=== PATIENT | male | born 1950 | race Caucasian/White ===

== ENCOUNTER 2021-05-31 14:28 | Emergency (ER) | payer MEDICARE, OTHER ==
[2021-05-31] MEDS ORDERED: Sodium Chloride 0.9% 10 ML Syringe FLUSH PRN (15:18)
[2021-05-31] MEDS ORDERED: Sodium Chloride 0.9% 2.5 ML Syringe FLUSH PRN (15:18)
[2021-05-31] MEDS ORDERED: Sodium Chloride 0.9% 1,000 ML IV ONE (15:19)
--- NOTE | 2021-05-31 15:29 | EDM.PDOC ---
ED HPI GENERAL MEDICAL PROBLEM - General Chief Complaint: General Stated Complaint: DIZZY AND HAS NO BALANCE Time Seen by Provider: 05/31/21 15:16 - History of Present Illness INITIAL COMMENTS - FREE TEXT/NARRATIVE: History of present illness: [] The patient says he is dizzy. He can only walk. He is weak and cannot raise his arms very well. Nothing is asymmetric or focal. The patient says he not drinking. The last time he was here was 6 years ago and he was sent to [place] for acute alcohol intoxication and alcohol dependence. Review of systems: As per history of present illness and below otherwise all systems reviewed and negative. Past medical history: As per history of present illness and as reviewed below otherwise noncontributory. Surgical history: As per history of present illness and as reviewed below otherwise noncontributory. Social history: No reported history of drug or alcohol abuse. Family history: As per history of present illness and as reviewed below otherwise noncontributory. Physical exam: Constitutional - well developed, well-nourished and in no acute distress HEENT - normocephalic, no evidence of trauma - external nose and mouth normal - no mass in neck and no JVD - mucosae moist EYES - full EOM, PERRL, no icterus - no evidence of inflammation, injection, or drainage Respiratory - no respiratory distress, equal bilateral expansion, lungs clear to auscultation and no abnormal lung sounds Cardiovascular - Regular Rhythm with S1 and S2 appreciated and no murmur, gallop or rub. GI - abdomen soft without distension or organomegaly - normal bowel sounds - no guard or rebound Musculoskeletal no gross deformity of long bones or joints - no tenderness, swelling or edema Neurologic - Alert and oriented times four - CN II-XII grossly intact - motor sensory and coordination symmetrically normal Psychiatric - appropriate mood and affect with normal thought content Hematologic - No petechiae or purpura - mucosa appropriate color and sclera not pale - normal nail bed color and refill Integument - no rash or evidence of trauma - normal turgor Diagnostics: [] Therapeutics: [] Impression: [] Plan: [] Definitive disposition and diagnosis as appropriate pending reevaluation and review of above. - Related Data Allergies Allergy/AdvReac Type Severity Reaction Status Date / Time No Known Allergies Allergy Verified 05/31/21 15:10 Home Meds: Home Meds Multivitamin 1 tab PO DAILY 05/31/21 [History] Past Medical History Other HEENT History: glasses Other Cardiovascular History: previously on metoprolol for blood pressure, denies taking medication at this time Other Musculoskeletal History: Fractured neck in 2001, refused surgery Other Psychiatric History: ETOH abuse - Past Surgical History Other Neurological Surgeries/Procedures: hx neck fracture Social & Family History - Family History Family Medical History: No Pertinent Family History - Tobacco Use Tobacco Use Status *Q: Never Tobacco User - Recreational Drug Use Recreational Drug Use: No ED ROS GENERAL - Review of Systems Review Of Systems: Comprehensive ROS is negative, except as noted in HPI. ED EXAM, GENERAL - Physical Exam Exam: See Below Free Text/Narrative:: My physical exam is in the HPI #1 Interpretation EKG Interpretation Comments: KG sinus rhythm heart rate 79 NC 163 QT duration 445 axis 58 no acute injury impression no acute injury Course - Vital Signs Text/Narrative:: Patient has a broad-based gait and a little ataxia. This is not new according to the son's girlfriend. Patient says his home is fairly well elderly proved. He wants to go home. He is markedly improved after hydration and his blood pressure was raised a bit. He is advised to eat and drink a little more each day. Last Recorded V/S: Last Vital Signs Temp 35.9 C L 05/31/21 15:11 Pulse 76 05/31/21 15:11 Resp 17 05/31/21 15:11 BP 105/55 L 05/31/21 15:11 Pulse Ox 94 L 05/31/21 15:11 - Orders/Labs/Meds Orders: Active Orders 24 hr Category Date Time Status EKG Documentation Completion [RC] AM Care 05/31/21 15:18 Active UA W/OLIVERIO RFLX IF INDICATED [URIN] Stat Lab 05/31/21 17:05 Received Sodium Chloride 0.9% [Saline Flush] Med 05/31/21 15:18 Active 10 ml FLUSH ASDIRECTED PRN Sodium Chloride 0.9% [Saline Flush] Med 05/31/21 15:18 Active 2.5 ml FLUSH ASDIRECTED PRN Saline Lock Insert [OM.PC] Stat Oth 05/31/21 15:18 Ordered Medication Orders Sodium Chloride (Sodium Chloride 0.9% 10 Ml Syringe) 10 ml FLUSH ASDIRECTED PRN PRN Reason: Keep Vein Open Last Admin: 05/31/21 15:57 Dose: 10 ml Documented by: ROGELIO Sodium Chloride (Sodium Chloride 0.9% 2.5 Ml Syringe) 2.5 ml FLUSH ASDIRECTED PRN PRN Reason: Keep Vein Open Last Admin: 05/31/21 15:58 Dose: 2.5 ml Documented by: ROGELIO Labs: Laboratory Tests 05/31/21 05/31/21 05/31/21 Range/Units 15:54 15:54 15:54 WBC 4.77 (4.0-11.0) K/uL RBC 4.47 L (4.50-5.90) M/uL Hgb 14.0 (13.0-17.0) g/dL Hct 41.1 (38.0-50.0) % MCV 91.9 (80.0-98.0) fL MCH 31.3 (27.0-32.0) pg MCHC 34.1 (31.0-37.0) g/dL RDW Std Deviation 50.3 (28.0-62.0) fl RDW Coeff of Brian 15 (11.0-15.0) % Plt Count 156 (150-400) K/uL MPV 12.00 (7.40-12.00) fL Neut % (Auto) 47.8 L (48.0-80.0) % Lymph % (Auto) 36.3 (16.0-40.0) % [place] % (Auto) 12.6 (0.0-15.0) % Eos % (Auto) 2.9 (0.0-7.0) % Baso % (Auto) 0.4 (0.0-1.5) % Neut # (Auto) 2.3 (1.4-5.7) K/uL Lymph # (Auto) 1.7 (0.6-2.4) K/uL [place] # (Auto) 0.6 (0.0-0.8) K/uL Eos # (Auto) 0.1 (0.0-0.7) K/uL Baso # (Auto) 0.0 (0.0-0.1) K/uL Nucleated RBC % 0.0 /100WBC Nucleated RBCs # 0 K/uL Sodium 136 (136-148) mmol/L Potassium 4.2 (3.5-5.1) mmol/L Chloride 102 (98-107) mmol/L Carbon Dioxide 27.6 (21.0-32.0) mmol/L BUN 21 H (7.0-18.0) mg/dL Creatinine 1.0 (0.8-1.3) mg/dL Est Cr Clr Drug Dosing 61.20 mL/min Estimated GFR (MDRD) > 60.0 ml/min Glucose 89 (74-106) mg/dL Lactic Acid (0.4-2.0) mmol/L Calcium 9.3 (8.5-10.1) mg/dL Magnesium 1.9 (1.8-2.4) mg/dL Total Bilirubin 0.8 (0.2-1.0) mg/dL AST 30 (15-37) IU/L ALT 51 (14-63) IU/L Alkaline Phosphatase 69 (46-116) U/L Troponin I < 0.050 (0.000-0.056) ng/mL Total Protein 6.8 (6.4-8.2) g/dL Albumin 4.1 (3.4-5.0) g/dL Globulin 2.7 (2.6-4.0) g/dL Albumin/Globulin Ratio 1.5 (0.9-1.6) Ethyl Alcohol < 3.0 mg/dL 05/31/21 Range/Units 16:10 WBC (4.0-11.0) K/uL RBC (4.50-5.90) M/uL Hgb (13.0-17.0) g/dL Hct (38.0-50.0) % MCV (80.0-98.0) fL MCH (27.0-32.0) pg MCHC (31.0-37.0) g/dL RDW Std Deviation (28.0-62.0) fl RDW Coeff of Brian (11.0-15.0) % Plt Count (150-400) K/uL MPV (7.40-12.00) fL Neut % (Auto) (48.0-80.0) % Lymph % (Auto) (16.0-40.0) % [place] % (Auto) (0.0-15.0) % Eos % (Auto) (0.0-7.0) % Baso % (Auto) (0.0-1.5) % Neut # (Auto) (1.4-5.7) K/uL Lymph # (Auto) (0.6-2.4) K/uL [place] # (Auto) (0.0-0.8) K/uL Eos # (Auto) (0.0-0.7) K/uL Baso # (Auto) (0.0-0.1) K/uL Nucleated RBC % /100WBC Nucleated RBCs # K/uL Sodium (136-148) mmol/L Potassium (3.5-5.1) mmol/L Chloride (98-107) mmol/L Carbon Dioxide (21.0-32.0) mmol/L BUN (7.0-18.0) mg/dL Creatinine (0.8-1.3) mg/dL Est Cr Clr Drug Dosing mL/min Estimated GFR (MDRD) ml/min Glucose (74-106) mg/dL Lactic Acid 0.9 (0.4-2.0) mmol/L Calcium (8.5-10.1) mg/dL Magnesium (1.8-2.4) mg/dL Total Bilirubin (0.2-1.0) mg/dL AST (15-37) IU/L ALT (14-63) IU/L Alkaline Phosphatase (46-116) U/L Troponin I (0.000-0.056) ng/mL Total Protein (6.4-8.2) g/dL Albumin (3.4-5.0) g/dL Globulin (2.6-4.0) g/dL Albumin/Globulin Ratio (0.9-1.6) Ethyl Alcohol mg/dL Meds: Medications Generic Name Dose Route Start Last Admin Trade Name Freq PRN Reason Stop Dose Admin Sodium Chloride 10 ml 05/31/21 15:18 05/31/21 15:57 Sodium Chloride 0.9% 10 Ml Syringe FLUSH 10 ml ASDIRECTED PRN Administration Keep Vein Open Sodium Chloride 2.5 ml 05/31/21 15:18 05/31/21 15:58 Sodium Chloride 0.9% 2.5 Ml Syringe FLUSH 2.5 ml ASDIRECTED PRN Administration Keep Vein Open Discontinued Medications Generic Name Dose Route Start Last Admin Trade Name Freq PRN Reason Stop Dose Admin Sodium Chloride 1,000 mls @ 1,000 mls/hr 05/31/21 15:19 05/31/21 15:57 Normal Saline IV 05/31/21 16:18 1,000 mls/hr .Bolus ONE Administration Departure - Departure Time of Disposition: 17:16 Disposition: Home, Self-Care 01 Condition: Good Clinical Impression: Ataxia, Dehydration - Discharge Information Instructions: Dehydration, Adult, [id number] Referrals: PCP,None [Primary Care Provider] - Forms: ED Department Discharge Additional Instructions: Eat and drink more often and more The following information is given to patients seen in the emergency department who are being discharged to home. This information is to outline your options for follow-up care. We provide all patients seen in our emergency department with a follow-up referral. The need for follow-up, as well as the timing and circumstances, are variable depending upon the specifics of your emergency department visit. If you don't have a primary care physician on staff, we will provide you with a referral. We always advise you to contact your personal physician following an emergency department visit to inform them of the circumstance of the visit and for follow-up with them and/or the need for any referrals to a consulting specialist. The emergency department will also refer you to a specialist when appropriate. This referral assures that you have the opportunity for follow-up care with a specialist. All of these measure are taken in an effort to provide you with optimal care, which includes your follow-up. Under all circumstances we always encourage you to contact your private physician who remains a resource for coordinating your care. When calling for follow-up care, please make the office aware that this follow-up is from your recent emergency room visit. If for any reason you are refused follow-up, please contact the [facility] Emergency Department at and asked to speak to the emergency department charge nurse. [facility] - Primary Care [address] [place] [id number] [facility] [address] [place] [id number] Sepsis Event Note (ED) - Evaluation Sepsis Screening Result: No Definite Risk - Focused Exam Vital Signs: Vital Signs Temp Pulse Resp BP Pulse Ox 05/31/21 15:11 35.9 C L 76 17 105/55 L 94 L - My Orders Last 24 Hours: My Active Orders 05/31/21 15:18 EKG Documentation Completion [RC] AM Sodium Chloride 0.9% [Saline Flush] 10 ml FLUSH ASDIRECTED PRN Sodium Chloride 0.9% [Saline Flush] 2.5 ml FLUSH ASDIRECTED PRN Saline Lock Insert [OM.PC] Stat 05/31/21 17:05 UA W/OLIVERIO RFLX IF INDICATED [URIN] Stat - Assessment/Plan Last 24 Hours: My Active Orders 05/31/21 15:18 EKG Documentation Completion [RC] AM Sodium Chloride 0.9% [Saline Flush] 10 ml FLUSH ASDIRECTED PRN Sodium Chloride 0.9% [Saline Flush] 2.5 ml FLUSH ASDIRECTED PRN Saline Lock Insert [OM.PC] Stat 05/31/21 17:05 UA W/OLIVERIO RFLX IF INDICATED [URIN] Stat
[2021-05-31 16:46] LABS: BLOOD UREA NITROGEN,BUN 21 mg/dL (7.0-18.0); CARBON DIOXIDE,CO2 27.6 mmol/L (21.0-32.0); CHLORIDE,CL 102 mmol/L (98-107); GLUCOSE RANDOM 89 mg/dL (74-106); POTASSIUM,K 4.2 mmol/L (3.5-5.1); SODIUM,NA 136 mmol/L (136-148)
[2021-05-31 17:18] VITALS: BP 149/94; PULSE 90
== END 2021-05-31 17:43 | disposition home or self-care (01) ==
LOC: MW.ED 14:28
DX: R27.0 Ataxia, unspecified (principal); E86.0 Dehydration
CPT/HCPCS: 80053; 80307; 81003; 83605; 83735; 84484; 85025; 93005; 99285; J7030; 93010; 99284

== ENCOUNTER 2021-06-01 11:32 | Emergency (ER) | payer MEDICARE, OTHER ==
--- NOTE | 2021-06-01 12:28 | EDM.PDOC ---
ED HPI GENERAL MEDICAL PROBLEM - General Chief Complaint: General Stated Complaint: Couldnt walk this morning Time Seen by Provider: 06/01/21 11:34 - History of Present Illness INITIAL COMMENTS - FREE TEXT/NARRATIVE: History of present illness: [] Review of systems: As per history of present illness and below otherwise all systems reviewed and negative. Past medical history: As per history of present illness and as reviewed below otherwise noncontributory. The patient is weak. He has trouble walking. He had the same thing yesterday morning and was hydrated and afterwards he was able to walk with the same usual ataxic that he has experienced for quite some time. He is a former alcoholic but not drinking recently. Patient has no focal findings but feels weak in his upper and lower extremities. Surgical history: As per history of present illness and as reviewed below otherwise noncontributory. Social history: No reported history of drug or alcohol abuse. Family history: As per history of present illness and as reviewed below otherwise noncontributory. Physical exam: Constitutional - well developed, well-nourished and in no acute distress HEENT - normocephalic, no evidence of trauma - external nose and mouth normal - no mass in neck and no JVD - mucosae moist EYES - full EOM, PERRL, no icterus - no evidence of inflammation, injection, or drainage Respiratory - no respiratory distress, equal bilateral expansion, lungs clear to auscultation and no abnormal lung sounds Cardiovascular - Regular Rhythm with S1 and S2 appreciated and no murmur, gallop or rub. GI - abdomen soft without distension or organomegaly - normal bowel sounds - no guard or rebound Musculoskeletal no gross deformity of long bones or joints - no tenderness, swelling or edema Neurologic - Alert and oriented times four - CN II-XII grossly intact - motor sensory and coordination symmetrically normal Psychiatric - appropriate mood and affect with normal thought content Hematologic - No petechiae or purpura - mucosa appropriate color and sclera not pale - normal nail bed color and refill Integument - no rash or evidence of trauma - normal turgor Diagnostics: [] Therapeutics: [] Impression: [] Plan: [] Definitive disposition and diagnosis as appropriate pending reevaluation and review of above. - Related Data Allergies Allergy/AdvReac Type Severity Reaction Status Date / Time No Known Allergies Allergy Verified 06/01/21 12:26 Home Meds: Home Meds Multivitamin 1 tab PO DAILY 05/31/21 [History] Magnesium Oxide/Magnesium [Magnesium] 300 mg PO BID #60 capsule 06/01/21 [Rx] Past Medical History Other HEENT History: glasses Other Cardiovascular History: previously on metoprolol for blood pressure, denies taking medication at this time Other Musculoskeletal History: Fractured neck in 2001, refused surgery Other Psychiatric History: ETOH abuse - Past Surgical History Other Neurological Surgeries/Procedures: hx neck fracture Social & Family History - Family History Family Medical History: No Pertinent Family History ED ROS GENERAL - Review of Systems Review Of Systems: Comprehensive ROS is negative, except as noted in HPI. ED EXAM, GENERAL - Physical Exam Exam: See Below Free Text/Narrative:: My physical exam is in the HPI #1 Interpretation EKG Interpretation Comments: EKG sinus rhythm heart rate 86 MD interval 168 QT 463 axis 57 accelerated R wave progression in the precordium impression essentially normal Course - Vital Signs Last Recorded V/S: Last Vital Signs Temp 36.4 C 06/01/21 12:26 Pulse 67 06/01/21 16:09 Resp 18 06/01/21 13:58 BP 130/82 06/01/21 16:09 Pulse Ox 97 06/01/21 16:09 - Orders/Labs/Meds Orders: Active Orders 24 hr Category Date Time Status EKG Documentation Completion [RC] AM Care 06/01/21 12:37 Active RPR (SYPHILIS SERO) W/ RFLX [REF] Stat Lab 06/01/21 14:40 Received Sodium Chloride 0.9% [Saline Flush] Med 06/01/21 12:37 Active 10 ml FLUSH ASDIRECTED PRN Sodium Chloride 0.9% [Saline Flush] Med 06/01/21 12:37 Active 2.5 ml FLUSH ASDIRECTED PRN Saline Lock Insert [OM.PC] Stat Oth 06/01/21 12:37 Ordered Medication Orders Sodium Chloride (Sodium Chloride 0.9% 10 Ml Syringe) 10 ml FLUSH ASDIRECTED PRN PRN Reason: Keep Vein Open Last Admin: 06/01/21 13:24 Dose: 10 ml Documented by: [id number] Sodium Chloride (Sodium Chloride 0.9% 2.5 Ml Syringe) 2.5 ml FLUSH ASDIRECTED PRN PRN Reason: Keep Vein Open Last Admin: 06/01/21 13:24 Dose: 2.5 ml Documented by: [id number] Labs: Laboratory Tests 06/01/21 06/01/21 Range/Units 12:55 12:55 WBC 7.85 (4.0-11.0) K/uL RBC 4.51 (4.50-5.90) M/uL Hgb 14.0 (13.0-17.0) g/dL Hct 41.2 (38.0-50.0) % MCV 91.4 (80.0-98.0) fL MCH 31.0 (27.0-32.0) pg MCHC 34.0 (31.0-37.0) g/dL RDW Std Deviation 49.1 (28.0-62.0) fl RDW Coeff of Brian 15 (11.0-15.0) % Plt Count 154 (150-400) K/uL MPV 12.20 H (7.40-12.00) fL Neut % (Auto) 69.2 (48.0-80.0) % Lymph % (Auto) 17.6 (16.0-40.0) % [place] % (Auto) 11.8 (0.0-15.0) % Eos % (Auto) 1.1 (0.0-7.0) % Baso % (Auto) 0.3 (0.0-1.5) % Neut # (Auto) 5.4 (1.4-5.7) K/uL Lymph # (Auto) 1.4 (0.6-2.4) K/uL [place] # (Auto) 0.9 H (0.0-0.8) K/uL Eos # (Auto) 0.1 (0.0-0.7) K/uL Baso # (Auto) 0.0 (0.0-0.1) K/uL Nucleated RBC % 0.0 /100WBC Nucleated RBCs # 0 K/uL Sodium 140 (136-148) mmol/L Potassium 4.3 (3.5-5.1) mmol/L Chloride 105 (98-107) mmol/L Carbon Dioxide 28.0 (21.0-32.0) mmol/L BUN 18 (7.0-18.0) mg/dL Creatinine 1.0 (0.8-1.3) mg/dL Est Cr Clr Drug Dosing 61.20 mL/min Estimated GFR (MDRD) > 60.0 ml/min Glucose 95 (74-106) mg/dL Calcium 8.9 (8.5-10.1) mg/dL Magnesium 1.7 L (1.8-2.4) mg/dL Total Bilirubin 1.0 (0.2-1.0) mg/dL AST 38 H (15-37) IU/L ALT 45 (14-63) IU/L Alkaline Phosphatase 66 (46-116) U/L Total Protein 6.6 (6.4-8.2) g/dL Albumin 3.9 (3.4-5.0) g/dL Globulin 2.7 (2.6-4.0) g/dL Albumin/Globulin Ratio 1.4 (0.9-1.6) Meds: Medications Generic Name Dose Route Start Last Admin Trade Name Amado PRN Reason Stop Dose Admin Sodium Chloride 10 ml 06/01/21 12:37 06/01/21 13:24 Sodium Chloride 0.9% 10 Ml Syringe FLUSH 10 ml ASDIRECTED PRN Administration Keep Vein Open Sodium Chloride 2.5 ml 06/01/21 12:37 06/01/21 13:24 Sodium Chloride 0.9% 2.5 Ml Syringe FLUSH 2.5 ml ASDIRECTED PRN Administration Keep Vein Open Discontinued Medications Generic Name Dose Route Start Last Admin Trade Name Amado PRN Reason Stop Dose Admin Multivitamins/Minerals 10 ml/ 1,011.2 mls @ 999 mls/hr 06/01/21 13:15 06/01/21 13:24 Thiamine HCl 100 mg/ Folic IV 06/01/21 14:15 999 mls/hr Acid 1 mg/ Sodium Chloride ONETIME ONE Administration Iopamidol 100 ml 06/01/21 15:40 06/01/21 15:41 Iopamidol 755 Mg/Ml 500 Ml Multipack Bottle IVPUSH 06/01/21 15:41 100 ml ONETIME ONE Administration Departure - Departure Time of Disposition: 16:27 Disposition: Home, Self-Care 01 Condition: Good Clinical Impression: Ataxia - Discharge Information Prescriptions: Magnesium Oxide/Magnesium [Magnesium] 300 mg PO BID #60 capsule Referrals: PCP,None [Primary Care Provider] - Forms: ED Department Discharge Additional Instructions: You need to make an appointment with the neurology clinic in the meantime you need to take [id number] thiamine, [id number] folic acid, and one 325 mg aspirin daily. A prescription for magnesium replacement was also sent to your pharmacy. [facility] - Neurology Professional Building [address] [facility], [address] [place] [address] [facility] - Primary Care [address] [place] [id number] [facility] [address] [place] [id number] The following information is given to patients seen in the emergency department who are being discharged to home. This information is to outline your options for follow-up care. We provide all patients seen in our emergency department with a follow-up referral. The need for follow-up, as well as the timing and circumstances, are variable depending upon the specifics of your emergency department visit. If you don't have a primary care physician on staff, we will provide you with a referral. We always advise you to contact your personal physician following an emergency department visit to inform them of the circumstance of the visit and for follow-up with them and/or the need for any referrals to a consulting specialist. The emergency department will also refer you to a specialist when appropriate. This referral assures that you have the opportunity for follow-up care with a specialist. All of these measure are taken in an effort to provide you with optimal care, which includes your follow-up. Under all circumstances we always encourage you to contact your private physician who remains a resource for coordinating your care. When calling for follow-up care, please make the office aware that this follow-up is from your recent emergency room visit. If for any reason you are refused follow-up, please contact the [facility] Emergency Department at and asked to speak to the emergency department charge nurse. Sepsis Event Note (ED) - Focused Exam Vital Signs: Vital Signs Temp Pulse Resp BP Pulse Ox 06/01/21 16:09 67 130/82 97 06/01/21 16:05 76 130/82 96 06/01/21 13:58 77 18 116/77 98 06/01/21 13:28 79 17 98/61 94 L 06/01/21 12:26 36.4 C 87 17 100/55 L 97 - My Orders Last 24 Hours: My Active Orders 06/01/21 12:37 EKG Documentation Completion [RC] AM Sodium Chloride 0.9% [Saline Flush] 10 ml FLUSH ASDIRECTED PRN Sodium Chloride 0.9% [Saline Flush] 2.5 ml FLUSH ASDIRECTED PRN Saline Lock Insert [OM.PC] Stat 06/01/21 14:40 RPR (SYPHILIS SERO) W/ RFLX [REF] Stat - Assessment/Plan Last 24 Hours: My Active Orders 06/01/21 12:37 EKG Documentation Completion [RC] AM Sodium Chloride 0.9% [Saline Flush] 10 ml FLUSH ASDIRECTED PRN Sodium Chloride 0.9% [Saline Flush] 2.5 ml FLUSH ASDIRECTED PRN Saline Lock Insert [OM.PC] Stat 06/01/21 14:40 RPR (SYPHILIS SERO) W/ RFLX [REF] Stat
[2021-06-01] MEDS ORDERED: Sodium Chloride 0.9% 2.5 ML Syringe FLUSH PRN (12:37)
[2021-06-01] MEDS ORDERED: Sodium Chloride 0.9% 10 ML Syringe FLUSH PRN (12:37)
[2021-06-01] MEDS ORDERED: MVI, Adult with Vitamin K 10 ML, Thiamine 100 MG, Folic Acid 1 MG in Sodium Chloride 0.... IV ONE ×8 (12:38→13:15)
[2021-06-01 13:24] LABS: BLOOD UREA NITROGEN,BUN 18 mg/dL (7.0-18.0); CHLORIDE,CL 105 mmol/L (98-107); GLUCOSE RANDOM 95 mg/dL (74-106); POTASSIUM,K 4.3 mmol/L (3.5-5.1); SODIUM,NA 140 mmol/L (136-148)
[2021-06-01] MEDS ORDERED: Iopamidol 755 MG/ML 500 ML Multipack Bottle IVPUSH ONE (15:40)
--- NOTE | 2021-06-01 16:01 | CT ---
For Patients: As a result of the Century Cures Act, medical imaging exams and procedure reports are released immediately into your electronic medical record. You may view this report before your referring provider. If you have questions, please contact your health care provider. CT HEAD DATE: 06/01/2021 CLINICAL HISTORY: Patient with ataxia. TECHNIQUE: Standard CT scanning of the head was performed. COMPARISON: None. FINDINGS: There is no intracranial hemorrhage. There is no territorial infarction. There are moderate microangiopathic changes. There is diffuse parenchymal volume loss. There is no mass effect or midline shift. The calvarium is unremarkable. The orbits are unremarkable. The paranasal sinuses are unremarkable. The mastoid air cells are unremarkable. The soft tissues are unremarkable. IMPRESSION: 1. No intracranial hemorrhage or territorial infarction. 2. Moderate microangiopathic changes and diffuse parenchymal volume loss. Please note that all CT scans at this facility use dose modulation, iterative reconstruction, and/or weight-based dosing when appropriate to reduce radiation dose to as low as reasonably achievable. Dictated by: Jaya Dumont MD @ 06/01/2021 16:00:00 (Electronically Signed)
--- NOTE | 2021-06-01 16:05 | CT ---
DATE: 06/01/2021 CLINICAL HISTORY: Patient with ataxia. TECHNIQUE: Standard helical CT image acquisition through the head and neck was performed after intravenous contrast bolus enhancement. Multiplanar reconstructed images were performed and interpreted. COMPARISON: CT same day FINDINGS: The origins of the great vessels from the aortic arch are patent. The origin of the right vertebral artery demonstrates severe narrowing. The origin of the left vertebral artery is patent. The common carotid arteries are patent There is no stenosis at the origin of the right internal carotid artery. There is plaque without stenosis at the origin of the left internal carotid artery. The rest of the cervical segments of the internal carotid arteries are patent up to their intracranial segments. The intracranial segments of the internal carotid arteries are patent. The left vertebral artery is dominant. The cervical segments of the vertebral arteries are patent. The intracranial segments of the vertebral arteries are patent. The middle cerebral arteries are normal without aneurysm or proximal occlusion identified. The anterior cerebral arteries are normal without aneurysm or proximal occlusion identified. The anterior communicating artery is well visualized and appears normal. The basilar artery is normal without aneurysm or occlusion. The posterior cerebral arteries are normal without aneurysm or proximal occlusion. The visualized lung apices are unremarkable The thyroid gland is unremarkable. The soft tissues of the neck are unremarkable. There are degenerative changes in the cervical spine. IMPRESSION: 1. 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 Patent dominant left vertebral artery. 2. Patent rest of the cervical and proximal intracranial vasculature. Please note that all CT scans at this facility use dose modulation, iterative reconstruction, and/or weight-based dosing when appropriate to reduce radiation dose to as low as reasonably achievable. Dictated by Jaya Dumont MD @ 06/01/2021 4:04:[address] Jaya Dumont @ Jun 01 2021 4:04PM
[2021-06-01 16:09] VITALS: BP 130/82; PULSE 67
== END 2021-06-01 17:10 | disposition home or self-care (01) ==
LOC: MW.ED 11:32
DX: R27.0 Ataxia, unspecified (principal)
CPT/HCPCS: 36415; 70450; 70496; 70498; 80053; 83735; 85025; 86592; 93005; 96365; 99285; J3411; J7030; Q9967

== ENCOUNTER 2021-06-07 14:57 | Inpatient (IN) | payer MEDICARE, OTHER ==
[2021-06-07] MEDS ORDERED: Sodium Chloride 0.9% 500 ML IV ONE (15:27)
[2021-06-07] MEDS ORDERED: Sodium Chloride 0.9% 2.5 ML Syringe FLUSH PRN (15:27)
[2021-06-07] MEDS ORDERED: Sodium Chloride 0.9% 10 ML Syringe FLUSH PRN (15:27)
--- NOTE | 2021-06-07 15:30 | EDM.PDOC ---
ED HPI GENERAL MEDICAL PROBLEM - General Chief Complaint: General Stated Complaint: SOB Time Seen by Provider: 06/07/21 15:09 Source of Information: Reports: Patient History Limitations: Reports: No Limitations - History of Present Illness INITIAL COMMENTS - FREE TEXT/NARRATIVE: 71-year-old male past medical history alcohol abuse presents for worsening generalized weakness. Patient notes that he is been to the ER a couple of times in the last week for frequent falls. Patient denies having any falls today. Patient notes that he lives in a small house without air conditioning and that his son's mother had been helping to take care of him but feels like she is no longer able to take care of him. He did sit on the ground today because he felt weak and was unable to get up on his own. He notes that he was offered admission to the hospital the last time he was here but he declined. He feels like at this point he might benefit from subacute rehab therapy or at the least home health services as he feels unable to take care of himself at home. He notes several pound weight loss unintentionally over the last couple of years due to lack of appetite. He denies any chest pain or difficulty breathing. No recent fevers or illnesses. - Related Data Allergies Allergy/AdvReac Type Severity Reaction Status Date / Time No Known Allergies Allergy Verified 06/07/21 14:58 Home Meds: Home Meds Multivitamin 1 tab PO DAILY 05/31/21 [History] Magnesium Oxide/Magnesium [Magnesium] 300 mg PO BID #60 capsule 06/01/21 [Rx] Past Medical History Other HEENT History: glasses Other Cardiovascular History: previously on metoprolol for blood pressure, denies taking medication at this time Other Musculoskeletal History: Fractured neck in 2001, refused surgery Other Psychiatric History: ETOH abuse - Infectious Disease History Infectious Disease History: Reports: None - Past Surgical History Other Neurological Surgeries/Procedures: hx neck fracture Social & Family History - Family History Family Medical History: No Pertinent Family History - Tobacco Use Tobacco Use Status *Q: Never Tobacco User - Recreational Drug Use Recreational Drug Use: No ED ROS GENERAL - Review of Systems Review Of Systems: Comprehensive ROS is negative, except as noted in HPI. ED EXAM, GENERAL - Physical Exam Exam: See Below Exam Limited By: No Limitations General Appearance: Alert, WD/WN, No Apparent Distress Ears: Hearing Grossly Normal Throat/Mouth: Normal Voice, No Airway Compromise Head: Atraumatic, Normocephalic Neck: Normal Inspection, Non-Tender Respiratory/Chest: No Respiratory Distress, Lungs Clear, Normal Breath Sounds, No Accessory Muscle Use Cardiovascular: Normal Peripheral Pulses, Regular Rate, Rhythm GI/Abdominal: Soft, Non-Tender Back Exam: Normal Inspection Extremities: Normal Inspection Neurological: Alert, CN II-XII Intact, Normal Cognition, No Motor/Sensory Deficits Psychiatric: Normal Affect, Normal Mood Skin Exam: Warm, Dry, Intact, Normal Color #1 Interpretation EKG Date: 06/07/21 Time: 16:05 Rhythm: NSR Rate (Beats/Min): 78 Calvin: Normal P-Wave: Present QRS: Normal ST-T: Normal QT: Normal SC/PQ Interval: 162 Comparison: NA - No Prior EKG EKG Interpretation Comments: no ischemic changes identified Course - Vital Signs Last Recorded V/S: Last Vital Signs Temp 96.7 F L 06/07/21 14:59 Pulse 84 06/07/21 14:59 Resp 18 06/07/21 14:59 BP 103/73 06/07/21 14:59 Pulse Ox 95 06/07/21 14:59 - Orders/Labs/Meds Orders: Active Orders 24 hr Category Date Time Status Patient Status [ADT] Routine ADT 06/07/21 17:33 Ordered EKG Documentation Completion [RC] STAT Care 06/07/21 15:27 Active CORONAVIRUS COVID-19 LINDY [MOLEC] Stat Lab 06/07/21 15:32 Ordered LACTATE SEPSIS W/ REFLEX [CHEM] Stat Lab 06/07/21 16:05 Received Sodium Chloride 0.9% [Saline Flush] Med 06/07/21 15:27 Active 10 ml FLUSH ASDIRECTED PRN Sodium Chloride 0.9% [Saline Flush] Med 06/07/21 15:27 Active 2.5 ml FLUSH ASDIRECTED PRN Saline Lock Insert [OM.PC] Stat Oth 06/07/21 15:27 Ordered Medication Orders Sodium Chloride (Sodium Chloride 0.9% 10 Ml Syringe) 10 ml FLUSH ASDIRECTED PRN PRN Reason: Keep Vein Open Last Admin: 06/07/21 16:56 Dose: 10 ml Documented by: ANNE-MARIE Sodium Chloride (Sodium Chloride 0.9% 2.5 Ml Syringe) 2.5 ml FLUSH ASDIRECTED PRN PRN Reason: Keep Vein Open Last Admin: 06/07/21 16:57 Dose: 2.5 ml Documented by: ANNE-MARIE Labs: Laboratory Tests 06/07/21 06/07/21 06/07/21 Range/Units 15:41 16:05 16:05 WBC 6.99 (4.0-11.0) K/uL RBC 4.72 (4.50-5.90) M/uL Hgb 14.9 (13.0-17.0) g/dL Hct 43.8 (38.0-50.0) % MCV 92.8 (80.0-98.0) fL MCH 31.6 (27.0-32.0) pg MCHC 34.0 (31.0-37.0) g/dL RDW Std Deviation 49.6 (28.0-62.0) fl RDW Coeff of Brian 15 (11.0-15.0) % Plt Count 170 (150-400) K/uL MPV 11.90 (7.40-12.00) fL Neut % (Auto) 60.7 (48.0-80.0) % Lymph % (Auto) 25.3 (16.0-40.0) % [place] % (Auto) 11.0 (0.0-15.0) % Eos % (Auto) 2.4 (0.0-7.0) % Baso % (Auto) 0.6 (0.0-1.5) % Neut # (Auto) 4.2 (1.4-5.7) K/uL Lymph # (Auto) 1.8 (0.6-2.4) K/uL [place] # (Auto) 0.8 (0.0-0.8) K/uL Eos # (Auto) 0.2 (0.0-0.7) K/uL Baso # (Auto) 0.0 (0.0-0.1) K/uL Nucleated RBC % 0.0 /100WBC Nucleated RBCs # 0 K/uL Sodium 135 L (136-148) mmol/L Potassium 5.0 (3.5-5.1) mmol/L Chloride 100 (98-107) mmol/L Carbon Dioxide 31.6 (21.0-32.0) mmol/L BUN 18 (7.0-18.0) mg/dL Creatinine 0.9 (0.8-1.3) mg/dL Est Cr Clr Drug Dosing 53.93 mL/min Estimated GFR (MDRD) > 60.0 ml/min Glucose 98 (74-106) mg/dL Calcium 9.3 (8.5-10.1) mg/dL Magnesium 2.0 (1.8-2.4) mg/dL Total Bilirubin 1.0 (0.2-1.0) mg/dL AST 40 H (15-37) IU/L ALT 48 (14-63) IU/L Alkaline Phosphatase 78 (46-116) U/L Troponin I < 0.050 (0.000-0.056) ng/mL Total Protein 7.1 (6.4-8.2) g/dL Albumin 3.8 (3.4-5.0) g/dL Globulin 3.3 (2.6-4.0) g/dL Albumin/Globulin Ratio 1.2 (0.9-1.6) Lipase 158 (73-393) U/L Free T4 1.21 (0.76-1.46) ng/dL TSH, Ultra Sensitive 5.30 H (0.36-3.74) uIU/mL Urine Color YELLOW Urine Appearance CLEAR Urine pH 6.0 (5.0-8.0) Ur Specific [place] 1.020 (1.001-1.035) Urine Protein NEGATIVE (NEGATIVE) mg/dL Urine Glucose (UA) NEGATIVE (NEGATIVE) mg/dL Urine Ketones NEGATIVE (NEGATIVE) mg/dL Urine Occult Blood NEGATIVE (NEGATIVE) Urine Nitrite NEGATIVE (NEGATIVE) Urine Bilirubin NEGATIVE (NEGATIVE) Urine Urobilinogen 0.2 (<2.0) EU/dL Ur Leukocyte Esterase NEGATIVE (NEGATIVE) Meds: Medications Generic Name Dose Route Start Last Admin Trade Name Freq PRN Reason Stop Dose Admin Sodium Chloride 10 ml 06/07/21 15:27 06/07/21 16:56 Sodium Chloride 0.9% 10 Ml Syringe FLUSH 10 ml ASDIRECTED PRN Administration Keep Vein Open Sodium Chloride 2.5 ml 06/07/21 15:27 06/07/21 16:57 Sodium Chloride 0.9% 2.5 Ml Syringe FLUSH 2.5 ml ASDIRECTED PRN Administration Keep Vein Open Discontinued Medications Generic Name Dose Route Start Last Admin Trade Name Freq PRN Reason Stop Dose Admin Sodium Chloride 500 mls @ 999 mls/hr 06/07/21 15:27 06/07/21 16:56 Normal Saline IV 06/07/21 15:57 999 mls/hr .Bolus ONE Administration - Re-Assessments/Exams Free Text/Narrative Re-Assessment/Exam: 06/07/21 15:32 Patient's symptoms concerning for adult failure to thrive. Will get labs. Will get head CT. Will get EKG. After screening for acute medical pathology anticipate admission for further work-up and longer term planning. 06/07/21 17:33 Patient's labs are unremarkable. I did discuss the case with the hospitalist who agrees with plan for admission for further work-up and longer-term planning. Patient is also very agreeable to stay. He is willing to do either subacute rehab or potentially home health after building up his strength. Departure - Departure Time of Disposition: 17:34 Disposition: Admitted As Inpatient 64 Condition: Good Clinical Impression: Ambulatory dysfunction - Discharge Information Referrals: PCP,None [Primary Care Provider] - Forms: ED Department Discharge Sepsis Event Note (ED) - Evaluation Sepsis Screening Result: No Definite Risk - Focused Exam Vital Signs: Vital Signs Temp Pulse Resp BP Pulse Ox 06/07/21 14:59 96.7 F L 84 18 103/73 95 - My Orders Last 24 Hours: My Active Orders 06/07/21 15:27 EKG Documentation Completion [RC] STAT Sodium Chloride 0.9% [Saline Flush] 10 ml FLUSH ASDIRECTED PRN Sodium Chloride 0.9% [Saline Flush] 2.5 ml FLUSH ASDIRECTED PRN Saline Lock Insert [OM.PC] Stat 06/07/21 15:32 CORONAVIRUS COVID-19 LINDY [MOLEC] Stat 06/07/21 16:05 LACTATE SEPSIS W/ REFLEX [CHEM] Stat 06/07/21 17:33 Patient Status [ADT] Routine - Assessment/Plan Last 24 Hours: My Active Orders 06/07/21 15:27 EKG Documentation Completion [RC] STAT Sodium Chloride 0.9% [Saline Flush] 10 ml FLUSH ASDIRECTED PRN Sodium Chloride 0.9% [Saline Flush] 2.5 ml FLUSH ASDIRECTED PRN Saline Lock Insert [OM.PC] Stat 06/07/21 15:32 CORONAVIRUS COVID-19 LINDY [MOLEC] Stat 06/07/21 16:05 LACTATE SEPSIS W/ REFLEX [CHEM] Stat 06/07/21 17:33 Patient Status [ADT] Routine
--- NOTE | 2021-06-07 16:07 | CT ---
INDICATION: Generalized weakness TECHNIQUE: CT head without contrast. COMPARISON: 06/01/2021 FINDINGS: CSF spaces: Within normal limits for age. Brain parenchyma: The hooks-white differentiation is normal. No sign of mass, hemorrhage, or midline shift. Periventricular white matter changes consistent chronic microvascular disease. Mild diffuse volume loss. Skull base and calvarium: The visualized paranasal sinuses and mastoid air cells demonstrate no acute or significant findings. The visualized orbits are grossly unremarkable. No skull fractures. Right high parietal scalp hematoma. IMPRESSION: High right parietal scalp hematoma with no associated fractures or evidence of acute intracranial trauma. Ventricular white matter changes consistent chronic microvascular disease. Mild diffuse fine nose. Please note that all CT scans at this facility use dose modulation, iterative reconstruction, and/or weight-based dosing when appropriate to reduce radiation dose to as low as reasonably achievable. Dictated by Ho Garcia MD @ 06/07/2021 4:04:[address] Ho Garcia @ Jun 07 2021 4:04PM
[2021-06-07 16:49] LABS: BLOOD UREA NITROGEN,BUN 18 mg/dL (7.0-18.0); CARBON DIOXIDE,CO2 31.6 mmol/L (21.0-32.0); CHLORIDE,CL 100 mmol/L (98-107); GLUCOSE RANDOM 98 mg/dL (74-106); LIPASE 158 U/L (73-393); SODIUM,NA 135 mmol/L (136-148)
[2021-06-07] MEDS ORDERED: Ondansetron 4 MG/2 ML SDV IVPUSH PRN (18:30)
[2021-06-07] MEDS ORDERED: Acetaminophen 325 MG Tab PO PRN (18:30)
[2021-06-07] MEDS ORDERED: Albuterol/Ipratropium 3.0-0.5 MG/3 ML Neb Soln NEB PRN (18:30)
--- NOTE | 2021-06-07 18:36 | PCM.HP.2 ---
H&P History of Present Illness - General Date of Service: 06/07/21 Admit Problem/Dx: Admission Diagnosis/Problem Admission Diagnosis/Problem Ambulatory dysfunction History Limitations: Reports: No Limitations - History of Present Illness Initial Comments - Free Text/Narative: 71-year-old male past medical history alcohol abuse presents for worsening generalized weakness. Patient has been seen in ER a few times in last week for frequent falls and generalized weakness. Patient denies having any falls today but got so weak that he had to sit down and was unable to get up again. Patient notes that he lives in a small house without air conditioning and that his son's mother had been helping to take care of him but feels like she no longer can help him with that. Patient states he was offered admission to the hospital the last time he was here but he declined. He feels like at this point he might benefit from subacute rehab therapy or at the least home health services as he feels unable to take care of himself at home. Patient states that he has suffered several pound weight loss unintentionally over the last couple of years due to lack of appetite. He denies any chest pain or difficulty breathing. No recent fevers or illnesses. Work up in ER including cbc bmp, and imagining was unremarkable for any acute findings. Patient was admitted for further management. Denied seeing any doctor in recent past. No recent colonoscopy. - Related Data Allergies/Adverse Reactions: Allergies Allergy/AdvReac Type Severity Reaction Status Date / Time No Known Allergies Allergy Verified 06/07/21 18:48 Home Medications: Home Meds Multivitamin 1 tab PO DAILY 05/31/21 [History] Magnesium Oxide/Magnesium [Magnesium] 300 mg PO BID #60 capsule 06/01/21 [Rx] Aspirin 81 mg PO DAILY 06/07/21 [History] Cyanocobalamin/Folic AC/Vit B6 [B Complex-Folic Acid] 1 tab PO DAILY 06/07/21 [History] Past Medical History Other HEENT History: glasses Other Cardiovascular History: previously on metoprolol for blood pressure, denies taking medication at this time Other Musculoskeletal History: Fractured neck in 2001, refused surgery Other Psychiatric History: ETOH abuse - Infectious Disease History Infectious Disease History: Reports: None - Past Surgical History Other Neurological Surgeries/Procedures: hx neck fracture Social & Family History - Family History Family Medical History: No Pertinent Family History - Tobacco Use Tobacco Use Status *Q: Never Tobacco User - Recreational Drug Use Recreational Drug Use: No H&P Review of Systems - Review of Systems: Review Of Systems: See Below General: Reports: Chills, Weakness, Fatigue, Night Sweats, Decreased Appetite, Weight Loss. Denies: Fever, Malaise, Diaphoresis Pulmonary: Denies: Wheezing, Pleuritic Chest Pain Cardiovascular: Denies: Chest Pain, Palpitations, Dyspnea on Exertion Gastrointestinal: Reports: Anorexia. Denies: Abdominal Pain, Black Stool, Bloody Stool, Constipation, Diarrhea, Hematemesis Genitourinary: Reports: Dysuria, Frequency. Denies: Burning Musculoskeletal: Reports: Shoulder Pain. Denies: Neck Pain, Arm Pain Skin: Denies: Cyanosis, Jaundice, Mottled Psychiatric: Denies: Confusion, Depression, Mood Lability Neurological: Reports: Dizziness, Difficulty Walking, Weakness. Denies: Confusion, Headache, Numbness Hematologic/Lymphatic: Denies: Anemia, Easy Bleeding, Easy Bruising Exam - Exam Exam: See Below - Vital Signs Vital Signs: Last Vital Signs Temp 36.3 C 06/07/21 18: Pulse 81 06/07/21 18:22 Resp 20 06/07/21 18:22 BP 101/74 06/07/21 18: Pulse Ox 96 06/07/21 18:22 Weight: 52.163 kg - Exam General: Alert, Oriented Neck: Supple Lungs: Clear to Auscultation, Normal Respiratory Effort Cardiovascular: Regular Rate, Regular Rhythm, Normal S1, Normal S2 Extremities: Normal Inspection, Normal Range of Motion Skin: Warm, Dry Neurological: Cranial Nerves Intact, Reflexes Equal Bilateral, Strength Equal Bilateral - Patient Data Lab Results Last 24 hrs: Laboratory Results - last 24 hr 06/07/21 06/07/21 06/07/21 Range/Units 15:41 16:05 16:05 WBC (4.0-11.0) K/uL RBC (4.50-5.90) M/uL Hgb (13.0-17.0) g/dL Hct (38.0-50.0) % MCV (80.0-98.0) fL MCH (27.0-32.0) pg MCHC (31.0-37.0) g/dL RDW Std Deviation (28.0-62.0) fl RDW Coeff of Brian (11.0-15.0) % Plt Count (150-400) K/uL MPV (7.40-12.00) fL Neut % (Auto) (48.0-80.0) % Lymph % (Auto) (16.0-40.0) % [place] % (Auto) (0.0-15.0) % Eos % (Auto) (0.0-7.0) % Baso % (Auto) (0.0-1.5) % Neut # (Auto) (1.4-5.7) K/uL Lymph # (Auto) (0.6-2.4) K/uL [place] # (Auto) (0.0-0.8) K/uL Eos # (Auto) (0.0-0.7) K/uL Baso # (Auto) (0.0-0.1) K/uL Nucleated RBC % /100WBC Nucleated RBCs # K/uL Sodium 135 L (136-148) mmol/L Potassium 5.0 (3.5-5.1) mmol/L Chloride 100 (98-107) mmol/L Carbon Dioxide 31.6 (21.0-32.0) mmol/L BUN 18 (7.0-18.0) mg/dL Creatinine 0.9 (0.8-1.3) mg/dL Est Cr Clr Drug Dosing 53.93 mL/min Estimated GFR (MDRD) > 60.0 ml/min Glucose 98 (74-106) mg/dL Lactic Acid 1.5 (0.4-2.0) mmol/L Calcium 9.3 (8.5-10.1) mg/dL Magnesium 2.0 (1.8-2.4) mg/dL Total Bilirubin 1.0 (0.2-1.0) mg/dL AST 40 H (15-37) IU/L ALT 48 (14-63) IU/L Alkaline Phosphatase 78 (46-116) U/L Troponin I < 0.050 (0.000-0.056) ng/mL Total Protein 7.1 (6.4-8.2) g/dL Albumin 3.8 (3.4-5.0) g/dL Globulin 3.3 (2.6-4.0) g/dL Albumin/Globulin Ratio 1.2 (0.9-1.6) Lipase 158 (73-393) U/L Free T4 1.21 (0.76-1.46) ng/dL TSH, Ultra Sensitive 5.30 H (0.36-3.74) uIU/mL Urine Color YELLOW Urine Appearance CLEAR Urine pH 6.0 (5.0-8.0) Ur Specific [place] 1.020 (1.001-1.035) Urine Protein NEGATIVE (NEGATIVE) mg/dL Urine Glucose (UA) NEGATIVE (NEGATIVE) mg/dL Urine Ketones NEGATIVE (NEGATIVE) mg/dL Urine Occult Blood NEGATIVE (NEGATIVE) Urine Nitrite NEGATIVE (NEGATIVE) Urine Bilirubin NEGATIVE (NEGATIVE) Urine Urobilinogen 0.2 (<2.0) EU/dL Ur Leukocyte Esterase NEGATIVE (NEGATIVE) 06/07/21 Range/Units 16:05 WBC 6.99 (4.0-11.0) K/uL RBC 4.72 (4.50-5.90) M/uL Hgb 14.9 (13.0-17.0) g/dL Hct 43.8 (38.0-50.0) % MCV 92.8 (80.0-98.0) fL MCH 31.6 (27.0-32.0) pg MCHC 34.0 (31.0-37.0) g/dL RDW Std Deviation 49.6 (28.0-62.0) fl RDW Coeff of Brian 15 (11.0-15.0) % Plt Count 170 (150-400) K/uL MPV 11.90 (7.40-12.00) fL Neut % (Auto) 60.7 (48.0-80.0) % Lymph % (Auto) 25.3 (16.0-40.0) % [place] % (Auto) 11.0 (0.0-15.0) % Eos % (Auto) 2.4 (0.0-7.0) % Baso % (Auto) 0.6 (0.0-1.5) % Neut # (Auto) 4.2 (1.4-5.7) K/uL Lymph # (Auto) 1.8 (0.6-2.4) K/uL [place] # (Auto) 0.8 (0.0-0.8) K/uL Eos # (Auto) 0.2 (0.0-0.7) K/uL Baso # (Auto) 0.0 (0.0-0.1) K/uL Nucleated RBC % 0.0 /100WBC Nucleated RBCs # 0 K/uL Sodium (136-148) mmol/L Potassium (3.5-5.1) mmol/L Chloride (98-107) mmol/L Carbon Dioxide (21.0-32.0) mmol/L BUN (7.0-18.0) mg/dL Creatinine (0.8-1.3) mg/dL Est Cr Clr Drug Dosing mL/min Estimated GFR (MDRD) ml/min Glucose (74-106) mg/dL Lactic Acid (0.4-2.0) mmol/L Calcium (8.5-10.1) mg/dL Magnesium (1.8-2.4) mg/dL Total Bilirubin (0.2-1.0) mg/dL AST (15-37) IU/L ALT (14-63) IU/L Alkaline Phosphatase (46-116) U/L Troponin I (0.000-0.056) ng/mL Total Protein (6.4-8.2) g/dL Albumin (3.4-5.0) g/dL Globulin (2.6-4.0) g/dL Albumin/Globulin Ratio (0.9-1.6) Lipase (73-393) U/L Free T4 (0.76-1.46) ng/dL TSH, Ultra Sensitive (0.36-3.74) uIU/mL Urine Color Urine Appearance Urine pH (5.0-8.0) Ur Specific [place] (1.001-1.035) Urine Protein (NEGATIVE) mg/dL Urine Glucose (UA) (NEGATIVE) mg/dL Urine Ketones (NEGATIVE) mg/dL Urine Occult Blood (NEGATIVE) Urine Nitrite (NEGATIVE) Urine Bilirubin (NEGATIVE) Urine Urobilinogen (<2.0) EU/dL Ur Leukocyte Esterase (NEGATIVE) Result Diagrams: 06/07/21 16:05 06/07/21 16:05 Sepsis Event Note - Evaluation Sepsis Screening Result: No Definite Risk - Focused Exam Vital Signs: Vital Signs Temp Pulse Resp BP Pulse Ox 06/07/21 18:22 36.3 C 81 20 101/74 96 06/07/21 17:03 79 97/68 94 L 07/22/21 16:04 81 109/72 96 06/07/21 14:59 35.9 C L 84 18 103/73 95 - Problem List (1) Ambulatory dysfunction SNOMED Code(s): 855561281 ICD Code: R26.2 - DIFFICULTY IN WALKING, NOT ELSEWHERE CLASSIFIED Status: Acute Current Visit: Yes (2) Alcoholism SNOMED Code(s): 8384552 ICD Code: F10.20 - ALCOHOL DEPENDENCE, UNCOMPLICATED Status: Acute Current Visit: No (3) Ataxia SNOMED Code(s): 92156050 ICD Code: R27.0 - ATAXIA, UNSPECIFIED Status: Acute Current Visit: No (4) Generalized muscle weakness SNOMED Code(s): 17394853, 64769781 ICD Code: M62.81 - MUSCLE WEAKNESS (GENERALIZED) Status: Acute Current Visit: No (5) Unsteady gait SNOMED Code(s): 13574657 ICD Code: R26.81 - UNSTEADINESS ON FEET Status: Acute Current Visit: No (6) Unintentional weight loss SNOMED Code(s): 784216060 ICD Code: R63.4 - ABNORMAL WEIGHT LOSS Status: Acute Current Visit: Yes Problem List Initiated/Reviewed/Updated: Yes Orders Last 24hrs: Active Orders 24 hr Category Date Time Status Patient Status [ADT] Routine ADT 06/07/21 17:33 Active Ambulate [RC] ASDIRECTED Care 06/07/21 18:30 Ordered Antiembolic Devices [RC] PER UNIT ROUTINE Care 06/07/21 18:33 Ordered EKG Documentation Completion [RC] STAT Care 06/07/21 15:27 Active Oxygen Therapy [RC] PRN Care 06/07/21 18:30 Ordered Pulse Oximetry [RC] PRN Care 06/07/21 18:30 Ordered RT Aerosol Therapy [RC] ASDIRECTED Care 06/07/21 18:35 Ordered VTE/DVT Education [RC] PER UNIT ROUTINE Care 06/07/21 18:30 Ordered Vital Signs [RC] Q4H Care 06/07/21 18:30 Ordered Regular Diet [DIET] Diet 06/07/21 Dinner Ordered CORONAVIRUS COVID-19 LINDY [MOLEC] Stat Lab 06/07/21 15:32 Ordered Acetaminophen [TylenoL] Med 06/07/21 18:30 Ordered 650 mg PO Q4H PRN Albuterol/Ipratropium [DuoNeb 3.0-0.5 MG/3 ML] Med 06/07/21 18:30 Ordered 3 ml NEB Q4HRRT PRN Enoxaparin [Lovenox] Med 06/07/21 18:30 Ordered 40 mg SUBCUT Q24H Lactated Ringers @ 125 MLS/HR(1,000ml) Med 06/07/21 18:45 Ordered Lactated Ringers [Ringers, Lactated] 1,000 ml IV ASDIRECTED Ondansetron [Zofran] Med 06/07/21 18:30 Ordered 4 mg IVPUSH Q4H PRN Sodium Chloride 0.9% [Saline Flush] Med 06/07/21 15:27 Active 10 ml FLUSH ASDIRECTED PRN Sodium Chloride 0.9% [Saline Flush] Med 06/07/21 15:27 Active 2.5 ml FLUSH ASDIRECTED PRN Saline Lock Insert [OM.PC] Stat Oth 06/07/21 15:27 Ordered Sequential Compression Device [OM.PC] Per Unit Routine Oth 06/07/21 18:30 Ordered Medication Orders Acetaminophen (Acetaminophen 325 Mg Tab) 650 mg PO Q4H PRN PRN Reason: Pain (Mild 1-3)/fever Albuterol/Ipratropium (Albuterol/Ipratropium 3.0-0.5 Mg/3 Ml Neb Soln) 3 ml NEB Q4HRRT PRN PRN Reason: Shortness Of Breath/wheezing Enoxaparin Sodium (Enoxaparin 40 Mg/0.4 Ml Syringe) 40 mg SUBCUT Q24H RUTHY Lactated Ringer's (Ringers, Lactated) 1,000 mls @ 125 mls/hr IV ASDIRECTED RUTHY Ondansetron HCl (Ondansetron 4 Mg/2 Ml Sdv) 4 mg IVPUSH Q4H PRN PRN Reason: Nausea/Vomiting Sodium Chloride (Sodium Chloride 0.9% 10 Ml Syringe) 10 ml FLUSH ASDIRECTED PRN PRN Reason: Keep Vein Open Last Admin: 06/07/21 16:56 Dose: 10 ml Documented by: GROTALI Sodium Chloride (Sodium Chloride 0.9% 2.5 Ml Syringe) 2.5 ml FLUSH ASDIRECTED PRN PRN Reason: Keep Vein Open Last Admin: 06/07/21 16:57 Dose: 2.5 ml Documented by: ANNE-MARIE Assessment/Plan Comment:: 71 y/o M admitted for generalized weakness, frequent falls, ambulatory dysfunction No eating as much, weight loss, BMI 18.3 start iv fluids, start supplements regular diet Duonebs as needed iv thiamine check b12, tsh Supportive care Pt consult for ambulation and strength Patient interested in rehab placement needs outpatient colonoscopy
[2021-06-07] MEDS: Lactated Ringers 1,000 ML IV SCH (18:55)
[2021-06-07] MEDS: Enoxaparin 40 MG/0.4 ML Syringe SUBCUT SCH (20:00)
[2021-06-07] MEDS: Thiamine 100 MG in Sodium Chloride 0.9% 100 ML IV SCH (20:00)
--- NOTE | 2021-06-07 23:58 | CR ---
For Patients: As a result of the Cures Act, medical imaging exams and procedure reports are released immediately into your electronic medical record. You may view this report before your referring provider. If you have questions, please contact your health care provider. INDICATION: Shortness of breath TECHNIQUE: Chest radiograph 1 view on 2 films COMPARISON: None FINDINGS: Mediastinum: The mediastinum is normal in appearance. The heart silhouette is normal in size and morphology. Moderate elevation of the left hemidiaphragm is present with gas distention of multiple bowel loops noted. Lung: Mild compressive atelectasis in the medial left lung base is seen. No sign of pleural effusion seen. No pneumothorax is identified. Bone and Soft tissue: Unremarkable for age. IMPRESSION: 1. Mild compressive atelectasis in the medial left lung base is seen. Dictated by Hardy Boggs MD @ 06/07/2021 11:56:38 PM Dictated by: Hardy Boggs MD @ 06/07/2021 23:56:50 (Electronically Signed)
--- NOTE | 2021-06-08 08:05 | MR ---
INDICATION: Ataxia and dizziness. TECHNIQUE: Brain MRI without contrast. The following sequences were obtained: Sagittal T1 weighted sequence. DWI and ADC mapping sequences. Axial FLAIR and SANTO T2 weighted sequences. Axial SWI sequence. COMPARISON: Head CT from 06/07/2021. FINDINGS: No evidence of acute ischemia. No evidence of acute or chronic intracranial blood products. [id number] generalized parenchymal volume loss. Patchy FLAIR hyperintensities within the deep/periventricular supratentorial white matter, typical for chronic microvascular ischemic changes. No mass effect or herniation. No hydrocephalus or extra-axial collections. The pituitary gland, parasellar structures and optic chiasm are normal. Posterior fossa is normal. All the major intracranial vascular structures demonstrate normal flow-related signal. The orbital contents are normal. No calvarial or skull base marrow signal abnormality. No obstructive sinus disease. No extracranial soft tissue findings. IMPRESSION: 1. No acute infarction, intracranial hemorrhage or other acute intracranial pathology. 2. Mild to moderate generalized parenchymal volume loss. Mild burden of chronic microvascular ischemic changes within the supratentorial white matter. Dictated by Se Farias MD @ 06/08/2021 8:04:[address] Se Farias @ Jun 08 2021 8:04AM
--- NOTE | 2021-06-08 09:03 | CT ---
INDICATION: Dysphagia TECHNIQUE: CT of the neck before and after administration of 75 cc Isovue 370 IV iodinated contrast agent. Coronal and sagittal reconstructions are included. COMPARISON: CTA neck 06/01/2021. FINDINGS: There is no soft tissue mass or other lesion within the soft tissues of the suprahyoid or infrahyoid neck. No lymphadenopathy. The oral cavity, nasopharyngeal, oropharyngeal and hypopharyngeal mucosal spaces are normal. Periapical lucency adjacent to the roots of the remnant right maxillary 1st molar tooth. Large cavity in this tooth with erosion of the crown. The supraglottic, glottic and infraglottic larynx are normal. The parotid glands, submandibular and sublingual glands are normal in appearance. The thyroid gland is normal in appearance. Incidental tonsilliths in the palatine tonsils. The vascular structures opacify normally with contrast material. Very large anterior osteophytes noted at C3-4 and C4-5 levels and to lesser extent at C5-6 C6-7 C7-T1 and T1-2 levels. This results in mass effect on the hypopharynx and oropharynx. There is degenerative autofusion of the C2-3 vertebral bodies, C4-5, C5-6 and C6-7 vertebral bodies. Anterolisthesis at C7-T1 and T1-2. Schmorl`s node in the T1 superior endplate. No lytic or blastic osseous lesions. C1-2: No spinal canal stenosis. C2-3: No spinal canal stenosis or neural from narrowing. Moderate right facet arthropathy. C3-4: Disc osteophyte complex results in mild spinal canal narrowing. Severe left neural foraminal narrowing due to uncovertebral spurring and facet hypertrophy. Mild right neural foraminal narrowing due to same. C4-5: Disc osteophyte complex results in mild spinal canal narrowing. Mild bilateral neural foramina due to uncovertebral spurring and facet hypertrophy. C5-6: Disc osteophyte complex results in mild spinal canal narrowing. Moderate bilateral neural foramina narrowing due to uncovertebral spurring and facet arthropathy. C6-7: Disc osteophyte complex results in mild spinal canal narrowing. Mild bilateral neural foramina narrowing due to uncovertebral spurring. C7-T1: Grade 1 anterolisthesis. No spinal canal stenosis. Moderate facet arthrosis. T1-2: Grade 1 anterolisthesis. No spinal canal stenosis or neural foramina narrowing. Visualized paranasal sinuses and mastoid air cells are clear. Visualized orbital and intracranial contents are normal. Moderate opacification of the bilateral external ear canals likely due to cerumen. Supraclavicular regions, mediastinum and soft tissues of the imaged chest wall are normal. Visualized portions of the upper lungs are clear. IMPRESSION: 1. Multilevel advanced cervical spondylosis with large anterior osteophytic spurs at C3-4, C4-5, C5-6, C6-7 C7-T1 and T1-2 which results in mass effect on the hypopharynx and may result in dysphagia. There is degenerative autofusion of the C2-3 vertebral bodies, C4-5, C5-6 and C6-7 vertebral bodies. 2. No suspicious enhancement or soft tissue mass in the neck to account for the patient`s symptoms. 3. No evidence of acute inflammation. 4. No cervical lymphadenopathy. 5. Moderate opacification of the bilateral external ear canals likely due to cerumen. Please note that all CT scans at this facility use dose modulation, iterative reconstruction, and/or weight-based dosing when appropriate to reduce radiation dose to as low as reasonably achievable. Dictated by Ho Riley MD @ 06/08/2021 9:02:[address] Ho Riley @ Jun 08 2021 9:02AM
[2021-06-08] MEDS: THIAMINE IV SCH (09:59)
[2021-06-08] MEDS: Thiamine 100 MG in Sodium Chloride 0.9% 100 ML IV SCH (10:32)
--- NOTE | 2021-06-08 13:35 | PCM.PN ---
- General Info Date of Service: 06/08/21 Admission Dx/Problem (Free Text): Admission Diagnosis/Problem Admission Diagnosis/Problem Ambulatory dysfunction Subjective Update: seen at bedside, no acite distress, c/o dysphagia eating omelet Functional Status: Reports: Ambulating, Urinating. Denies: Tolerating Diet - Review of Systems General: Reports: Weakness, Fatigue. Denies: Fever, Malaise Pulmonary: Denies: Shortness of Breath, Pleuritic Chest Pain Cardiovascular: Denies: Chest Pain, Palpitations Gastrointestinal: Reports: Difficulty Swallowing. Denies: Abdominal Pain, Constipation, Decreased Appetite Genitourinary: Denies: Dysuria, Frequency, Burning Musculoskeletal: Denies: Neck Pain, Shoulder Pain, Arm Pain Skin: Denies: Cyanosis, Jaundice, Mottled - Patient Data Vitals - Most Recent: Last Vital Signs Temp 36.4 C 06/08/21 12:00 Pulse 73 06/08/21 12:00 Resp 16 06/08/21 12:00 BP 145/81 H 06/08/21 12:00 Pulse Ox 98 06/08/21 12:00 Weight - Most Recent: 66.281 kg I&O - Last 24 Hours: Intake & Output 06/07/21 06/08/21 06/08/21 22:59 06:59 14:59 Intake Total 250 Output Total 650 Balance -400 Lab Results Last 24 Hours: Laboratory Results - last 24 hr 06/07/21 06/07/21 06/07/21 Range/Units 15:41 16:05 16:05 WBC (4.0-11.0) K/uL RBC (4.50-5.90) M/uL Hgb (13.0-17.0) g/dL Hct (38.0-50.0) % MCV (80.0-98.0) fL MCH (27.0-32.0) pg MCHC (31.0-37.0) g/dL RDW Std Deviation (28.0-62.0) fl RDW Coeff of Brian (11.0-15.0) % Plt Count (150-400) K/uL MPV (7.40-12.00) fL Neut % (Auto) (48.0-80.0) % Lymph % (Auto) (16.0-40.0) % [place] % (Auto) (0.0-15.0) % Eos % (Auto) (0.0-7.0) % Baso % (Auto) (0.0-1.5) % Neut # (Auto) (1.4-5.7) K/uL Lymph # (Auto) (0.6-2.4) K/uL [place] # (Auto) (0.0-0.8) K/uL Eos # (Auto) (0.0-0.7) K/uL Baso # (Auto) (0.0-0.1) K/uL Nucleated RBC % /100WBC Nucleated RBCs # K/uL Sodium 135 L (136-148) mmol/L Potassium 5.0 (3.5-5.1) mmol/L Chloride 100 (98-107) mmol/L Carbon Dioxide 31.6 (21.0-32.0) mmol/L BUN 18 (7.0-18.0) mg/dL Creatinine 0.9 (0.8-1.3) mg/dL Est Cr Clr Drug Dosing 53.93 mL/min Estimated GFR (MDRD) > 60.0 ml/min Glucose 98 (74-106) mg/dL Lactic Acid 1.5 (0.4-2.0) mmol/L Calcium 9.3 (8.5-10.1) mg/dL Magnesium 2.0 (1.8-2.4) mg/dL Total Bilirubin 1.0 (0.2-1.0) mg/dL AST 40 H (15-37) IU/L ALT 48 (14-63) IU/L Alkaline Phosphatase 78 (46-116) U/L Troponin I < 0.050 (0.000-0.056) ng/mL Total Protein 7.1 (6.4-8.2) g/dL Albumin 3.8 (3.4-5.0) g/dL Globulin 3.3 (2.6-4.0) g/dL Albumin/Globulin Ratio 1.2 (0.9-1.6) Lipase 158 (73-393) U/L Vitamin B12 (193-986) pg/mL Free T4 1.21 (0.76-1.46) ng/dL TSH, Ultra Sensitive 5.30 H (0.36-3.74) uIU/mL Urine Color YELLOW Urine Appearance CLEAR Urine pH 6.0 (5.0-8.0) Ur Specific [place] 1.020 (1.001-1.035) Urine Protein NEGATIVE (NEGATIVE) mg/dL Urine Glucose (UA) NEGATIVE (NEGATIVE) mg/dL Urine Ketones NEGATIVE (NEGATIVE) mg/dL Urine Occult Blood NEGATIVE (NEGATIVE) Urine Nitrite NEGATIVE (NEGATIVE) Urine Bilirubin NEGATIVE (NEGATIVE) Urine Urobilinogen 0.2 (<2.0) EU/dL Ur Leukocyte Esterase NEGATIVE (NEGATIVE) 06/07/21 06/07/21 Range/Units 16:05 16:05 WBC 6.99 (4.0-11.0) K/uL RBC 4.72 (4.50-5.90) M/uL Hgb 14.9 (13.0-17.0) g/dL Hct 43.8 (38.0-50.0) % MCV 92.8 (80.0-98.0) fL MCH 31.6 (27.0-32.0) pg MCHC 34.0 (31.0-37.0) g/dL RDW Std Deviation 49.6 (28.0-62.0) fl RDW Coeff of Brian 15 (11.0-15.0) % Plt Count 170 (150-400) K/uL MPV 11.90 (7.40-12.00) fL Neut % (Auto) 60.7 (48.0-80.0) % Lymph % (Auto) 25.3 (16.0-40.0) % [place] % (Auto) 11.0 (0.0-15.0) % Eos % (Auto) 2.4 (0.0-7.0) % Baso % (Auto) 0.6 (0.0-1.5) % Neut # (Auto) 4.2 (1.4-5.7) K/uL Lymph # (Auto) 1.8 (0.6-2.4) K/uL [place] # (Auto) 0.8 (0.0-0.8) K/uL Eos # (Auto) 0.2 (0.0-0.7) K/uL Baso # (Auto) 0.0 (0.0-0.1) K/uL Nucleated RBC % 0.0 /100WBC Nucleated RBCs # 0 K/uL Sodium (136-148) mmol/L Potassium (3.5-5.1) mmol/L Chloride (98-107) mmol/L Carbon Dioxide (21.0-32.0) mmol/L BUN (7.0-18.0) mg/dL Creatinine (0.8-1.3) mg/dL Est Cr Clr Drug Dosing mL/min Estimated GFR (MDRD) ml/min Glucose (74-106) mg/dL Lactic Acid (0.4-2.0) mmol/L Calcium (8.5-10.1) mg/dL Magnesium (1.8-2.4) mg/dL Total Bilirubin (0.2-1.0) mg/dL AST (15-37) IU/L ALT (14-63) IU/L Alkaline Phosphatase (46-116) U/L Troponin I (0.000-0.056) ng/mL Total Protein (6.4-8.2) g/dL Albumin (3.4-5.0) g/dL Globulin (2.6-4.0) g/dL Albumin/Globulin Ratio (0.9-1.6) Lipase (73-393) U/L Vitamin B12 1656 H (193-986) pg/mL Free T4 (0.76-1.46) ng/dL TSH, Ultra Sensitive (0.36-3.74) uIU/mL Urine Color Urine Appearance Urine pH (5.0-8.0) Ur Specific [place] (1.001-1.035) Urine Protein (NEGATIVE) mg/dL Urine Glucose (UA) (NEGATIVE) mg/dL Urine Ketones (NEGATIVE) mg/dL Urine Occult Blood (NEGATIVE) Urine Nitrite (NEGATIVE) Urine Bilirubin (NEGATIVE) Urine Urobilinogen (<2.0) EU/dL Ur Leukocyte Esterase (NEGATIVE) Med Orders - Current: Current Medications Acetaminophen (Acetaminophen 325 Mg Tab) 650 mg PO Q4H PRN PRN Reason: Pain (Mild 1-3)/fever Albuterol/Ipratropium (Albuterol/Ipratropium 3.0-0.5 Mg/3 Ml Neb Soln) 3 ml NEB Q4HRRT PRN PRN Reason: Shortness Of Breath/wheezing Enoxaparin Sodium (Enoxaparin 40 Mg/0.4 Ml Syringe) 40 mg SUBCUT Q24H [facility] Last Admin: 06/07/21 20:00 Dose: 40 mg Documented by: Lactated Ringer's (Ringers, Lactated) 1,000 mls @ 125 mls/hr IV ASDIRECTED [facility] Last Admin: 06/07/21 18:55 Dose: 125 mls/hr Documented by: Thiamine HCl 100 mg/ Premix 1 mls @ 30 mls/hr IV DAILY [facility] Last Admin: 06/08/21 09:59 Dose: 30 mls/hr Documented by: Mirtazapine (Mirtazapine 15 Mg Tab) 15 mg PO BEDTIME [facility] Ondansetron HCl (Ondansetron 4 Mg/2 Ml Sdv) 4 mg IVPUSH Q4H PRN PRN Reason: Nausea/Vomiting Sodium Chloride (Sodium Chloride 0.9% 10 Ml Syringe) 10 ml FLUSH ASDIRECTED PRN PRN Reason: Keep Vein Open Last Admin: 06/07/21 16:56 Dose: 10 ml Documented by: Sodium Chloride (Sodium Chloride 0.9% 2.5 Ml Syringe) 2.5 ml FLUSH ASDIRECTED PRN PRN Reason: Keep Vein Open Last Admin: 06/07/21 16:57 Dose: 2.5 ml Documented by: Discontinued Medications Sodium Chloride (Normal Saline) 500 mls @ 999 mls/hr IV .Bolus ONE Stop: 06/07/21 15:57 Last Admin: 06/07/21 16:56 Dose: 999 mls/hr Documented by: Thiamine HCl 100 mg/ Sodium (Chloride) 101 mls @ 202 mls/hr IV DAILY [facility] Last Admin: 06/08/21 10:32 Dose: Not Given Documented by: - Exam General: Alert, Oriented Lungs: Clear to Auscultation Cardiovascular: Regular Rate, Regular Rhythm GI/Abdominal Exam: Normal Bowel Sounds, Soft, Non-Tender Extremities: Normal Inspection, Normal Range of Motion - Patient Data Lab Results Last 24 hrs: Laboratory Results - last 24 hr 06/07/21 06/07/21 06/07/21 Range/Units 15:41 16:05 16:05 WBC (4.0-11.0) K/uL RBC (4.50-5.90) M/uL Hgb (13.0-17.0) g/dL Hct (38.0-50.0) % MCV (80.0-98.0) fL MCH (27.0-32.0) pg MCHC (31.0-37.0) g/dL RDW Std Deviation (28.0-62.0) fl RDW Coeff of Brian (11.0-15.0) % Plt Count (150-400) K/uL MPV (7.40-12.00) fL Neut % (Auto) (48.0-80.0) % Lymph % (Auto) (16.0-40.0) % [place] % (Auto) (0.0-15.0) % Eos % (Auto) (0.0-7.0) % Baso % (Auto) (0.0-1.5) % Neut # (Auto) (1.4-5.7) K/uL Lymph # (Auto) (0.6-2.4) K/uL [place] # (Auto) (0.0-0.8) K/uL Eos # (Auto) (0.0-0.7) K/uL Baso # (Auto) (0.0-0.1) K/uL Nucleated RBC % /100WBC Nucleated RBCs # K/uL Sodium 135 L (136-148) mmol/L Potassium 5.0 (3.5-5.1) mmol/L Chloride 100 (98-107) mmol/L Carbon Dioxide 31.6 (21.0-32.0) mmol/L BUN 18 (7.0-18.0) mg/dL Creatinine 0.9 (0.8-1.3) mg/dL Est Cr Clr Drug Dosing 53.93 mL/min Estimated GFR (MDRD) > 60.0 ml/min Glucose 98 (74-106) mg/dL Lactic Acid 1.5 (0.4-2.0) mmol/L Calcium 9.3 (8.5-10.1) mg/dL Magnesium 2.0 (1.8-2.4) mg/dL Total Bilirubin 1.0 (0.2-1.0) mg/dL AST 40 H (15-37) IU/L ALT 48 (14-63) IU/L Alkaline Phosphatase 78 (46-116) U/L Troponin I < 0.050 (0.000-0.056) ng/mL Total Protein 7.1 (6.4-8.2) g/dL Albumin 3.8 (3.4-5.0) g/dL Globulin 3.3 (2.6-4.0) g/dL Albumin/Globulin Ratio 1.2 (0.9-1.6) Lipase 158 (73-393) U/L Vitamin B12 (193-986) pg/mL Free T4 1.21 (0.76-1.46) ng/dL TSH, Ultra Sensitive 5.30 H (0.36-3.74) uIU/mL Urine Color YELLOW Urine Appearance CLEAR Urine pH 6.0 (5.0-8.0) Ur Specific [place] 1.020 (1.001-1.035) Urine Protein NEGATIVE (NEGATIVE) mg/dL Urine Glucose (UA) NEGATIVE (NEGATIVE) mg/dL Urine Ketones NEGATIVE (NEGATIVE) mg/dL Urine Occult Blood NEGATIVE (NEGATIVE) Urine Nitrite NEGATIVE (NEGATIVE) Urine Bilirubin NEGATIVE (NEGATIVE) Urine Urobilinogen 0.2 (<2.0) EU/dL Ur Leukocyte Esterase NEGATIVE (NEGATIVE) 06/07/21 06/07/21 Range/Units 16:05 16:05 WBC 6.99 (4.0-11.0) K/uL RBC 4.72 (4.50-5.90) M/uL Hgb 14.9 (13.0-17.0) g/dL Hct 43.8 (38.0-50.0) % MCV 92.8 (80.0-98.0) fL MCH 31.6 (27.0-32.0) pg MCHC 34.0 (31.0-37.0) g/dL RDW Std Deviation 49.6 (28.0-62.0) fl RDW Coeff of Brian 15 (11.0-15.0) % Plt Count 170 (150-400) K/uL MPV 11.90 (7.40-12.00) fL Neut % (Auto) 60.7 (48.0-80.0) % Lymph % (Auto) 25.3 (16.0-40.0) % [place] % (Auto) 11.0 (0.0-15.0) % Eos % (Auto) 2.4 (0.0-7.0) % Baso % (Auto) 0.6 (0.0-1.5) % Neut # (Auto) 4.2 (1.4-5.7) K/uL Lymph # (Auto) 1.8 (0.6-2.4) K/uL [place] # (Auto) 0.8 (0.0-0.8) K/uL Eos # (Auto) 0.2 (0.0-0.7) K/uL Baso # (Auto) 0.0 (0.0-0.1) K/uL Nucleated RBC % 0.0 /100WBC Nucleated RBCs # 0 K/uL Sodium (136-148) mmol/L Potassium (3.5-5.1) mmol/L Chloride (98-107) mmol/L Carbon Dioxide (21.0-32.0) mmol/L BUN (7.0-18.0) mg/dL Creatinine (0.8-1.3) mg/dL Est Cr Clr Drug Dosing mL/min Estimated GFR (MDRD) ml/min Glucose (74-106) mg/dL Lactic Acid (0.4-2.0) mmol/L Calcium (8.5-10.1) mg/dL Magnesium (1.8-2.4) mg/dL Total Bilirubin (0.2-1.0) mg/dL AST (15-37) IU/L ALT (14-63) IU/L Alkaline Phosphatase (46-116) U/L Troponin I (0.000-0.056) ng/mL Total Protein (6.4-8.2) g/dL Albumin (3.4-5.0) g/dL Globulin (2.6-4.0) g/dL Albumin/Globulin Ratio (0.9-1.6) Lipase (73-393) U/L Vitamin B12 1656 H (193-986) pg/mL Free T4 (0.76-1.46) ng/dL TSH, Ultra Sensitive (0.36-3.74) uIU/mL Urine Color Urine Appearance Urine pH (5.0-8.0) Ur Specific [place] (1.001-1.035) Urine Protein (NEGATIVE) mg/dL Urine Glucose (UA) (NEGATIVE) mg/dL Urine Ketones (NEGATIVE) mg/dL Urine Occult Blood (NEGATIVE) Urine Nitrite (NEGATIVE) Urine Bilirubin (NEGATIVE) Urine Urobilinogen (<2.0) EU/dL Ur Leukocyte Esterase (NEGATIVE) Result Diagrams: 06/07/21 16:05 06/07/21 16:05 Sepsis Event Note - Evaluation Sepsis Screening Result: No Definite Risk - Focused Exam Vital Signs: Vital Signs Temp Pulse Resp BP Pulse Ox 06/08/21 12:00 36.4 C 73 16 145/81 H 98 06/08/21 08:00 36.3 C 81 16 108/76 98 06/08/21 04:00 36.5 C 79 18 124/79 95 - Problem List & Annotations (1) Ambulatory dysfunction SNOMED Code(s): 345187500 Code(s): R26.2 - DIFFICULTY IN WALKING, NOT ELSEWHERE CLASSIFIED Status: Acute Current Visit: Yes (2) Alcoholism SNOMED Code(s): 0241023 Code(s): F10.20 - ALCOHOL DEPENDENCE, UNCOMPLICATED Status: Acute Current Visit: No (3) Ataxia SNOMED Code(s): 15812321 Code(s): R27.0 - ATAXIA, UNSPECIFIED Status: Acute Current Visit: No (4) Generalized muscle weakness SNOMED Code(s): 05217618, 15945711 Code(s): M62.81 - MUSCLE WEAKNESS (GENERALIZED) Status: Acute Current Visit: No (5) Unsteady gait SNOMED Code(s): 53574405 Code(s): R26.81 - UNSTEADINESS ON FEET Status: Acute Current Visit: No (6) Unintentional weight loss SNOMED Code(s): 232608617 Code(s): R63.4 - ABNORMAL WEIGHT LOSS Status: Acute Current Visit: Yes - Problem List Review Problem List Initiated/Reviewed/Updated: Yes - My Orders Last 24 Hours: My Active Orders 06/07/21 Dinner Regular Diet [DIET] 06/07/21 18:30 Ambulate [RC] ASDIRECTED Oxygen Therapy [RC] PRN Pulse Oximetry [RC] PRN VTE/DVT Education [RC] PER UNIT ROUTINE Vital Signs [RC] Q4H Acetaminophen [TylenoL] 650 mg PO Q4H PRN Albuterol/Ipratropium [DuoNeb 3.0-0.5 MG/3 ML] 3 ml NEB Q4HRRT PRN Ondansetron [Zofran] 4 mg IVPUSH Q4H PRN Sequential Compression Device [OM.PC] Per Unit Routine 06/07/21 18:33 Antiembolic Devices [RC] PER UNIT ROUTINE 06/07/21 18:35 RT Aerosol Therapy [RC] ASDIRECTED 06/07/21 18:37 Dietary Supplements [RC] BIDMEALS 06/07/21 18:39 PT Evaluation and Treatment [CONS] Routine 06/07/21 18:45 Lactated Ringers [Ringers, Lactated] 1,000 ml IV ASDIRECTED 06/07/21 20:00 Enoxaparin [Lovenox] 40 mg SUBCUT Q24H 06/08/21 09:30 Thiamine [Vitamin B-1] 100 mg Premix Bag 1 bag IV DAILY - Plan Plan:: 71 y/o M admitted for generalized weakness, frequent falls, ambulatory dysfunction No eating as much, weight loss, BMI 18.3 start iv fluids, start supplements liquis diet, patient not able to tolerate solids Duonebs as needed iv thiamine check b12, tsh Supportive care Pt consult for ambulation and strength, Speech therapy consult for swallow eval Patient interested in rehab placement needs outpatient colonoscopy
[2021-06-08] MEDS: Lactated Ringers 1,000 ML IV SCH (13:51)
[2021-06-08] MEDS ORDERED: Iopamidol 755 MG/ML 500 ML Multipack Bottle IVPUSH STA (14:58)
[2021-06-08] MEDS: Enoxaparin 40 MG/0.4 ML Syringe SUBCUT SCH (20:31)
[2021-06-08] MEDS: Mirtazapine 15 MG Tab PO SCH (22:01)
[2021-06-09] MEDS: THIAMINE IV SCH (08:33)
[2021-06-09] MEDS: Lactated Ringers 1,000 ML IV SCH ×2 (10:10→20:13)
--- NOTE | 2021-06-09 13:24 | PCM.PN ---
- General Info Date of Service: 06/09/21 Admission Dx/Problem (Free Text): Admission Diagnosis/Problem Admission Diagnosis/Problem Ambulatory dysfunction Subjective Update: seen at bedside, no acite distress, has been eating better Functional Status: Reports: Pain Controlled, Tolerating Diet, Ambulating, Urinating - Review of Systems General: Reports: Weakness, Malaise. Denies: Fever, Fatigue, Chills Pulmonary: Denies: Shortness of Breath, Pleuritic Chest Pain Cardiovascular: Denies: Chest Pain, Palpitations, Dyspnea on Exertion Gastrointestinal: Denies: Abdominal Pain, Constipation, Decreased Appetite Genitourinary: Denies: Dysuria, Frequency, Burning Musculoskeletal: Denies: Neck Pain, Shoulder Pain, Arm Pain Skin: Denies: Cyanosis, Jaundice, Mottled - Patient Data Vitals - Most Recent: Last Vital Signs Temp 36.6 C 06/09/21 12:48 Pulse 81 06/09/21 12:48 Resp 18 06/09/21 12:48 BP 109/71 06/09/21 12:48 Pulse Ox 95 06/09/21 12:48 Weight - Most Recent: 66.281 kg I&O - Last 24 Hours: Intake & Output 06/08/21 06/09/21 06/09/21 22:59 06:59 14:59 Intake Total 2825 1462 Output Total 1350 3000 Balance 1475 -1538 Med Orders - Current: Current Medications Acetaminophen (Acetaminophen 325 Mg Tab) 650 mg PO Q4H PRN PRN Reason: Pain (Mild 1-3)/fever Albuterol/Ipratropium (Albuterol/Ipratropium 3.0-0.5 Mg/3 Ml Neb Soln) 3 ml NEB Q4HRRT PRN PRN Reason: Shortness Of Breath/wheezing Enoxaparin Sodium (Enoxaparin 40 Mg/0.4 Ml Syringe) 40 mg SUBCUT Q24H [facility] Last Admin: 06/08/21 20:31 Dose: 40 mg Documented by: Lactated Ringer's (Ringers, Lactated) 1,000 mls @ 125 mls/hr IV ASDIRECTED [facility] Last Admin: 06/09/21 10:10 Dose: 125 mls/hr Documented by: Thiamine HCl 100 mg/ Premix 1 mls @ 30 mls/hr IV DAILY [facility] Last Admin: 06/09/21 08:33 Dose: 30 mls/hr Documented by: Mirtazapine (Mirtazapine 15 Mg Tab) 15 mg PO BEDTIME [facility] Last Admin: 06/08/21 22:01 Dose: 15 mg Documented by: Ondansetron HCl (Ondansetron 4 Mg/2 Ml Sdv) 4 mg IVPUSH Q4H PRN PRN Reason: Nausea/Vomiting Sodium Chloride (Sodium Chloride 0.9% 10 Ml Syringe) 10 ml FLUSH ASDIRECTED PRN PRN Reason: Keep Vein Open Last Admin: 06/07/21 16:56 Dose: 10 ml Documented by: Sodium Chloride (Sodium Chloride 0.9% 2.5 Ml Syringe) 2.5 ml FLUSH ASDIRECTED PRN PRN Reason: Keep Vein Open Last Admin: 06/07/21 16:57 Dose: 2.5 ml Documented by: Discontinued Medications Sodium Chloride (Normal Saline) 500 mls @ 999 mls/hr IV .Bolus ONE Stop: 06/07/21 15:57 Last Admin: 06/07/21 16:56 Dose: 999 mls/hr Documented by: Thiamine HCl 100 mg/ Sodium (Chloride) 101 mls @ 202 mls/hr IV DAILY [facility] Last Admin: 06/08/21 10:32 Dose: Not Given Documented by: Iopamidol (Iopamidol 755 Mg/Ml 500 Ml Multipack Bottle) 75 ml IVPUSH ONETIME STA Stop: 06/08/21 14:59 Last Admin: 06/08/21 14:58 Dose: 75 ml Documented by: - Exam General: Alert, Oriented Lungs: Clear to Auscultation Cardiovascular: Regular Rate, Regular Rhythm GI/Abdominal Exam: Normal Bowel Sounds, Soft, Non-Tender Extremities: Normal Inspection, Normal Range of Motion - Patient Data Result Diagrams: 06/07/21 16:05 06/07/21 16:05 Sepsis Event Note - Evaluation Sepsis Screening Result: No Definite Risk - Focused Exam Vital Signs: Vital Signs Temp Pulse Resp BP Pulse Ox 06/09/21 12:48 36.6 C 81 18 109/71 95 06/09/21 08:00 36.7 C 78 18 110/69 96 06/09/21 03:26 37.1 C 90 18 130/73 97 - Problem List & Annotations (1) Ambulatory dysfunction SNOMED Code(s): 502471094 Code(s): R26.2 - DIFFICULTY IN WALKING, NOT ELSEWHERE CLASSIFIED Status: Acute Current Visit: Yes (2) Alcoholism SNOMED Code(s): 4408944 Code(s): F10.20 - ALCOHOL DEPENDENCE, UNCOMPLICATED Status: Acute Current Visit: No (3) Ataxia SNOMED Code(s): 16328900 Code(s): R27.0 - ATAXIA, UNSPECIFIED Status: Acute Current Visit: No (4) Generalized muscle weakness SNOMED Code(s): 18192683, 89025438 Code(s): M62.81 - MUSCLE WEAKNESS (GENERALIZED) Status: Acute Current Visit: No (5) Unsteady gait SNOMED Code(s): 13435758 Code(s): R26.81 - UNSTEADINESS ON FEET Status: Acute Current Visit: No (6) Unintentional weight loss SNOMED Code(s): 634063864 Code(s): R63.4 - ABNORMAL WEIGHT LOSS Status: Acute Current Visit: Yes - Problem List Review Problem List Initiated/Reviewed/Updated: Yes - Plan Plan:: 71 y/o M admitted for generalized weakness, frequent falls, ambulatory dysfunction start iv fluids, start supplements Currently on regular diet Ensure supplements which diet Duonebs as needed iv thiamine Continue supportive care supportive care Pt consult for ambulation and strength, patient likely will need [facility] facility for rehab Speech therapy consult for swallow eval Patient interested in rehab placement needs outpatient colonoscopy
[2021-06-09] MEDS: Enoxaparin 40 MG/0.4 ML Syringe SUBCUT SCH (20:06)
[2021-06-09] MEDS: Mirtazapine 15 MG Tab PO SCH (21:59)
[2021-06-10] MEDS: Lactated Ringers 1,000 ML IV SCH (05:00)
[2021-06-10] MEDS: THIAMINE IV SCH (09:07)
--- NOTE | 2021-06-10 14:02 | PCM.PN ---
- General Info Date of Service: 06/10/21 Admission Dx/Problem (Free Text): Admission Diagnosis/Problem Admission Diagnosis/Problem Ambulatory dysfunction Subjective Update: seen at bedside, no acute distress, has been eating better Functional Status: Reports: Pain Controlled, Tolerating Diet (Tolerates mostly liquid diet), Ambulating, Urinating - Review of Systems General: Reports: Weakness. Denies: Fever, Fatigue, Malaise, Chills HEENT: Reports: Dysphasia Pulmonary: Denies: Shortness of Breath, Pleuritic Chest Pain Cardiovascular: Denies: Chest Pain, Palpitations, Dyspnea on Exertion Gastrointestinal: Denies: Abdominal Pain, Constipation, Decreased Appetite Genitourinary: Denies: Dysuria, Frequency, Burning Musculoskeletal: Denies: Neck Pain, Shoulder Pain, Arm Pain Skin: Denies: Cyanosis, Jaundice, Mottled - Patient Data Vitals - Most Recent: Last Vital Signs Temp 36.3 C 06/10/21 09:55 Pulse 98 06/10/21 09:55 Resp 18 06/10/21 09:55 BP 129/80 06/10/21 09:55 Pulse Ox 94 L 06/10/21 09:55 Weight - Most Recent: 66.281 kg I&O - Last 24 Hours: Intake & Output 06/09/21 06/10/21 06/10/21 22:59 06:59 14:59 Intake Total 2992 1431 Output Total 1500 Balance 2992 -69 Med Orders - Current: Current Medications Acetaminophen (Acetaminophen 325 Mg Tab) 650 mg PO Q4H PRN PRN Reason: Pain (Mild 1-3)/fever Albuterol/Ipratropium (Albuterol/Ipratropium 3.0-0.5 Mg/3 Ml Neb Soln) 3 ml NEB Q4HRRT PRN PRN Reason: Shortness Of Breath/wheezing Enoxaparin Sodium (Enoxaparin 40 Mg/0.4 Ml Syringe) 40 mg SUBCUT Q24H [facility] Last Admin: 06/09/21 20:06 Dose: 40 mg Documented by: Thiamine HCl 100 mg/ Premix 1 mls @ 30 mls/hr IV DAILY [facility] Last Admin: 06/10/21 09:07 Dose: 30 mls/hr Documented by: Mirtazapine (Mirtazapine 15 Mg Tab) 15 mg PO BEDTIME [facility] Last Admin: 06/09/21 21:59 Dose: 15 mg Documented by: Ondansetron HCl (Ondansetron 4 Mg/2 Ml Sdv) 4 mg IVPUSH Q4H PRN PRN Reason: Nausea/Vomiting Sodium Chloride (Sodium Chloride 0.9% 10 Ml Syringe) 10 ml FLUSH ASDIRECTED PRN PRN Reason: Keep Vein Open Last Admin: 06/07/21 16:56 Dose: 10 ml Documented by: Sodium Chloride (Sodium Chloride 0.9% 2.5 Ml Syringe) 2.5 ml FLUSH ASDIRECTED PRN PRN Reason: Keep Vein Open Last Admin: 06/07/21 16:57 Dose: 2.5 ml Documented by: Discontinued Medications Sodium Chloride (Normal Saline) 500 mls @ 999 mls/hr IV .Bolus ONE Stop: 06/07/21 15:57 Last Admin: 06/07/21 16:56 Dose: 999 mls/hr Documented by: Lactated Ringer's (Ringers, Lactated) 1,000 mls @ 125 mls/hr IV ASDIRECTED [facility] Last Admin: 06/10/21 05:00 Dose: 125 mls/hr Documented by: Thiamine HCl 100 mg/ Sodium (Chloride) 101 mls @ 202 mls/hr IV DAILY [facility] Last Admin: 06/08/21 10:32 Dose: Not Given Documented by: Iopamidol (Iopamidol 755 Mg/Ml 500 Ml Multipack Bottle) 75 ml IVPUSH ONETIME STA Stop: 06/08/21 14:59 Last Admin: 06/08/21 14:58 Dose: 75 ml Documented by: - Exam General: Alert, Oriented, Cooperative, No Acute Distress Lungs: Clear to Auscultation, Normal Respiratory Effort Cardiovascular: Regular Rate, Regular Rhythm GI/Abdominal Exam: Normal Bowel Sounds, Soft, Non-Tender Extremities: Normal Inspection, Normal Range of Motion Psy/Mental Status: Alert, Normal Affect, Normal Mood - Patient Data Result Diagrams: 06/07/21 16:05 06/07/21 16:05 Sepsis Event Note - Evaluation Sepsis Screening Result: No Definite Risk - Focused Exam Vital Signs: Vital Signs Temp Pulse Resp BP BP Pulse Ox 06/10/21 09:55 36.3 C 98 18 129/80 94 L 06/10/21 04:55 36.7 C 89 18 135/85 95 - Problem List & Annotations (1) Ambulatory dysfunction SNOMED Code(s): 176068073 Code(s): R26.2 - DIFFICULTY IN WALKING, NOT ELSEWHERE CLASSIFIED Status: Acute Current Visit: Yes (2) Alcoholism SNOMED Code(s): 8114400 Code(s): F10.20 - ALCOHOL DEPENDENCE, UNCOMPLICATED Status: Acute Current Visit: No (3) Ataxia SNOMED Code(s): 39134569 Code(s): R27.0 - ATAXIA, UNSPECIFIED Status: Acute Current Visit: No (4) Generalized muscle weakness SNOMED Code(s): 39718104, 25442798 Code(s): M62.81 - MUSCLE WEAKNESS (GENERALIZED) Status: Acute Current Visit: No (5) Unsteady gait SNOMED Code(s): 22091980 Code(s): R26.81 - UNSTEADINESS ON FEET Status: Acute Current Visit: No (6) Unintentional weight loss SNOMED Code(s): 832136511 Code(s): R63.4 - ABNORMAL WEIGHT LOSS Status: Acute Current Visit: Yes - Problem List Review Problem List Initiated/Reviewed/Updated: Yes - Plan Plan:: 71 y/o M admitted for generalized weakness, frequent falls, ambulatory dysfunction stop iv fluids, cont supplements Currently on regular diet Ensure supplements which diet, see above started on liquid diet Duonebs as needed iv thiamine Continue supportive care supportive care Pt consult for ambulation and strength, patient likely will need jail facility for rehab Speech therapy consult for swallow eval Patient interested in rehab placement needs outpatient colonoscopy
[2021-06-10] MEDS: Enoxaparin 40 MG/0.4 ML Syringe SUBCUT SCH (19:25)
[2021-06-10] MEDS: Mirtazapine 15 MG Tab PO SCH (20:58)
[2021-06-11 06:21] LABS: BLOOD UREA NITROGEN,BUN 14 mg/dL (7.0-18.0); CARBON DIOXIDE,CO2 30.2 mmol/L (21.0-32.0); CHLORIDE,CL 100 mmol/L (98-107); GLUCOSE RANDOM 119 mg/dL (74-106); POTASSIUM,K 4.8 mmol/L (3.5-5.1); SODIUM,NA 136 mmol/L (136-148)
[2021-06-11] MEDS: THIAMINE IV SCH (08:40)
--- NOTE | 2021-06-11 14:16 | PCM.PN ---
<Trupti Myers - Last Filed: 06/11/21 14:04> - General Info Date of Service: 06/11/21 Admission Dx/Problem (Free Text): Admission Diagnosis/Problem Admission Diagnosis/Problem Ambulatory dysfunction Subjective Update: 71-year-old male admitted for amatory dysfunction and weakness on June 07. No acute events overnight. Patient has issues with dysphagia but had a big breakfast this morning. He is ambulating well and states he feels stronger today. Patient is having small bowel movements. Patient is urinating. Spoke with the patient today regarding his remote alcohol use history. Patient has not had a drink in 6 years. - Review of Systems General: Reports: Weakness HEENT: Reports: Other (Dysphagia) Pulmonary: Reports: No Symptoms. Denies: Shortness of Breath Cardiovascular: Denies: Chest Pain, Palpitations Gastrointestinal: Reports: Difficulty Swallowing. Denies: Abdominal Pain, Diarr hea Genitourinary: Denies: Dysuria Musculoskeletal: Reports: No Symptoms Skin: Reports: No Symptoms Neurological: Reports: No Symptoms - Patient Data Vitals - Most Recent: Last Vital Signs Temp 97.4 F 06/11/21 09:07 Pulse 98 06/11/21 09:07 Resp 16 06/11/21 09:07 BP 102/70 06/11/21 09:07 Pulse Ox 92 L 06/11/21 09:07 Weight - Most Recent: 66.281 kg I&O - Last 24 Hours: Intake & Output 06/10/21 06/11/21 06/11/21 22:59 06:59 14:59 Intake Total 560 550 Output Total 1275 900 Balance -715 -350 Lab Results Last 24 Hours: Laboratory Results - last 24 hr 06/11/21 Range/Units 05:50 Sodium 136 (136-148) mmol/L Potassium 4.8 (3.5-5.1) mmol/L Chloride 100 (98-107) mmol/L Carbon Dioxide 30.2 (21.0-32.0) mmol/L BUN 14 (7.0-18.0) mg/dL Creatinine 0.9 (0.8-1.3) mg/dL Est Cr Clr Drug Dosing 68.53 mL/min Estimated GFR (MDRD) > 60.0 ml/min Glucose 119 H (74-106) mg/dL Calcium 8.8 (8.5-10.1) mg/dL Phosphorus 3.7 (2.6-4.7) mg/dL Magnesium 1.8 (1.8-2.4) mg/dL Med Orders - Current: Current Medications Acetaminophen (Acetaminophen 325 Mg Tab) 650 mg PO Q4H PRN PRN Reason: Pain (Mild 1-3)/fever Albuterol/Ipratropium (Albuterol/Ipratropium 3.0-0.5 Mg/3 Ml Neb Soln) 3 ml NEB Q4HRRT PRN PRN Reason: Shortness Of Breath/wheezing Enoxaparin Sodium (Enoxaparin 40 Mg/0.4 Ml Syringe) 40 mg SUBCUT Q24H [facility] Last Admin: 06/10/21 19:25 Dose: 40 mg Documented by: Thiamine HCl 100 mg/ Premix 1 mls @ 30 mls/hr IV DAILY [facility] Last Admin: 06/11/21 08:40 Dose: 30 mls/hr Documented by: Mirtazapine (Mirtazapine 15 Mg Tab) 15 mg PO BEDTIME [facility] Last Admin: 06/10/21 20:58 Dose: 15 mg Documented by: Ondansetron HCl (Ondansetron 4 Mg/2 Ml Sdv) 4 mg IVPUSH Q4H PRN PRN Reason: Nausea/Vomiting Sodium Chloride (Sodium Chloride 0.9% 10 Ml Syringe) 10 ml FLUSH ASDIRECTED PRN PRN Reason: Keep Vein Open Last Admin: 06/07/21 16:56 Dose: 10 ml Documented by: Sodium Chloride (Sodium Chloride 0.9% 2.5 Ml Syringe) 2.5 ml FLUSH ASDIRECTED PRN PRN Reason: Keep Vein Open Last Admin: 06/07/21 16:57 Dose: 2.5 ml Documented by: Discontinued Medications Sodium Chloride (Normal Saline) 500 mls @ 999 mls/hr IV .Bolus ONE Stop: 06/07/21 15:57 Last Admin: 06/07/21 16:56 Dose: 999 mls/hr Documented by: Lactated Ringer's (Ringers, Lactated) 1,000 mls @ 125 mls/hr IV ASDIRECTED [facility] Last Admin: 06/10/21 05:00 Dose: 125 mls/hr Documented by: Thiamine HCl 100 mg/ Sodium (Chloride) 101 mls @ 202 mls/hr IV DAILY [facility] Last Admin: 06/08/21 10:32 Dose: Not Given Documented by: Iopamidol (Iopamidol 755 Mg/Ml 500 Ml Multipack Bottle) 75 ml IVPUSH ONETIME STA Stop: 06/08/21 14:59 Last Admin: 06/08/21 14:58 Dose: 75 ml Documented by: - Exam General: Alert, Oriented, Cooperative, No Acute Distress HEENT: Pupils Equal, Pupils Reactive Neck: Supple Lungs: Clear to Auscultation, Normal Respiratory Effort Cardiovascular: Regular Rate, Regular Rhythm GI/Abdominal Exam: Normal Bowel Sounds, Soft, Non-Tender, No Distention Extremities: Normal Inspection, Normal Range of Motion, No Pedal Edema. No: Leg Pain Skin: Warm, Dry, Intact Neurological: No New Focal Deficit Psy/Mental Status: Alert - Patient Data Lab Results Last 24 hrs: Laboratory Results - last 24 hr 06/11/21 Range/Units 05:50 Sodium 136 (136-148) mmol/L Potassium 4.8 (3.5-5.1) mmol/L Chloride 100 (98-107) mmol/L Carbon Dioxide 30.2 (21.0-32.0) mmol/L BUN 14 (7.0-18.0) mg/dL Creatinine 0.9 (0.8-1.3) mg/dL Est Cr Clr Drug Dosing 68.53 mL/min Estimated GFR (MDRD) > 60.0 ml/min Glucose 119 H (74-106) mg/dL Calcium 8.8 (8.5-10.1) mg/dL Phosphorus 3.7 (2.6-4.7) mg/dL Magnesium 1.8 (1.8-2.4) mg/dL Result Diagrams: 06/07/21 16:05 06/11/21 05:50 Sepsis Event Note - Evaluation Sepsis Screening Result: No Definite Risk - Focused Exam Vital Signs: Vital Signs Temp Pulse Resp BP Pulse Ox 06/11/21 09:07 97.4 F 98 16 102/70 92 L 06/11/21 05:00 98.3 F 90 16 127/84 94 L - Problem List & Annotations (1) Ambulatory dysfunction SNOMED Code(s): 933301967 Code(s): R26.2 - DIFFICULTY IN WALKING, NOT ELSEWHERE CLASSIFIED Status: Acute Current Visit: Yes (2) Unintentional weight loss SNOMED Code(s): 143724612 Code(s): R63.4 - ABNORMAL WEIGHT LOSS Status: Acute Current Visit: Yes (3) Ataxia SNOMED Code(s): 53498545 Code(s): R27.0 - ATAXIA, UNSPECIFIED Status: Acute Current Visit: No (4) Generalized muscle weakness SNOMED Code(s): 63382652, 87945332 Code(s): M62.81 - MUSCLE WEAKNESS (GENERALIZED) Status: Acute Current Vis it: No (5) Unsteady gait SNOMED Code(s): 40939761 Code(s): R26.81 - UNSTEADINESS ON FEET Status: Acute Current Visit: No - Problem List Review Problem List Initiated/Reviewed/Updated: Yes - Plan Plan:: 71 y/o M admitted for generalized weakness, frequent falls, ambulatory dysfunct ion Patient is now on IV fluids. He is tolerating his Ensure supplements so we will continue those. Dietitian saw the patient this morning and recommended soft diet and Ensure supplements. We will follow recommendations. Duonebs as needed iv thiamine Continue supportive Pt consult for ambulation and strength, patient likely will need senior care facility for rehab Speech therapy consult for swallow eval Patient interested in rehab placement needs outpatient colonoscopy <Aggie Villalta - Last Filed: 06/11/21 20:17> - Patient Data Vitals - Most Recent: Last Vital Signs Temp 37.2 C 06/11/21 14:02 Pulse 94 06/11/21 18:30 Resp 17 06/11/21 18:30 BP 94/63 06/11/21 18:30 Pulse Ox 96 06/11/21 18:30 I&O - Last 24 Hours: Intake & Output 06/11/21 06/11/21 06/11/21 06:59 14:59 22:59 Intake Total 550 560 Output Total 900 570 Balance -350 -10 Lab Results Last 24 Hours: Laboratory Results - last 24 hr 06/11/21 Range/Units 05:50 Sodium 136 (136-148) mmol/L Potassium 4.8 (3.5-5.1) mmol/L Chloride 100 (98-107) mmol/L Carbon Dioxide 30.2 (21.0-32.0) mmol/L BUN 14 (7.0-18.0) mg/dL Creatinine 0.9 (0.8-1.3) mg/dL Est Cr Clr Drug Dosing 68.53 mL/min Estimated GFR (MDRD) > 60.0 ml/min Glucose 119 H (74-106) mg/dL Calcium 8.8 (8.5-10.1) mg/dL Phosphorus 3.7 (2.6-4.7) mg/dL Magnesium 1.8 (1.8-2.4) mg/dL Med Orders - Current: Current Medications Acetaminophen (Acetaminophen 325 Mg Tab) 650 mg PO Q4H PRN PRN Reason: Pain (Mild 1-3)/fever Albuterol/Ipratropium (Albuterol/Ipratropium 3.0-0.5 Mg/3 Ml Neb Soln) 3 ml NEB Q4HRRT PRN PRN Reason: Shortness Of Breath/wheezing Enoxaparin Sodium (Enoxaparin 40 Mg/0.4 Ml Syringe) 40 mg SUBCUT Q24H [facility] Last Admin: 06/10/21 19:25 Dose: 40 mg Documented by: Thiamine HCl 100 mg/ Premix 1 mls @ 30 mls/hr IV DAILY [facility] Last Admin: 06/11/21 08:40 Dose: 30 mls/hr Documented by: Mirtazapine (Mirtazapine 15 Mg Tab) 15 mg PO BEDTIME [facility] Last Admin: 06/10/21 20:58 Dose: 15 mg Documented by: Ondansetron HCl (Ondansetron 4 Mg/2 Ml Sdv) 4 mg IVPUSH Q4H PRN PRN Reason: Nausea/Vomiting Polyethylene Glycol (Polyethylene Glycol 3350 Powder 17 Gm Packet) 17 gm PO DAILY PRN PRN Reason: Constipation Sodium Chloride (Sodium Chloride 0.9% 10 Ml Syringe) 10 ml FLUSH ASDIRECTED PRN PRN Reason: Keep Vein Open Last Admin: 06/07/21 16:56 Dose: 10 ml Documented by: Sodium Chloride (Sodium Chloride 0.9% 2.5 Ml Syringe) 2.5 ml FLUSH ASDIRECTED PRN PRN Reason: Keep Vein Open Last Admin: 06/07/21 16:57 Dose: 2.5 ml Documented by: Discontinued Medications Sodium Chloride (Normal Saline) 500 mls @ 999 mls/hr IV .Bolus ONE Stop: 06/07/21 15:57 Last Admin: 06/07/21 16:56 Dose: 999 mls/hr Documented by: Lactated Ringer's (Ringers, Lactated) 1,000 mls @ 125 mls/hr IV ASDIRECTED [facility] Last Admin: 06/10/21 05:00 Dose: 125 mls/hr Documented by: Thiamine HCl 100 mg/ Sodium (Chloride) 101 mls @ 202 mls/hr IV DAILY [facility] Last Admin: 06/08/21 10:32 Dose: Not Given Documented by: Iopamidol (Iopamidol 755 Mg/Ml 500 Ml Multipack Bottle) 75 ml IVPUSH ONETIME STA Stop: 06/08/21 14:59 Last Admin: 06/08/21 14:58 Dose: 75 ml Documented by: Polyethylene Glycol (Polyethylene Glycol 3350 Powder 17 Gm Packet) 17 gm PO BEDTIME [facility] - Patient Data Lab Results Last 24 hrs: Laboratory Results - last 24 hr 06/11/21 Range/Units 05:50 Sodium 136 (136-148) mmol/L Potassium 4.8 (3.5-5.1) mmol/L Chloride 100 (98-107) mmol/L Carbon Dioxide 30.2 (21.0-32.0) mmol/L BUN 14 (7.0-18.0) mg/dL Creatinine 0.9 (0.8-1.3) mg/dL Est Cr Clr Drug Dosing 68.53 mL/min Estimated GFR (MDRD) > 60.0 ml/min Glucose 119 H (74-106) mg/dL Calcium 8.8 (8.5-10.1) mg/dL Phosphorus 3.7 (2.6-4.7) mg/dL Magnesium 1.8 (1.8-2.4) mg/dL Result Diagrams: 06/07/21 16:05 06/11/21 05:50 Sepsis Event Note - Focused Exam Vital Signs: Vital Signs Temp Pulse Resp BP BP Pulse Ox 06/11/21 18:30 94 17 94/63 96 06/11/21 14:02 37.2 C 85 17 105/64 93 L 06/11/21 09:07 36.3 C 98 16 102/70 92 L - Problem List & Annotations (1) Ambulatory dysfunction SNOMED Code(s): 874203776 Code(s): R26.2 - DIFFICULTY IN WALKING, NOT ELSEWHERE CLASSIFIED Status: Acute Current Visit: Yes (2) Ataxia SNOMED Code(s): 53093631 Code(s): R27.0 - ATAXIA, UNSPECIFIED Status: Acute Current Visit: No (3) Generalized muscle weakness SNOMED Code(s): 82201128, 81905334 Code(s): M62.81 - MUSCLE WEAKNESS (GENERALIZED) Status: Acute Current Visit: No (4) Unsteady gait SNOMED Code(s): 51857687 Code(s): R26.81 - UNSTEADINESS ON FEET Status: Acute Current Visit: No (5) Unintentional weight loss SNOMED Code(s): 929206932 Code(s): R63.4 - ABNORMAL WEIGHT LOSS Status: Acute Current Visit: Yes - My Orders Last 24 Hours: My Active Orders 06/11/21 20:09 polyethylene glycoL 3350 [MiraLAX] 17 gm PO DAILY PRN - Plan Plan:: I have seen and evaluated the patient and agree with the residents note unless specified in my note Patient had h/o alcoholism in remote past, there is no concern of alcohol abuse currently.
[2021-06-11] MEDS: Enoxaparin 40 MG/0.4 ML Syringe SUBCUT SCH (20:00)
[2021-06-11] MEDS ORDERED: Polyethylene Glycol 3350 Powder 17 GM Packet PO PRN (20:09)
[2021-06-11] MEDS ORDERED: Polyethylene Glycol 3350 Powder 17 GM Packet PO SCH (21:00)
[2021-06-11] MEDS: Mirtazapine 15 MG Tab PO SCH (21:05)
[2021-06-12] MEDS: THIAMINE IV SCH (09:12)
--- NOTE | 2021-06-12 11:43 | PCM.PN ---
- General Info Date of Service: 06/12/21 Admission Dx/Problem (Free Text): Admission Diagnosis/Problem Admission Diagnosis/Problem Ambulatory dysfunction Subjective Update: 71-year-old male admitted for amatory dysfunction and weakness on June 07. No acute events overnight. Patient had complaints of constipation and was given MiraLAX last night which has helped. Patient tolerated breakfast well. He states that he feels better this morning. He is ambulating and agrees to participate in physical therapy today. Patient is urinating. Social work is currently working on having patient transferred to intermediate facility or swing bed. - Review of Systems General: Reports: Weakness HEENT: Reports: Other (Dysphagia) Pulmonary: Reports: No Symptoms. Denies: Shortness of Breath Cardiovascular: Denies: Chest Pain, Palpitations, Dyspnea on Exertion Gastrointestinal: Reports: Constipation. Denies: Abdominal Pain, Diarrhea, Melena Genitourinary: Denies: Dysuria, Frequency Musculoskeletal: Denies: Leg Pain, Joint Pain, Joint Swelling Skin: Reports: No Symptoms Neurological: Denies: Confusion, Dizziness, Headache - Patient Data Vitals - Most Recent: Last Vital Signs Temp 96.4 F L 06/12/21 09:05 Pulse 93 06/12/21 09:05 Resp 16 06/12/21 09:05 BP 113/76 06/12/21 09:05 Pulse Ox 95 06/12/21 09:05 Weight - Most Recent: 146 lb 2 oz I&O - Last 24 Hours: Intake & Output 06/11/21 06/12/21 06/12/21 22:59 06:59 14:59 Intake Total 560 300 Output Total 570 550 Balance -10 -250 Med Orders - Current: Current Medications Acetaminophen (Acetaminophen 325 Mg Tab) 650 mg PO Q4H PRN PRN Reason: Pain (Mild 1-3)/fever Albuterol/Ipratropium (Albuterol/Ipratropium 3.0-0.5 Mg/3 Ml Neb Soln) 3 ml NEB Q4HRRT PRN PRN Reason: Shortness Of Breath/wheezing Enoxaparin Sodium (Enoxaparin 40 Mg/0.4 Ml Syringe) 40 mg SUBCUT Q24H [facility] Last Admin: 06/11/21 20:00 Dose: 40 mg Documented by: Thiamine HCl 100 mg/ Premix 1 mls @ 30 mls/hr IV DAILY [facility] Last Admin: 06/12/21 09:12 Dose: 30 mls/hr Documented by: Mirtazapine (Mirtazapine 15 Mg Tab) 15 mg PO BEDTIME [facility] Last Admin: 06/11/21 21:05 Dose: 15 mg Documented by: Ondansetron HCl (Ondansetron 4 Mg/2 Ml Sdv) 4 mg IVPUSH Q4H PRN PRN Reason: Nausea/Vomiting Polyethylene Glycol (Polyethylene Glycol 3350 Powder 17 Gm Packet) 17 gm PO DAILY PRN PRN Reason: Constipation Last Admin: 06/11/21 21:05 Dose: 17 gm Documented by: Sodium Chloride (Sodium Chloride 0.9% 10 Ml Syringe) 10 ml FLUSH ASDIRECTED PRN PRN Reason: Keep Vein Open Last Admin: 06/07/21 16:56 Dose: 10 ml Documented by: Sodium Chloride (Sodium Chloride 0.9% 2.5 Ml Syringe) 2.5 ml FLUSH ASDIRECTED PRN PRN Reason: Keep Vein Open Last Admin: 06/07/21 16:57 Dose: 2.5 ml Documented by: Discontinued Medications Sodium Chloride (Normal Saline) 500 mls @ 999 mls/hr IV .Bolus ONE Stop: 06/07/21 15:57 Last Admin: 06/07/21 16:56 Dose: 999 mls/hr Documented by: Lactated Ringer's (Ringers, Lactated) 1,000 mls @ 125 mls/hr IV ASDIRECTED [facility] Last Admin: 06/10/21 05:00 Dose: 125 mls/hr Documented by: Thiamine HCl 100 mg/ Sodium (Chloride) 101 mls @ 202 mls/hr IV DAILY [facility] Last Admin: 06/08/21 10:32 Dose: Not Given Documented by: Iopamidol (Iopamidol 755 Mg/Ml 500 Ml Multipack Bottle) 75 ml IVPUSH ONETIME STA Stop: 06/08/21 14:59 Last Admin: 06/08/21 14:58 Dose: 75 ml Documented by: Polyethylene Glycol (Polyethylene Glycol 3350 Powder 17 Gm Packet) 17 gm PO BEDTIME [facility] - Exam General: Alert, Oriented, Cooperative, No Acute Distress HEENT: Pupils Equal Neck: Supple Lungs: Clear to Auscultation, Normal Respiratory Effort Cardiovascular: Regular Rate, Regular Rhythm, No Murmurs GI/Abdominal Exam: Normal Bowel Sounds, Soft, Non-Tender, No Distention Extremities: Normal Inspection, Normal Range of Motion, Non-Tender, No Pedal Edema Skin: Warm, Dry, Intact Neurological: No New Focal Deficit - Patient Data Result Diagrams: 06/07/21 16:05 06/11/21 05:50 Sepsis Event Note - Evaluation Sepsis Screening Result: No Definite Risk - Focused Exam Vital Signs: Vital Signs Temp Pulse Resp BP BP Pulse Ox 06/12/21 09:05 96.4 F L 93 16 113/76 95 06/12/21 04:30 98.3 F 89 20 116/78 92 L 06/12/21 00:00 97.1 F 85 18 131/84 93 L - Problem List & Annotations (1) Ambulatory dysfunction SNOMED Code(s): 798243351 Code(s): R26.2 - DIFFICULTY IN WALKING, NOT ELSEWHERE CLASSIFIED Status: Acute Current Visit: Yes (2) Unintentional weight loss SNOMED Code(s): 570223113 Code(s): R63.4 - ABNORMAL WEIGHT LOSS Status: Acute Current Visit: Yes (3) Ataxia SNOMED Code(s): 57135975 Code(s): R27.0 - ATAXIA, UNSPECIFIED Status: Acute Current Visit: No (4) Generalized muscle weakness SNOMED Code(s): 61378671, 57110756 Code(s): M62.81 - MUSCLE WEAKNESS (GENERALIZED) Status: Acute Current Visit: No (5) Unsteady gait SNOMED Code(s): 75561891 Code(s): R26.81 - UNSTEADINESS ON FEET Status: Acute Current Visit: No - Problem List Review Problem List Initiated/Reviewed/Updated: Yes - Assessment Assessment:: 71-year-old male admitted for generalized weakness and ambulatory dysfunction. Patient was switched to a soft diet yesterday with Ensure supplements, as recommended by dietitian. Patient is tolerating his diet well. Continue physical therapy for ambulation and strength. Patient will likely be transferred tomorrow to [facility] alf. Patient had an elevated TSH of 5.3 but free T4 is normal at 1.2, patient is euthyroid. Patient has a distant remote history of alcoholism, last drink was 6 years ago. We will continue supportive care. Duo nebs as needed. Patient will need outpatient colonoscopy.
[2021-06-12] MEDS ORDERED: Bisacodyl 10 MG Supp RECTAL PRN (14:39)
[2021-06-12] MEDS ORDERED: Bisacodyl 10 MG Supp RECTAL ONE (14:39)
[2021-06-12] MEDS: Enoxaparin 40 MG/0.4 ML Syringe SUBCUT SCH (20:30)
[2021-06-12] MEDS: Mirtazapine 15 MG Tab PO SCH (21:19)
[2021-06-13] MEDS: Cocoa Butter/Phenylephrine Rectal Supp RECTAL ONE ×2 (10:05→10:07)
[2021-06-13] MEDS: Thiamine 200 MG/2 ML MDV ONE ×2 (10:36→10:53)
[2021-06-13] MEDS: Thiamine 200 MG/2 ML MDV IVPUSH SCH (11:05)
--- NOTE | 2021-06-13 13:22 | CT ---
Indication: Severe rectal pain, constipation Technique: Volumetric multidetector CT images of the abdomen and pelvis were without the administration of intravenous contrast. Comparison: None available. Findings: There is an elevated left hemidiaphragm with basilar atelectasis versus scar. There is parenchymal scarring and consolidation within the right lung base. The liver is normal in attenuation without intrahepatic biliary ductal dilatation. The gallbladder is unremarkable without evidence of radiopaque calculus. There is no significant common biliary ductal dilatation or abrupt cut off. The spleen is normal in attenuation and size. The stomach and duodenum are grossly unremarkable. The pancreas is normal in attenuation without significant atrophy. The adrenal glands are unremarkable. There is no evidence of radiopaque calculus or hydronephrosis. There is a severe amount of stool seen throughout the colon with marked stool seen within the rectal vault with mild thickening of the rectum and minimal perirectal inflammatory changes which may represent stercoral colitis. Additionally, there is demonstration of a bowel and fat containing left inguinal hernia with minimal fluid distension of the contained bowel contents. The appendix is unremarkable. There is no significant mesenteric, retroperitoneal, or pelvic sidewall lymph nodes. The aorta is nonaneurysmal. There is no significant atherosclerotic disease appreciated. The solid pelvic viscera are grossly unremarkable. There is no free fluid or free air. There is demonstration of a small likely injection hematoma within the left lower quadrant superficial subcutaneous soft tissues. The lumbar vertebral body heights are grossly maintained with minimal endplate Schmorl`s defects. There is no evidence of displaced fracture. There is moderate facet arthrosis. Impression: Moderate to severe stool seen throughout the colon with marked fecal impaction of the rectum with mild perirectal inflammatory change which may represent stercoral colitis/proctitis. Demonstration of a fat and bowel containing left inguinal hernia. No definite obstruction is appreciated. Correlate with history of clinical symptoms. Elevated left hemidiaphragm with basilar atelectasis and/or parenchymal scarring. Minimal superficial subcutaneous hematoma in the left lower quadrant abdominal soft tissues. Please note that all CT scans at this facility use dose modulation, iterative reconstruction, and/or weight-based dosing when appropriate to reduce radiation dose to as low as reasonably achievable. Dictated by Julian Cross MD @ 06/13/2021 1:21:[address] Julian Cross @ Jun 13 2021 1:21PM
--- NOTE | 2021-06-13 14:01 | PCM.PN ---
- General Info Date of Service: 06/13/21 Admission Dx/Problem (Free Text): Admission Diagnosis/Problem Admission Diagnosis/Problem Ambulatory dysfunction Subjective Update: 71-year-old male admitted for ambulatory dysfunction and weakness on June 07. Patient was scheduled to be transferred to a alf facility today but is having complaints of rectal pain and passing of hard stools. Patient did have a bowel movement this morning and states he feels better. When we visited the patient again he stated that the pain was still there and he did not feel w ell. Patient will not be transferred today. Patient tolerated breakfast well. - Review of Systems General: Denies: Fever, Chills HEENT: Reports: No Symptoms Pulmonary: Reports: No Symptoms Cardiovascular: Denies: Chest Pain, Palpitations, Edema Gastrointestinal: Reports: Constipation, Flatus. Denies: Abdominal Pain, Decreased Appetite, Hematochezia, Melena, Nausea, Vomiting Genitourinary: Denies: Dysuria, Frequency, Burning, Pain, Hematuria, Flank Pain Musculoskeletal: Reports: No Symptoms Skin: Reports: No Symptoms Neurological: Denies: Confusion, Dizziness, Headache, Numbness, Paresthesia - Patient Data Vitals - Most Recent: Last Vital Signs Temp 96.8 F L 06/13/21 12:00 Pulse 103 H 06/13/21 12:00 Resp 20 06/13/21 12:00 BP 106/71 06/13/21 12:00 Pulse Ox 95 06/13/21 12:00 Weight - Most Recent: 146 lb 2 oz I&O - Last 24 Hours: Intake & Output 06/12/21 06/13/21 06/13/21 22:59 06:59 14:59 Intake Total 237 150 Output Total 150 200 Balance 87 -50 Med Orders - Current: Current Medications Acetaminophen (Acetaminophen 325 Mg Tab) 650 mg PO Q4H PRN PRN Reason: Pain (Mild 1-3)/fever Last Admin: 06/12/21 17:41 Dose: 650 mg Documented by: Albuterol/Ipratropium (Albuterol/Ipratropium 3.0-0.5 Mg/3 Ml Neb Soln) 3 ml NEB Q4HRRT PRN PRN Reason: Shortness Of Breath/wheezing Bisacodyl (Bisacodyl 10 Mg Supp) 10 mg RECTAL DAILY PRN PRN Reason: Constipation Enoxaparin Sodium (Enoxaparin 40 Mg/0.4 Ml Syringe) 40 mg SUBCUT Q24H [facility] Last Admin: 06/12/21 20:30 Dose: 40 mg Documented by: Mirtazapine (Mirtazapine 15 Mg Tab) 15 mg PO BEDTIME [facility] Last Admin: 06/12/21 21:19 Dose: 15 mg Documented by: Ondansetron HCl (Ondansetron 4 Mg/2 Ml Sdv) 4 mg IVPUSH Q4H PRN PRN Reason: Nausea/Vomiting Polyethylene Glycol (Polyethylene Glycol 3350 Powder 17 Gm Packet) 17 gm PO BID [facility] Sodium Chloride (Sodium Chloride 0.9% 10 Ml Syringe) 10 ml FLUSH ASDIRECTED PRN PRN Reason: Keep Vein Open Last Admin: 06/07/21 16:56 Dose: 10 ml Documented by: Sodium Chloride (Sodium Chloride 0.9% 2.5 Ml Syringe) 2.5 ml FLUSH ASDIRECTED PRN PRN Reason: Keep Vein Open Last Admin: 06/07/21 16:57 Dose: 2.5 ml Documented by: Thiamine HCl (Thiamine 200 Mg/2 Ml Mdv) 100 mg IVPUSH DAILY [facility] Last Admin: 06/13/21 11:05 Dose: 100 mg Documented by: Discontinued Medications Bisacodyl (Bisacodyl 10 Mg Supp) 10 mg RECTAL ONETIME ONE Stop: 06/12/21 14:40 Last Admin: 06/12/21 16:26 Dose: 10 mg Documented by: [place] Butter/Phenylephrine ([place] Butter/Phenylephrine Rectal Supp) 1 each RECTAL ONETIME ONE Stop: 06/13/21 09:50 Last Admin: 06/13/21 10:05 Dose: 1 each Documented by: Sodium Chloride (Normal Saline) 500 mls @ 999 mls/hr IV .Bolus ONE Stop: 06/07/21 15:57 Last Admin: 06/07/21 16:56 Dose: 999 mls/hr Documented by: Lactated Ringer's (Ringers, Lactated) 1,000 mls @ 125 mls/hr IV ASDIRECTED [facility] Last Admin: 06/10/21 05:00 Dose: 125 mls/hr Documented by: Thiamine HCl 100 mg/ Sodium (Chloride) 101 mls @ 202 mls/hr IV DAILY [facility] Last Admin: 06/08/21 10:32 Dose: Not Given Documented by: Thiamine HCl 100 mg/ Premix 1 mls @ 30 mls/hr IV DAILY RUTHY Last Admin: 06/12/21 09:12 Dose: 30 mls/hr Documented by: Iopamidol (Iopamidol 755 Mg/Ml 500 Ml Multipack Bottle) 75 ml IVPUSH ONETIME STA Stop: 06/08/21 14:59 Last Admin: 06/08/21 14:58 Dose: 75 ml Documented by: Polyethylene Glycol (Polyethylene Glycol 3350 Powder 17 Gm Packet) 17 gm PO BEDTIME RUTHY Polyethylene Glycol (Polyethylene Glycol 3350 Powder 17 Gm Packet) 17 gm PO DAILY PRN PRN Reason: Constipation Last Admin: 06/11/21 21:05 Dose: 17 gm Documented by: Thiamine HCl (Thiamine 200 Mg/2 Ml Mdv) Confirm Administered Dose 200 mg .ROUTE .STK-MED ONE Stop: 06/13/21 10:29 Last Admin: 06/13/21 10:53 Dose: Not Given Documented by: - Exam General: Alert, Oriented, Mild Distress Neck: Supple Lungs: Clear to Auscultation Cardiovascular: Regular Rate, Regular Rhythm, No Murmurs GI/Abdominal Exam: Non-Tender, No Distention, Rigid. No: Rebound (Male) Exam: No: Suprapubic Fullness Extremities: Normal Inspection Skin: Warm, Dry, Intact Neurological: Normal Gait - Patient Data Result Diagrams: 06/07/21 16:05 06/11/21 05:50 Sepsis Event Note - Evaluation Sepsis Screening Result: No Definite Risk - Focused Exam Vital Signs: Vital Signs Temp Pulse Resp BP Pulse Ox 06/13/21 12:00 96.8 F L 103 H 20 106/71 95 06/13/21 08:00 97.8 F 99 16 115/76 96 06/13/21 04:00 97.6 F 100 17 128/83 94 L - Problem List & Annotations (1) Ambulatory dysfunction SNOMED Code(s): 060514679 Code(s): R26.2 - DIFFICULTY IN WALKING, NOT ELSEWHERE CLASSIFIED Status: Acute Current Visit: Yes (2) Unintentional weight loss SNOMED Code(s): 090063760 Code(s): R63.4 - ABNORMAL WEIGHT LOSS Status: Acute Current Visit: Yes (3) Ataxia SNOMED Code(s): 96751587 Code(s): R27.0 - ATAXIA, UNSPECIFIED Status: Acute Current Visit: No (4) Generalized muscle weakness SNOMED Code(s): 48391314, 89859745 Code(s): M62.81 - MUSCLE WEAKNESS (GENERALIZED) Status: Acute Current Vi sit: Yes (5) Unsteady gait SNOMED Code(s): 12447278 Code(s): R26.81 - UNSTEADINESS ON FEET Status: Acute Current Visit: Yes (6) Constipation SNOMED Code(s): 45616893 Code(s): K59.00 - CONSTIPATION, UNSPECIFIED Status: Acute Current Visit: Yes - Problem List Review Problem List Initiated/Reviewed/Updated: Yes - My Orders Last 24 Hours: My Active Orders 06/13/21 11:58 UA RFX OLIVERIO AND CULT IF INDIC [URIN] Urgent 06/13/21 13:45 polyethylene glycoL 3350 [MiraLAX] 17 gm PO BID - Plan Plan:: 71-year-old male admitted for generalized weakness and ambulatory dysfunction. Patient was scheduled to be transferred to a alf facility today but complains of rectal pain and constipation, so we will hold off on this. We will order a CT scan of the abdomen/pelvis. We will also do urinalysis. Patient had an elevated TSH of 5.3 but free T4 is normal at 1.2, patient is euthyroid. Patient has a distant remote history of alcoholism, last drink was 6 years ago. We will continue supportive care. Patient will need outpatient colonoscopy.
[2021-06-13] MEDS: Polyethylene Glycol 3350 Powder 17 GM Packet PO SCH ×2 (14:30→21:42)
[2021-06-13] MEDS: THIAMINE IV SCH (16:51)
[2021-06-13] MEDS: Enoxaparin 40 MG/0.4 ML Syringe SUBCUT SCH (20:16)
[2021-06-13] MEDS: Mirtazapine 15 MG Tab PO SCH (21:42)
[2021-06-14 07:16] LABS: BLOOD UREA NITROGEN,BUN 22 mg/dL (7.0-18.0); CARBON DIOXIDE,CO2 30.6 mmol/L (21.0-32.0); CHLORIDE,CL 101 mmol/L (98-107); GLUCOSE RANDOM 93 mg/dL (74-106); POTASSIUM,K 4.3 mmol/L (3.5-5.1); SODIUM,NA 138 mmol/L (136-148)
[2021-06-14] MEDS: Polyethylene Glycol 3350 Powder 17 GM Packet PO SCH (09:39)
[2021-06-14] MEDS: Thiamine 200 MG/2 ML MDV IVPUSH SCH (09:42)
[2021-06-14 11:16] VITALS: BP 97/64; PULSE 105
--- NOTE | 2021-06-14 12:07 | PCM.DCSUM1 ---
Discharge Summary - Hospital Course Free Text/Narrative:: 71-year-old male presented to the ER for worsening generalized weakness. Patient was seen in ER a few times in the week prior to admission for frequent falls and generalized weakness. Patient stated he got so weak that he had to sit down and was unable to get up again. Patient lives in a small house without air conditioning and his son's mother had been helping to take care of him but she no longer can help. Patient said he suffered several pound weight loss unintentionally over the last couple of years due to lack of appetite. He denies any chest pain or difficulty breathing. No recent travel or sick contacts. Work up cbc bmp, and imagining unremarkable for any acute findings at time of admission. Patient was admitted for generalized weakness. He was provided adequate nutrition including boost supplements. He worked with PT/OT and gained strength. He did have complaints of difficulty swallowing which is a chronic issue. Speech therapy worked with him on different maneuvers to ease swallowing. He was found to be constipated on CT abd/pelvis which was managed with mineral oil enema and MiraLax bid. Patient had 11 bowel movements the day prior to discharge. He is stable and ready for transfer to skilled rehab facility for strengthening. Close follow up with PCP recommended. Diagnosis: Stroke: No - Discharge Data Discharge Date: 06/14/21 Discharge Disposition: DC/Tfer to SNF 03 Condition: Stable - Referral to Home Health Primary Care Physician: PCP None - Discharge Diagnosis/Problem(s) (1) Ambulatory dysfunction SNOMED Code(s): 209765345 ICD Code: R26.2 - DIFFICULTY IN WALKING, NOT ELSEWHERE CLASSIFIED Status: Acute (2) Unintentional weight loss SNOMED Code(s): 622215619 ICD Code: R63.4 - ABNORMAL WEIGHT LOSS Status: Acute (3) Ataxia SNOMED Code(s): 39557420 ICD Code: R27.0 - ATAXIA, UNSPECIFIED Status: Acute (4) Generalized muscle weakness SNOMED Code(s): 11924874, 15294813 ICD Code: M62.81 - MUSCLE WEAKNESS (GENERALIZED) Status: Acute (5) Unsteady gait SNOMED Code(s): 64616771 ICD Code: R26.81 - UNSTEADINESS ON FEET Status: Acute (6) Constipation SNOMED Code(s): 96475834 ICD Code: K59.00 - CONSTIPATION, UNSPECIFIED Status: Acute - Patient Summary/Data Consults: Consultations 06/07/21 18:39 PT Evaluation and Treatment [CONS] Routine 06/08/21 10:21 Consult to Speech Language Pathology [[employer] Evaluation and Treatment] [CONS] Routine 06/08/21 10:52 OT Evaluation and Treatment [CONS] Routine - Patient Instructions Diet: Mechanical Soft Activity: As Tolerated Driving: Do Not Drive Showering/Bathing: May Shower - Discharge Plan *PRESCRIPTION DRUG MONITORING PROGRAM REVIEWED*: Not Applicable *COPY OF PRESCRIPTION DRUG MONITORING REPORT IN PATIENT SOFÍA: Not Applicable Home Medications: Home Meds Multivitamin 1 tab PO DAILY 05/31/21 [History] Magnesium Oxide/Magnesium [Magnesium] 300 mg PO BID #60 capsule 06/01/21 [Rx] Aspirin 81 mg PO DAILY 06/07/21 [History] Cyanocobalamin/Folic AC/Vit B6 [B Complex-Folic Acid] 1 tab PO DAILY 06/07/21 [History] Patient Handouts: Fall Prevention in the Home, Adult, [id number], Preventing Complications From Unhealthy Weight Loss Behaviors, Adult, Polyethylene Glycol powder Referrals: Trupti Myers MD [Resident] - 06/21/21 2:00 pm Gretta Tyler MD [Physician] - 08/22/21 10:00 am - Discharge Summary/Plan Comment DC Time >30 min.: Yes - General Info Date of Service: 06/14/21 Admission Dx/Problem (Free Text: Admission Diagnosis/Problem Admission Diagnosis/Problem Ambulatory dysfunction - Review of Systems General: Reports: Weakness. Denies: Fever HEENT: Reports: Other (Dysphagia) Pulmonary: Reports: No Symptoms. Denies: Shortness of Breath, Pleuritic Chest Pain, Cough Cardiovascular: Denies: Chest Pain, Palpitations, Dyspnea on Exertion, Edema Gastrointestinal: Denies: Abdominal Pain, Hematochezia, Melena, Nausea, Vomiting Genitourinary: Reports: No Symptoms. Denies: Dysuria, Hematuria, Flank Pain Musculoskeletal: Reports: No Symptoms Skin: Reports: No Symptoms Neurological: Denies: Confusion, Dizziness, Headache, Tingling Psychiatric: Denies: Confusion, Depression, Mood Lability, Anxiety - Patient Data Vitals - Most Recent: Last Vital Signs Temp 96 F L 06/14/21 11:00 Pulse 105 H 07/29/21 11:00 Resp 18 06/14/21 11:00 BP 97/64 06/14/21 11:00 Pulse Ox 96 06/14/21 11:00 Weight - Most Recent: 146 lb 2 oz I&O - Last 24 hours: Intake & Output 06/13/21 06/14/21 06/14/21 22:59 06:59 14:59 Intake Total 480 400 480 Balance 480 400 480 Lab Results - Last 24 hrs: Laboratory Results - last 24 hr 06/13/21 06/14/21 06/14/21 Range/Units 15:55 05:23 05:23 WBC 5.61 (4.0-11.0) K/uL RBC 4.42 L (4.50-5.90) M/uL Hgb 13.8 (13.0-17.0) g/dL Hct 40.6 (38.0-50.0) % MCV 91.9 (80.0-98.0) fL MCH 31.2 (27.0-32.0) pg MCHC 34.0 (31.0-37.0) g/dL RDW Std Deviation 48.5 (28.0-62.0) fl RDW Coeff of Brian 14 (11.0-15.0) % Plt Count 266 (150-400) K/uL MPV 11.20 (7.40-12.00) fL Neut % (Auto) 60.2 (48.0-80.0) % Lymph % (Auto) 25.8 (16.0-40.0) % [place] % (Auto) 11.8 (0.0-15.0) % Eos % (Auto) 1.8 (0.0-7.0) % Baso % (Auto) 0.4 (0.0-1.5) % Neut # (Auto) 3.4 (1.4-5.7) K/uL Lymph # (Auto) 1.5 (0.6-2.4) K/uL [place] # (Auto) 0.7 (0.0-0.8) K/uL Eos # (Auto) 0.1 (0.0-0.7) K/uL Baso # (Auto) 0.0 (0.0-0.1) K/uL Nucleated RBC % 0.0 /100WBC Nucleated RBCs # 0 K/uL Sodium 138 (136-148) mmol/L Potassium 4.3 (3.5-5.1) mmol/L Chloride 101 (98-107) mmol/L Carbon Dioxide 30.6 (21.0-32.0) mmol/L BUN 22 H (7.0-18.0) mg/dL Creatinine 1.0 (0.8-1.3) mg/dL Est Cr Clr Drug Dosing 61.68 mL/min Estimated GFR (MDRD) > 60.0 ml/min Glucose 93 (74-106) mg/dL Calcium 9.1 (8.5-10.1) mg/dL Urine Color YELLOW Urine Appearance CLOUDY Urine pH 7.5 (5.0-8.0) Ur Specific [place] 1.020 (1.001-1.035) Urine Protein NEGATIVE (NEGATIVE) mg/dL Urine Glucose (UA) NEGATIVE (NEGATIVE) mg/dL Urine Ketones TRACE H (NEGATIVE) mg/dL Urine Occult Blood NEGATIVE (NEGATIVE) Urine Nitrite NEGATIVE (NEGATIVE) Urine Bilirubin NEGATIVE (NEGATIVE) Urine Urobilinogen 2.0 H (<2.0) EU/dL Ur Leukocyte Esterase NEGATIVE (NEGATIVE) Med Orders - Current: Current Medications Discontinued Medications Acetaminophen (Acetaminophen 325 Mg Tab) 650 mg PO Q4H PRN PRN Reason: Pain (Mild 1-3)/fever Last Admin: 06/12/21 17:41 Dose: 650 mg Documented by: Albuterol/Ipratropium (Albuterol/Ipratropium 3.0-0.5 Mg/3 Ml Neb Soln) 3 ml NEB Q4HRRT PRN PRN Reason: Shortness Of Breath/wheezing Bisacodyl (Bisacodyl 10 Mg Supp) 10 mg RECTAL ONETIME ONE Stop: 06/12/21 14:40 Last Admin: 06/12/21 16:26 Dose: 10 mg Documented by: Bisacodyl (Bisacodyl 10 Mg Supp) 10 mg RECTAL DAILY PRN PRN Reason: Constipation [place] Butter/Phenylephrine ([place] Butter/Phenylephrine Rectal Supp) 1 each RECTAL ONETIME ONE Stop: 06/13/21 09:50 Last Admin: 06/13/21 10:05 Dose: 1 each Documented by: Enoxaparin Sodium (Enoxaparin 40 Mg/0.4 Ml Syringe) 40 mg SUBCUT Q24H [facility] Last Admin: 06/13/21 20:16 Dose: 40 mg Documented by: Sodium Chloride (Normal Saline) 500 mls @ 999 mls/hr IV .Bolus ONE Stop: 06/07/21 15:57 Last Admin: 06/07/21 16:56 Dose: 999 mls/hr Documented by: Lactated Ringer's (Ringers, Lactated) 1,000 mls @ 125 mls/hr IV ASDIRECTED [facility] Last Admin: 06/10/21 05:00 Dose: 125 mls/hr Documented by: Thiamine HCl 100 mg/ Sodium (Chloride) 101 mls @ 202 mls/hr IV DAILY [facility] Last Admin: 06/08/21 10:32 Dose: Not Given Documented by: Thiamine HCl 100 mg/ Premix 1 mls @ 30 mls/hr IV DAILY [facility] Last Admin: 06/13/21 16:51 Dose: Not Given Documented by: Iopamidol (Iopamidol 755 Mg/Ml 500 Ml Multipack Bottle) 75 ml IVPUSH ONETIME STA Stop: 06/08/21 14:59 Last Admin: 06/08/21 14:58 Dose: 75 ml Documented by: Mirtazapine (Mirtazapine 15 Mg Tab) 15 mg PO BEDTIME [facility] Last Admin: 06/13/21 21:42 Dose: 15 mg Documented by: Ondansetron HCl (Ondansetron 4 Mg/2 Ml Sdv) 4 mg IVPUSH Q4H PRN PRN Reason: Nausea/Vomiting Polyethylene Glycol (Polyethylene Glycol 3350 Powder 17 Gm Packet) 17 gm PO BEDTIME [facility] Polyethylene Glycol (Polyethylene Glycol 3350 Powder 17 Gm Packet) 17 gm PO DAILY PRN PRN Reason: Constipation Last Admin: 06/11/21 21:05 Dose: 17 gm Documented by: Polyethylene Glycol (Polyethylene Glycol 3350 Powder 17 Gm Packet) 17 gm PO BID [facility] Last Admin: 06/14/21 09:39 Dose: 17 gm Documented by: Sodium Chloride (Sodium Chloride 0.9% 10 Ml Syringe) 10 ml FLUSH ASDIRECTED PRN PRN Reason: Keep Vein Open Last Admin: 06/07/21 16:56 Dose: 10 ml Documented by: Sodium Chloride (Sodium Chloride 0.9% 2.5 Ml Syringe) 2.5 ml FLUSH ASDIRECTED PRN PRN Reason: Keep Vein Open Last Admin: 06/07/21 16:57 Dose: 2.5 ml Documented by: Thiamine HCl (Thiamine 200 Mg/2 Ml Mdv) Confirm Administered Dose 200 mg .ROUTE .STK-MED ONE Stop: 06/13/21 10:29 Last Admin: 06/13/21 10:53 Dose: Not Given Documented by: Thiamine HCl (Thiamine 200 Mg/2 Ml Mdv) 100 mg IVPUSH DAILY RUTHY Last Admin: 06/14/21 09:42 Dose: 100 mg Documented by: - Exam General: Reports: Alert, Oriented, Cooperative, No Acute Distress HEENT: Reports: Pupils Reactive, EOMI Neck: Reports: Supple Lungs: Reports: Clear to Auscultation Cardiovascular: Reports: Regular Rate, Regular Rhythm, No Murmurs GI/Abdominal Exam: Normal Bowel Sounds, Soft, Non-Tender, No Distention Extremities: Normal Inspection, Non-Tender, No Pedal Edema. No: Joint Swelling Skin: Reports: Warm, Dry, Intact Neurological: Reports: No New Focal Deficit Psy/Mental Status: Reports: Alert
== END 2021-06-14 11:40 | DRG 556 ==
LOC: MW.ED 14:57 → MW.MS 17:33
PROVIDERS: ADMIT Student in an Organized Health Care Education/Training Program; ATTEND Student in an Organized Health Care Education/Training Program
DX: R53.1 Weakness (principal); R26.2 Difficulty in walking, not elsewhere classified; Z68.1 Body mass index [BMI] 19.9 or less, adult; F10.10 Alcohol abuse, uncomplicated; M62.81 Muscle weakness (generalized); R63.4 Abnormal weight loss; R27.0 Ataxia, unspecified; F10.20 Alcohol dependence, uncomplicated; R29.6 Repeated falls; K56.41 Fecal impaction; R13.10 Dysphagia, unspecified; H54.7 Unspecified visual loss; Y90.9 Presence of alcohol in blood, level not specified; Z79.82 Long term (current) use of aspirin; Z79.899 Other long term (current) drug therapy
CPT/HCPCS: 36415; 70450; 80053; 81003; 82607; 83605; 83690; 83735; 84439; 84443; 84484; 85025; 93005; 99285; J7030; 70492; 70492-26; 70551; 70551-26; 71045; 71045-26; 74176; 74176-26; 80048; 84100; 92610-GN; 93010; 97110-GO; 97110-GP; 97162-GP; 97165-GO; 99284; A9270-GY; J1650; J3411; J7120; Q9967

== ENCOUNTER 2021-11-22 11:19 | Emergency (ER) | payer MEDICARE, OTHER, MEDICAID ==
--- NOTE | 2021-11-22 11:47 | EDM.PDOC ---
ED HPI GENERAL MEDICAL PROBLEM - General Chief Complaint: General Stated Complaint: "LOW BLOOD PRESSURE, DEHYDRATED" Time Seen by Provider: 11/22/21 11:31 Source of Information: Reports: Patient History Limitations: Reports: No Limitations - Related Data Allergies Allergy/AdvReac Type Severity Reaction Status Date / Time No Known Allergies Allergy Verified 11/22/21 11:29 Home Meds: Home Meds Multivitamin 1 tab PO DAILY 05/31/21 [History] Aspirin 81 mg PO DAILY 06/07/21 [History] Cyanocobalamin/Folic AC/Vit B6 [B Complex-Folic Acid] 1 tab PO DAILY 06/07/21 [History] Levothyroxine [Synthroid] 11/22/21 [History] QUEtiapine [SEROquel] 11/22/21 [History] Past Medical History HEENT History: Reports: None Other HEENT History: glasses Cardiovascular History: Reports: Hypertension Other Cardiovascular History: previously on metoprolol for blood pressure, denies taking medication at this time Respiratory History: Reports: None Gastrointestinal History: Reports: None Genitourinary History: Reports: None Other Musculoskeletal History: Fractured neck in 2001, refused surgery Neurological History: Reports: None Psychiatric History: Reports: None Other Psychiatric History: ETOH abuse Endocrine/Metabolic History: Reports: None Hematologic History: Reports: None Immunologic History: Reports: None Oncologic (Cancer) History: Reports: None Dermatologic History: Reports: None - Infectious Disease History Infectious Disease History: Reports: Chicken Pox, Measles, Mumps - Past Surgical History Head Surgeries/Procedures: Reports: None HEENT Surgical History: Reports: None Cardiovascular Surgical History: Reports: None GI Surgical History: Reports: None Male Surgical History: Reports: None Endocrine Surgical History: Reports: None Neurological Surgical History: Reports: None Other Neurological Surgeries/Procedures: hx neck fracture Musculoskeletal Surgical History: Reports: None Oncologic Surgical History: Reports: None Dermatological Surgical History: Reports: None Social & Family History - Family History Family Medical History: No Pertinent Family History HEENT: Reports: None Cardiac: Reports: None Respiratory: Reports: None GI: Reports: None : Reports: None OBGYN: Reports: None Musculoskeletal: Reports: None Neurological: Reports: None Psychiatric: Reports: None Endocrine/Metabolic: Reports: None Hematologic: Reports: None Immunologic: Reports: None Dermatologic: Reports: None Oncologic: Reports: None - Caffeine Use Caffeine Use: Reports: None - Recreational Drug Use Recreational Drug Use: No Course - Vital Signs Last Recorded V/S: Last Vital Signs Temp 96.9 F 11/22/21 11:33 Pulse 83 11/22/21 11:33 Resp 18 11/22/21 11:33 BP 101/66 11/22/21 11:33 Pulse Ox 98 11/22/21 11:33 Departure - Discharge Information Sepsis Event Note (ED) - Evaluation Sepsis Screening Result: No Definite Risk - Focused Exam Vital Signs: Vital Signs Temp Pulse Resp BP Pulse Ox 11/22/21 11:33 96.9 F 83 18 101/66 98
[2021-11-22] MEDS ORDERED: Sodium Chloride 0.9% 1,000 ML IV ONE (11:54)
--- NOTE | 2021-11-22 12:09 | EDM.PDOC ---
<Trupti Myers - Last Filed: 11/22/21 16:38> ED HPI GENERAL MEDICAL PROBLEM - General Chief Complaint: General Stated Complaint: "LOW BLOOD PRESSURE, DEHYDRATED" Time Seen by Provider: 11/22/21 11:31 Source of Information: Reports: Patient History Limitations: Reports: No Limitations - History of Present Illness INITIAL COMMENTS - FREE TEXT/NARRATIVE: 71-year-old male presents to the ER with constipation, rectal pain and dehydration. He was admitted to the hospital and [facility] for generalized weakness, ambulatory dysfunction with frequent falls, malnutrition. CT abdomen pelvis at that time showed fecal impaction of the rectum and perirectal inflammatory changes representing colitis/proctitis. He was discharged to a custodial facility for weakness and discharged on 10/26/2021. He is joined by daughter. She states that he is now living alone. He claims he is eating well, including fruits and vegetables. He has lost 6 pounds since being discharged from SNF. Patient denies fever, chills, diarrhea, chest pain, palpitations, lightheadedness, dizziness or syncope. - Related Data Allergies Allergy/AdvReac Type Severity Reaction Status Date / Time No Known Allergies Allergy Verified 11/22/21 11:29 Home Meds: Home Meds Multivitamin 1 tab PO DAILY 05/31/21 [History] Aspirin 81 mg PO DAILY 06/07/21 [History] Cyanocobalamin/Folic AC/Vit B6 [B Complex-Folic Acid] 1 tab PO DAILY 06/07/21 [History] Docusate Sodium [Colace] 100 mg PO BID 30 Days #60 capsule 11/22/21 [Rx] Levothyroxine [Synthroid] 11/22/21 [History] QUEtiapine [SEROquel] 11/22/21 [History] polyethylene glycoL 3350 [MiraLAX] 17 gm PO DAILY 30 Days #30 packet 11/22/21 [Rx] Past Medical History HEENT History: Reports: None Other HEENT History: glasses Cardiovascular History: Reports: Hypertension Other Cardiovascular History: previously on metoprolol for blood pressure, denies taking medication at this time Respiratory History: Reports: None Gastrointestinal History: Reports: None Genitourinary History: Reports: None Other Musculoskeletal History: Fractured neck in 2001, refused surgery Neurological History: Reports: None Psychiatric History: Reports: None Other Psychiatric History: ETOH abuse Endocrine/Metabolic History: Reports: None Hematologic History: Reports: None Immunologic History: Reports: None Oncologic (Cancer) History: Reports: None Dermatologic History: Reports: None - Infectious Disease History Infectious Disease History: Reports: Chicken Pox, Measles, Mumps - Past Surgical History Head Surgeries/Procedures: Reports: None HEENT Surgical History: Reports: None Cardiovascular Surgical History: Reports: None GI Surgical History: Reports: None Male Surgical History: Reports: None Endocrine Surgical History: Reports: None Neurological Surgical History: Reports: None Other Neurological Surgeries/Procedures: hx neck fracture Musculoskeletal Surgical History: Reports: None Oncologic Surgical History: Reports: None Dermatological Surgical History: Reports: None Social & Family History - Family History Family Medical History: No Pertinent Family History HEENT: Reports: None Cardiac: Reports: None Respiratory: Reports: None GI: Reports: None : Reports: None OBGYN: Reports: None Musculoskeletal: Reports: None Neurological: Reports: None Psychiatric: Reports: None Endocrine/Metabolic: Reports: None Hematologic: Reports: None Immunologic: Reports: None Dermatologic: Reports: None Oncologic: Reports: None - Caffeine Use Caffeine Use: Reports: None - Recreational Drug Use Recreational Drug Use: No ED ROS GENERAL - Review of Systems Review Of Systems: Comprehensive ROS is negative, except as noted in HPI. ED EXAM, GENERAL - Physical Exam Exam: See Below Exam Limited By: No Limitations General Appearance: Alert, No Apparent Distress Eye Exam: Bilateral Eye: Normal Inspection Nose: Normal Inspection Throat/Mouth: Normal Inspection, No Airway Compromise Head: Atraumatic, Normocephalic Neck: Normal Inspection, Supple Respiratory/Chest: No Respiratory Distress, Lungs Clear Cardiovascular: Normal Peripheral Pulses, Regular Rate, Rhythm GI/Abdominal: Normal Bowel Sounds, Soft, Non-Tender Extremities: Normal Inspection, No Pedal Edema Neurological: Alert, Oriented Course - Re-Assessments/Exams Free Text/Narrative Re-Assessment/Exam: 11/22/21 16:40 CBC and CMP unremarkable. CT abdomen pelvis shows apparent constipation, rectum markedly distended with stool. Patient was digitally disimpacted, tolerated it. We will now do enema. Departure - Departure Disposition: Home, Self-Care 01 Condition: Good Clinical Impression: Constipation Qualifiers: Constipation type: unspecified constipation type Qualified Code(s): K59.00 - Constipation, unspecified - Discharge Information *PRESCRIPTION DRUG MONITORING PROGRAM REVIEWED*: Not Applicable *COPY OF PRESCRIPTION DRUG MONITORING REPORT IN PATIENT SOFÍA: Not Applicable Prescriptions: Docusate Sodium [Colace] 100 mg PO BID 30 Days #60 capsule polyethylene glycoL 3350 [MiraLAX] 17 gm PO DAILY 30 Days #30 packet Instructions: Chronic Constipation, Constipation, Adult Referrals: PCP,None [Primary Care Provider] - Forms: ED Department Discharge Additional Instructions: Your medications were sent to [facility]. You need to follow up with your PMD. You may require another disimpaction. You can try an enema at home as well. The following information is given to patients seen in the emergency department who are being discharged to home. This information is to outline your options for follow-up care. We provide all patients seen in our emergency department with a follow-up referral. The need for follow-up, as well as the timing and circumstances, are variable depending upon the specifics of your emergency department visit. If you don't have a primary care physician on staff, we will provide you with a referral. We always advise you to contact your personal physician following an emergency department visit to inform them of the circumstance of the visit and for follow-up with them and/or the need for any referrals to a consulting specialist. The emergency department will also refer you to a specialist when appropriate. This referral assures that you have the opportunity for follow-up care with a specialist. All of these measure are taken in an effort to provide you with optimal care, which includes your follow-up. Under all circumstances we always encourage you to contact your private physician who remains a resource for coordinating your care. When calling for follow-up care, please make the office aware that this follow-up is from your recent emergency room visit. If for any reason you are refused follow-up, please contact the [facility] Emergency Department at and asked to speak to the emergency department charge nurse. Please follow up with your primary care physician. If you do not have a primary care physician, see below: [facility] [address] [place] [id number] [facility] [address] [place] [address] [facility] [address] [place] [id number] Care Plan Goals: You were seen in the ER today for constipation and fecal impaction. It is very important to stay hydrated and eat plenty of fiber. You will be sent home on stool softeners. Is very important you stay compliant with your medications so this does not recur. If you experience fever, chills, severe abdominal pain, no passing of gas, abdominal distention please seek medical attention immediately. The following information is given to patients seen in the emergency department who are being discharged to home. This information is to outline your options for follow-up care. We provide all patients seen in our emergency department with a follow-up referral. The need for follow-up, as well as the timing and circumstances, are variable depending upon the specifics of your emergency department visit. If you don't have a primary care physician on staff, we will provide you with a referral. We always advise you to contact your personal physician following an emergency department visit to inform them of the circumstance of the visit and for follow-up with them and/or the need for any referrals to a consulting spe cialist. The emergency department will also refer you to a specialist when appropriate. This referral assures that you have the opportunity for follow-up care with a specialist. All of these measure are taken in an effort to provide you with optimal care, which includes your follow-up. Under all circumstances we always encourage you to contact your private physician who remains a resource for coordinating your care. When calling for follow-up care, please make the office aware that this follow-up is from your recent emergency room visit. If for any reason you are refused follow-up, please contact the [facility] Emergency Department at and asked to speak to the emergency department charge nurse. [facility] [address] [place] [id number] [facility] [address] [place] [address] Thank you for choosing the [facility] emergency department in [place] for your medical needs today. It was a pleasure caring for you. Today you were seen in the emergency department for Sepsis Event Note (ED) - Evaluation Sepsis Screening Result: No Definite Risk - Problem List & Annotations (1) Abdominal pain SNOMED Code(s): 89585930 Code(s): R10.9 - UNSPECIFIED ABDOMINAL PAIN Status: Acute Current Visit: No (2) Constipation SNOMED Code(s): 18643394 Code(s): K59.00 - CONSTIPATION, UNSPECIFIED Status: Acute Current Visit: No (3) Generalized muscle weakness SNOMED Code(s): 44659055, 33359474 Code(s): M62.81 - MUSCLE WEAKNESS (GENERALIZED) Status: Acute Current Visit: No - Problem List Review Problem List Initiated/Reviewed/Updated: Yes <Albaro Garcia - Last Filed: 11/22/21 18:20> Course - Vital Signs Last Recorded V/S: Last Vital Signs Temp 96.9 F 11/22/21 11:33 Pulse 86 11/22/21 17:10 Resp 18 11/22/21 11:33 BP 103/69 11/22/21 17:19 Pulse Ox 95 11/22/21 17:19 - Orders/Labs/Meds Orders: Active Orders 24 hr Category Date Time Status Communication Order [RC] STAT Care 11/22/21 16:33 Active COPPER, SERUM [REF] Stat Lab 11/22/21 12:51 Received FOLATE, RBC [REF] Stat Lab 11/22/21 12:48 Received METHYLMALONIC ACID, SERUM [REF] Stat Lab 11/22/21 12:48 Received PREALBUMIN [REF] Stat Lab 11/22/21 12:48 Received Saline Lock Insert [OM.PC] Stat Oth 11/22/21 11:55 Ordered Labs: Laboratory Tests 11/22/21 11/22/21 11/22/21 Range/Units 12:15 12:15 12:15 WBC 5.41 (4.0-11.0) K/uL RBC 4.48 L (4.50-5.90) M/uL Hgb 13.8 (13.0-17.0) g/dL Hct 41.7 (38.0-50.0) % MCV 93.1 (80.0-98.0) fL MCH 30.8 (27.0-32.0) pg MCHC 33.1 (31.0-37.0) g/dL RDW Std Deviation 45.9 (28.0-62.0) fl RDW Coeff of Brian 14 (11.0-15.0) % Plt Count 196 (150-400) K/uL MPV 11.50 (7.40-12.00) fL Neut % (Auto) 55.8 (48.0-80.0) % Lymph % (Auto) 29.8 (16.0-40.0) % [facility] % (Auto) 11.8 (0.0-15.0) % Eos % (Auto) 2.2 (0.0-7.0) % Baso % (Auto) 0.4 (0.0-1.5) % Neut # (Auto) 3.0 (1.4-5.7) K/uL Lymph # (Auto) 1.6 (0.6-2.4) K/uL [facility] # (Auto) 0.6 (0.0-0.8) K/uL Eos # (Auto) 0.1 (0.0-0.7) K/uL Baso # (Auto) 0.0 (0.0-0.1) K/uL Nucleated RBC % 0.0 /100WBC Nucleated RBCs # 0 K/uL ESR (0-19) mm/hr Sodium 141 (136-148) mmol/L Potassium 4.4 (3.5-5.1) mmol/L Chloride 105 (98-107) mmol/L Carbon Dioxide 29.1 (21.0-32.0) mmol/L BUN 23 H (7.0-18.0) mg/dL Creatinine 1.1 (0.8-1.3) mg/dL Est Cr Clr Drug Dosing 55.64 mL/min Estimated GFR (MDRD) > 60.0 ml/min Glucose 101 (74-106) mg/dL Lactic Acid 1.5 (0.4-2.0) mmol/L Calcium 9.4 (8.5-10.1) mg/dL Magnesium 2.0 (1.8-2.4) mg/dL Total Bilirubin 0.9 (0.2-1.0) mg/dL AST 31 (15-37) IU/L ALT 39 (14-63) IU/L Alkaline Phosphatase 85 (46-116) U/L C-Reactive Protein <0.20 (0.00-0.90) mg/dL Total Protein 7.2 (6.4-8.2) g/dL Albumin 3.6 (3.4-5.0) g/dL Globulin 3.6 (2.6-4.0) g/dL Albumin/Globulin Ratio 1.0 (0.9-1.6) Lipase 94 (73-393) U/L Vitamin B12 1420 H (193-986) pg/mL Urine Color Urine Appearance Urine pH (5.0-8.0) Ur Specific Eighty Eight (1.001-1.035) Urine Protein (NEGATIVE) mg/dL Urine Glucose (UA) (NEGATIVE) mg/dL Urine Ketones (NEGATIVE) mg/dL Urine Occult Blood (NEGATIVE) Urine Nitrite (NEGATIVE) Urine Bilirubin (NEGATIVE) Urine Urobilinogen (<2.0) EU/dL Ur Leukocyte Esterase (NEGATIVE) SARS-CoV-2 RNA (LINDY) (NEGATIVE) 11/22/21 11/22/21 11/22/21 Range/Units 12:15 12:18 13:20 WBC (4.0-11.0) K/uL RBC (4.50-5.90) M/uL Hgb (13.0-17.0) g/dL Hct (38.0-50.0) % MCV (80.0-98.0) fL MCH (27.0-32.0) pg MCHC (31.0-37.0) g/dL RDW Std Deviation (28.0-62.0) fl RDW Coeff of Brian (11.0-15.0) % Plt Count (150-400) K/uL MPV (7.40-12.00) fL Neut % (Auto) (48.0-80.0) % Lymph % (Auto) (16.0-40.0) % Baylor % (Auto) (0.0-15.0) % Eos % (Auto) (0.0-7.0) % Baso % (Auto) (0.0-1.5) % Neut # (Auto) (1.4-5.7) K/uL Lymph # (Auto) (0.6-2.4) K/uL [facility]lor # (Auto) (0.0-0.8) K/uL Eos # (Auto) (0.0-0.7) K/uL Baso # (Auto) (0.0-0.1) K/uL Nucleated RBC % /100WBC Nucleated RBCs # K/uL ESR 10 (0-19) mm/hr Sodium (136-148) mmol/L Potassium (3.5-5.1) mmol/L Chloride (98-107) mmol/L Carbon Dioxide (21.0-32.0) mmol/L BUN (7.0-18.0) mg/dL Creatinine (0.8-1.3) mg/dL Est Cr Clr Drug Dosing mL/min Estimated GFR (MDRD) ml/min Glucose (74-106) mg/dL Lactic Acid (0.4-2.0) mmol/L Calcium (8.5-10.1) mg/dL Magnesium (1.8-2.4) mg/dL Total Bilirubin (0.2-1.0) mg/dL AST (15-37) IU/L ALT (14-63) IU/L Alkaline Phosphatase (46-116) U/L C-Reactive Protein (0.00-0.90) mg/dL Total Protein (6.4-8.2) g/dL Albumin (3.4-5.0) g/dL Globulin (2.6-4.0) g/dL Albumin/Globulin Ratio (0.9-1.6) Lipase (73-393) U/L Vitamin B12 (193-986) pg/mL Urine Color YELLOW Urine Appearance CLEAR Urine pH 5.5 (5.0-8.0) Ur Specific Eight[place] >= 1.030 (1.001-1.035) Urine Protein NEGATIVE (NEGATIVE) mg/dL Urine Glucose (UA) NEGATIVE (NEGATIVE) mg/dL Urine Ketones NEGATIVE (NEGATIVE) mg/dL Urine Occult Blood NEGATIVE (NEGATIVE) Urine Nitrite NEGATIVE (NEGATIVE) Urine Bilirubin NEGATIVE (NEGATIVE) Urine Urobilinogen 0.2 (<2.0) EU/dL Ur Leukocyte Esterase NEGATIVE (NEGATIVE) SARS-CoV-2 RNA (LINDY) NEGATIVE (NEGATIVE) Meds: Medications Discontinued Medications Generic Name Dose Route Start Last Admin Trade Name Freq PRN Reason Stop Dose Admin Fentanyl 100 mcg 11/22/21 15:40 11/22/21 16:11 Fentanyl 50 Mcg/Ml Sdv IVPUSH 11/22/21 15:41 100 mcg ONETIME ONE Administration Sodium Chloride 1,000 mls @ 999 mls/hr 11/22/21 11:54 11/22/21 12:11 Normal Saline IV 11/22/21 12:54 999 mls/hr .Bolus ONE Administration Iopamidol 100 ml 11/22/21 14:19 11/22/21 14:19 Iopamidol 755 Mg/Ml 500 Ml Multipack Bottle IVPUSH 11/22/21 14:20 100 ml ONETIME STA Administration Lorazepam 1 mg 11/22/21 15:42 11/22/21 16:11 Lorazepam 2 Mg/Ml Sdv IVPUSH 11/22/21 15:43 1 mg ONETIME ONE Administration - Re-Assessments/Exams Free Text/Narrative Re-Assessment/Exam: 11/22/21 18:19 Patient had small BM after enema. Will d/c with bowel regimen, needs PMD f/u Departure - Departure Time of Disposition: 18:19 Sepsis Event Note (ED) - Focused Exam Vital Signs: Vital Signs Temp Pulse Resp BP Pulse Ox 11/22/21 17:19 103/69 95 11/22/21 17:10 86 95/65 95 11/22/21 16:36 72 90/52 L 96 11/22/21 16:12 77 91/59 L 97 11/22/21 15:47 74 115/66 96 11/22/21 13:50 77 100/61 97 11/22/21 13:36 72 104/66 97 11/22/21 12:58 76 99/60 99 11/22/21 12:33 77 92/60 97 11/22/21 12:18 81 98/65 97 11/22/21 11:33 96.9 F 83 18 101/66 98 - My Orders Last 24 Hours: My Active Orders 11/22/21 16:33 Communication Order [RC] STAT - Assessment/Plan Last 24 Hours: My Active Orders 11/22/21 16:33 Communication Order [RC] STAT
--- NOTE | 2021-11-22 12:53 | CR ---
INDICATION: Weakness. TECHNIQUE: Chest 1 view. COMPARISON: Chest radiograph 06/07/2021. FINDINGS: No focal consolidation, pleural effusion, or pneumothorax. Normal heart size and pulmonary vascularity. Elevation of the left hemidiaphragm with underlying gas distended bowel loops similar to prior exam. This causes some rightward mediastinal shift. The bones are unremarkable. IMPRESSION: No acute cardiopulmonary findings. Dictated by Mayuri Page MD @ 11/22/2021 12:52:00 PM (Electronically Signed)
[2021-11-22 13:26] LABS: BLOOD UREA NITROGEN,BUN 23 mg/dL (7.0-18.0); CARBON DIOXIDE,CO2 29.1 mmol/L (21.0-32.0); CHLORIDE,CL 105 mmol/L (98-107); GLUCOSE RANDOM 101 mg/dL (74-106); LIPASE 94 U/L (73-393); POTASSIUM,K 4.4 mmol/L (3.5-5.1); SODIUM,NA 141 mmol/L (136-148)
[2021-11-22] MEDS ORDERED: Iopamidol 755 MG/ML 500 ML Multipack Bottle IVPUSH STA (14:19)
--- NOTE | 2021-11-22 15:19 | CT ---
INDICATION: Constipation. Abdominal pain. History of proctitis. TECHNIQUE: Volumetric helical scanning of the abdomen and pelvis was performed with 100 cc of Isovue 370 contrast material IV. Coronal and sagittal reconstructions were obtained. COMPARISON: Abdomen/pelvis CT of 06/13/2021. FINDINGS: The rectum is markedly distended with stool, greater than on the previous exam. A moderate amount of stool is present in the colon otherwise along with considerable gas. A large indirect left inguinal hernia is demonstrated. Small bowel loops are present within this hernia. Prolapsed contents is increased from the prior study. No incarceration is evident. No free fluid or free air is demonstrated. The liver, bile ducts, spleen, adrenal glands, kidneys and pancreas are unremarkable. No lymphadenopathy is demonstrated. The prostate is normal. Moderate left diaphragmatic elevation is noted. The lung bases are essentially clear. The heart size is normal. Calcified coronary arterial plaque is demonstrated. IMPRESSION: 1. Apparent constipation. Rectum markedly distended with stool, greater than on the previous examination, and moderate by stool throughout the colon along with considerable gas. 2. Large indirect left inguinal hernia containing prolapse small-bowel loops. Prolapsed contents increased from the previous examination. No incarceration evident. 3. Moderate left diaphragmatic elevation. Please note that all CT scans at this facility use dose modulation, iterative reconstruction, and/or weight-based dosing when appropriate to reduce radiation dose to as low as reasonably achievable. Dictated by Jacob Hart MD @ 11/22/2021 3:18:46 PM (Electronically Signed)
[2021-11-22] MEDS ORDERED: fentaNYL 50 MCG/ML SDV IVPUSH ONE (15:40)
[2021-11-22] MEDS ORDERED: LORazepam 2 MG/ML SDV IVPUSH ONE (15:42)
[2021-11-22 19:32] VITALS: BP 127/84; PULSE 100
== END 2021-11-22 19:10 | disposition home or self-care (01) ==
LOC: MW.ED 11:19
DX: K59.00 Constipation, unspecified (principal); I10 Essential (primary) hypertension; Z79.82 Long term (current) use of aspirin; Z79.899 Other long term (current) drug therapy; Z20.822 Contact with and (suspected) exposure to COVID-19
CPT/HCPCS: 36415; 71045; 74177; 80053; 81003; 82525; 82607; 82747; 83605; 83690; 83735; 83921; 84134; 85014; 85025; 85652; 86140; 96374; 96375; 99284; J2060; J3010; J7030; Q9967; U0002

== ENCOUNTER 2021-11-26 14:39 | Inpatient (IN) | payer MEDICARE, OTHER ==
[2021-11-26] MEDS ORDERED: Ondansetron 4 MG/2 ML SDV IVPUSH ONE (16:19)
[2021-11-26] MEDS ORDERED: Sodium Chloride 0.9% 10 ML Syringe FLUSH PRN (16:19)
[2021-11-26] MEDS ORDERED: HYDROmorphone 1 MG/ML Syringe IVPUSH ONE ×2 (16:19→18:41)
[2021-11-26] MEDS ORDERED: Sodium Chloride 0.9% 2.5 ML Syringe FLUSH PRN (16:19)
--- NOTE | 2021-11-26 17:03 | PCM.SN.2 ---
- Free Text/Narrative Note: 1703 p.m. I have needed attempt with gentle pressure after Trendelenburg ice and medication to reduce the hernia on the left side and was unable to do so. The provider taking care of the patient will now discussed the case with general surgery.
[2021-11-26 18:01] LABS: BLOOD UREA NITROGEN,BUN 14 mg/dL (7.0-18.0); CARBON DIOXIDE,CO2 27.2 mmol/L (21.0-32.0); CHLORIDE,CL 98 mmol/L (98-107); GLUCOSE RANDOM 97 mg/dL (74-106); POTASSIUM,K 4.1 mmol/L (3.5-5.1); SODIUM,NA 134 mmol/L (136-148)
--- NOTE | 2021-11-26 18:26 | EDM.PDOC ---
ED HPI GENERAL MEDICAL PROBLEM - General Chief Complaint: Abdominal Pain Stated Complaint: PAIN Time Seen by Provider: 11/26/21 14:41 Source of Information: Reports: Patient History Limitations: Reports: No Limitations - History of Present Illness INITIAL COMMENTS - FREE TEXT/NARRATIVE: HISTORY AND PHYSICAL: History of present illness: Patient is a 71-year-old male who presents emergency room today with concern of a left inguinal hernia that has been out since 5 AM that he is unable to get reduced and causing him pain and discomfort. Patient states that he has had a hernia of the area for years but states that this morning it popped out, became large and painful and he has not been able to get it to go back in. Patient states that he was seen here in in the emergency room 4 days ago and states that at that time he was having rectal pain and found to have severe constipation. Patient states that those symptoms have improved but states that the hernia is more painful. Patient denies any direct trauma or injury or any other symptoms or concerns. Patient denies fever, chills, chest pain, shortness of breath, or cough. Denies headache, neck stiff ness, change in vision, syncope, or near syncope. Denies nausea, vomiting, abdominal pain, diarrhea, constipation, or dysuria. Has not noted any blood in urine or stool. Patient has been eating and drinking appropri ately. Review of systems: As per history of present illness and below otherwise all systems reviewed and negative. Past medical history: As per history of present illness and as reviewed below otherwise noncontributory. Surgical history: As per history of present illness and as reviewed below otherwise noncontributory. Social history: See social history for further information Family history: As per history of present illness and as reviewed below otherwise noncontributory. Physical exam: General: Patient is alert, oriented, and in no acute distress. Patient laying on exam table, appearing uncomfortable holding left inguinal region. Vitals stable and reviewed by me. HEENT: Atraumatic, normocephalic, pupils equal and reactive bilaterally, negative for conjunctival pallor or scleral icterus, mucous membranes moist, throat clear, neck supple, nontender, trachea midline. No drooling or trismus noted. No meningeal signs. No hot potato voice noted. Lungs: Clear to auscultation, breath sounds equal bilaterally, chest nontender. Heart: S1S2, regular rate and rhythm without overt murmur Abdomen: Soft, nondistended, nontender. Negative for masses or hepatosplenomegaly. Negative for costovertebral tenderness. Pelvis: Stable nontender. Genitourinary: Cooper Helper at bedside Eli Moreno RN. There is a large left inguinal hernia of the left. No testicle pain, penile drainage. Rectal: Deferred. Skin: Intact, warm, dry. No lesions or rashes noted. Extremities: Atraumatic, negative for cords or calf pain. Neurovascular unremarkable. Neuro: Awake, alert, oriented. Cranial nerves II through XII unremarkable. Cerebellum unremarkable. Motor and sensory unremarkable throughout. Exam nonfocal. Medical Decision Making: Patient is a 71-year-old male who presents emergency room today with concern of a left inguinal hernia that he has been unable to reduce since 5 AM. Upon arrival to the ED, patient is laying on exam table, does appear quite uncomfortable holding his left inguinal region. Examination of left inguinal region does show that there is a large hernia. Patient was immediately placed in trandelenberg position withe ice packs placed on the hernia. He was left in this position for 30 minutes and IV established and pain medication provided. Despite this, I made multiple attempts to get the hernia to reduce, however, I was able to. At this time, I did asked Dr. Nix to come in and try to reduce the hernia. He was also unable to reduce it. See his official consult note. Call and speak to the general surgeon on-call, Dr. Horn, and thoroughly discussed patient's case. He would like patient to have a CT and will plan to come and see patient. Mild derangements of CBC and CMP are unremarkable. Lactic acid is within normal limits. Negative. Dr. Horn was unable to reduce the hernia at bedside. His plan is to take patient to the operating room then admit to inpatient. See his official consult note for further treatment and disposition specifics. Voices understanding and is agreeable to plan of care. Denies any further questions or concerns at this time. Diagnostics: CBC, CMP, Lactate, Abd/Pelvic CT w/o contrast Therapeutics: Dilaudid, Zofran Impression: Left inguinal hernia, strangulated Plan: Inpatient to Dr. Horn, general surgery with plan to go to the OR Definitive disposition and diagnosis as appropriate pending reevaluation and review of above. Abdominal Pain Score (Numeric/FACES): 9 - Related Data Allergies Allergy/AdvReac Type Severity Reaction Status Date / Time No Known Allergies Allergy Verified 11/26/21 15:19 Home Meds: Home Meds Multivitamin 1 tab PO DAILY 05/31/21 [History] Aspirin 81 mg PO DAILY 06/07/21 [History] Cyanocobalamin/Folic AC/Vit B6 [B Complex-Folic Acid] 1 tab PO DAILY 06/07/21 [History] Docusate Sodium [Colace] 100 mg PO BID 30 Days #60 capsule 11/22/21 [Rx] Levothyroxine [Synthroid] 11/22/21 [History] QUEtiapine [SEROquel] 11/22/21 [History] polyethylene glycoL 3350 [MiraLAX] 17 gm PO DAILY 30 Days #30 packet 11/22/21 [Rx] Past Medical History HEENT History: Reports: None Other HEENT History: glasses Cardiovascular History: Reports: Hypertension Other Cardiovascular History: previously on metoprolol for blood pressure, denies taking medication at this time Respiratory History: Reports: None Gastrointestinal History: Reports: None Genitourinary History: Reports: None Other Musculoskeletal History: Fractured neck in 2001, refused surgery Neurological History: Reports: None Psychiatric History: Reports: None Other Psychiatric History: ETOH abuse Endocrine/Metabolic History: Reports: None Hematologic History: Reports: None Immunologic History: Reports: None Oncologic (Cancer) History: Reports: None Dermatologic History: Reports: None - Infectious Disease History Infectious Disease History: Reports: Chicken Pox, Measles, Mumps - Past Surgical History Head Surgeries/Procedures: Reports: None HEENT Surgical History: Reports: None Cardiovascular Surgical History: Reports: None GI Surgical History: Reports: None Male Surgical History: Reports: None Endocrine Surgical History: Reports: None Neurological Surgical History: Reports: None Other Neurological Surgeries/Procedures: hx neck fracture Musculoskeletal Surgical History: Reports: None Oncologic Surgical History: Reports: None Dermatological Surgical History: Reports: None Social & Family History - Family History Family Medical History: No Pertinent Family History HEENT: Reports: None Cardiac: Reports: None Respiratory: Reports: None GI: Reports: None : Reports: None OBGYN: Reports: None Musculoskeletal: Reports: None Neurological: Reports: None Psychiatric: Reports: None Endocrine/Metabolic: Reports: None Hematologic: Reports: None Immunologic: Reports: None Dermatologic: Reports: None Oncologic: Reports: None - Tobacco Use Second Hand Smoke Exposure: No - Caffeine Use Caffeine Use: Reports: None - Recreational Drug Use Recreational Drug Use: No ED ROS GENERAL - Review of Systems Review Of Systems: Comprehensive ROS is negative, except as noted in HPI. ED EXAM, GENERAL - Physical Exam Exam: See Below (see dictation) Course - Vital Signs Last Recorded V/S: Last Vital Signs Temp 96.7 F L 11/26/21 15:16 Pulse 84 11/26/21 17:33 Resp 16 11/26/21 17:33 BP 142/88 H 11/26/21 17:33 Pulse Ox 98 11/26/21 17:33 - Orders/Labs/Meds Orders: Active Orders 24 hr Category Date Time Status Admission Status [Patient Status] [ADT] Stat ADT 11/26/21 19:12 Active Insert Urinary Catheter [OM.PC] Q24H Care 11/26/21 17:15 Ordered Notify Provider Consults [RC] ASDIRECTED Care 11/26/21 18:18 Active Urinary Catheter Assessment [RC] ASDIRECTED Care 11/26/21 17:16 Active Consult to Physician [CONS] Stat Cons 11/26/21 18:17 Active Sodium Chloride 0.9% [Saline Flush] Med 11/26/21 16:19 Active 10 ml FLUSH ASDIRECTED PRN Sodium Chloride 0.9% [Saline Flush] Med 11/26/21 16:19 Active 2.5 ml FLUSH ASDIRECTED PRN Saline Lock Insert [OM.PC] Stat Oth 11/26/21 16:19 Ordered Medication Orders Sodium Chloride (Sodium Chloride 0.9% 10 Ml Syringe) 10 ml FLUSH ASDIRECTED PRN PRN Reason: Keep Vein Open Last Admin: 11/26/21 16:48 Dose: 10 ml Documented by: JULIAN Sodium Chloride (Sodium Chloride 0.9% 2.5 Ml Syringe) 2.5 ml FLUSH ASDIRECTED PRN PRN Reason: Keep Vein Open Last Admin: 11/26/21 16:48 Dose: 2.5 ml Documented by: JULIAN Labs: Laboratory Tests 11/26/21 11/26/21 11/26/21 Range/Units 17:18 17:18 17:18 WBC 7.41 (4.0-11.0) K/uL RBC 4.46 L (4.50-5.90) M/uL Hgb 13.9 (13.0-17.0) g/dL Hct 40.5 (38.0-50.0) % MCV 90.8 (80.0-98.0) fL MCH 31.2 (27.0-32.0) pg MCHC 34.3 (31.0-37.0) g/dL RDW Std Deviation 43.9 (28.0-62.0) fl RDW Coeff of Brian 13 (11.0-15.0) % Plt Count 183 (150-400) K/uL MPV 11.90 (7.40-12.00) fL Neut % (Auto) 68.7 (48.0-80.0) % Lymph % (Auto) 22.5 (16.0-40.0) % [place] % (Auto) 7.2 (0.0-15.0) % Eos % (Auto) 1.5 (0.0-7.0) % Baso % (Auto) 0.1 (0.0-1.5) % Neut # (Auto) 5.1 (1.4-5.7) K/uL Lymph # (Auto) 1.7 (0.6-2.4) K/uL [place] # (Auto) 0.5 (0.0-0.8) K/uL Eos # (Auto) 0.1 (0.0-0.7) K/uL Baso # (Auto) 0.0 (0.0-0.1) K/uL Nucleated RBC % 0.0 /100WBC Nucleated RBCs # 0 K/uL Sodium 134 L (136-148) mmol/L Potassium 4.1 (3.5-5.1) mmol/L Chloride 98 (98-107) mmol/L Carbon Dioxide 27.2 (21.0-32.0) mmol/L BUN 14 (7.0-18.0) mg/dL Creatinine 0.8 (0.8-1.3) mg/dL Est Cr Clr Drug Dosing 80.73 mL/min Estimated GFR (MDRD) > 60.0 ml/min Glucose 97 (74-106) mg/dL Lactic Acid 1.5 (0.4-2.0) mmol/L Calcium 9.0 (8.5-10.1) mg/dL Total Bilirubin 0.6 (0.2-1.0) mg/dL AST 30 (15-37) IU/L ALT 33 (14-63) IU/L Alkaline Phosphatase 88 (46-116) U/L Total Protein 7.0 (6.4-8.2) g/dL Albumin 3.5 (3.4-5.0) g/dL Globulin 3.5 (2.6-4.0) g/dL Albumin/Globulin Ratio 1.0 (0.9-1.6) SARS-CoV-2 RNA (LINDY) (NEGATIVE) 11/26/21 Range/Units 17:32 WBC (4.0-11.0) K/uL RBC (4.50-5.90) M/uL Hgb (13.0-17.0) g/dL Hct (38.0-50.0) % MCV (80.0-98.0) fL MCH (27.0-32.0) pg MCHC (31.0-37.0) g/dL RDW Std Deviation (28.0-62.0) fl RDW Coeff of Brian (11.0-15.0) % Plt Count (150-400) K/uL MPV (7.40-12.00) fL Neut % (Auto) (48.0-80.0) % Lymph % (Auto) (16.0-40.0) % [place] % (Auto) (0.0-15.0) % Eos % (Auto) (0.0-7.0) % Baso % (Auto) (0.0-1.5) % Neut # (Auto) (1.4-5.7) K/uL Lymph # (Auto) (0.6-2.4) K/uL [place] # (Auto) (0.0-0.8) K/uL Eos # (Auto) (0.0-0.7) K/uL Baso # (Auto) (0.0-0.1) K/uL Nucleated RBC % /100WBC Nucleated RBCs # K/uL Sodium (136-148) mmol/L Potassium (3.5-5.1) mmol/L Chloride (98-107) mmol/L Carbon Dioxide (21.0-32.0) mmol/L BUN (7.0-18.0) mg/dL Creatinine (0.8-1.3) mg/dL Est Cr Clr Drug Dosing mL/min Estimated GFR (MDRD) ml/min Glucose (74-106) mg/dL Lactic Acid (0.4-2.0) mmol/L Calcium (8.5-10.1) mg/dL Total Bilirubin (0.2-1.0) mg/dL AST (15-37) IU/L ALT (14-63) IU/L Alkaline Phosphatase (46-116) U/L Total Protein (6.4-8.2) g/dL Albumin (3.4-5.0) g/dL Globulin (2.6-4.0) g/dL Albumin/Globulin Ratio (0.9-1.6) SARS-CoV-2 RNA (LINDY) NEGATIVE (NEGATIVE) Meds: Medications Generic Name Dose Route Start Last Admin Trade Name Chepeq PRN Reason Stop Dose Admin Sodium Chloride 10 ml 11/26/21 16:19 11/26/21 16:48 Sodium Chloride 0.9% 10 Ml Syringe FLUSH 10 ml ASDIRECTED PRN Administration Keep Vein Open Sodium Chloride 2.5 ml 11/26/21 16:19 11/26/21 16:48 Sodium Chloride 0.9% 2.5 Ml Syringe FLUSH 2.5 ml ASDIRECTED PRN Administration Keep Vein Open Discontinued Medications Generic Name Dose Route Start Last Admin Trade Name Chepeq PRN Reason Stop Dose Admin Hydromorphone HCl 1 mg 11/26/21 16:19 11/26/21 16:47 Hydromorphone 1 Mg/Ml Syringe IVPUSH 11/26/21 16:20 1 mg ONETIME ONE Administration Hydromorphone HCl 1 mg 11/26/21 18:41 11/26/21 18:48 Hydromorphone 1 Mg/Ml Syringe IVPUSH 11/26/21 18:42 1 mg ONETIME ONE Administration Ondansetron HCl 4 mg 11/26/21 16:19 11/26/21 16:47 Ondansetron 4 Mg/2 Ml Sdv IVPUSH 11/26/21 16:20 4 mg ONETIME ONE Administration Departure - Departure Time of Disposition: 19:24 Disposition: Admitted As Inpatient 64 Clinical Impression: Strangulated inguinal hernia - Discharge Information Referrals: Doreen Cervantes PA [Primary Care Provider] - Forms: ED Department Discharge Sepsis Event Note (ED) - Evaluation Sepsis Screening Result: No Definite Risk - Focused Exam Vital Signs: Vital Signs Temp Pulse Resp BP Pulse Ox 11/26/21 17:33 84 16 142/88 H 98 11/26/21 16:30 88 20 126/79 97 11/26/21 15:16 96.7 F L 80 20 118/72 97 - My Orders Last 24 Hours: My Active Orders 11/26/21 16:19 Sodium Chloride 0.9% [Saline Flush] 10 ml FLUSH ASDIRECTED PRN Sodium Chloride 0.9% [Saline Flush] 2.5 ml FLUSH ASDIRECTED PRN Saline Lock Insert [OM.PC] Stat 11/26/21 17:15 Insert Urinary Catheter [OM.PC] Q24H 11/26/21 17:16 Urinary Catheter Assessment [RC] ASDIRECTED 11/26/21 18:17 Consult to Physician [CONS] Stat 11/26/21 18:18 Notify Provider Consults [RC] ASDIRECTED 11/26/21 19:12 Admission Status [Patient Status] [ADT] Stat - Assessment/Plan Last 24 Hours: My Active Orders 11/26/21 16:19 Sodium Chloride 0.9% [Saline Flush] 10 ml FLUSH ASDIRECTED PRN Sodium Chloride 0.9% [Saline Flush] 2.5 ml FLUSH ASDIRECTED PRN Saline Lock Insert [OM.PC] Stat 11/26/21 17:15 Insert Urinary Catheter [OM.PC] Q24H 11/26/21 17:16 Urinary Catheter Assessment [RC] ASDIRECTED 11/26/21 18:17 Consult to Physician [CONS] Stat 11/26/21 18:18 Notify Provider Consults [RC] ASDIRECTED 11/26/21 19:12 Admission Status [Patient Status] [ADT] Stat
--- NOTE | 2021-11-26 18:58 | CT ---
Indication: Left inguinal hernia Technique: Nonenhanced axial CT imaging through the abdomen and pelvis. Sagittal and coronal reconstructions are provided. Comparison: None Findings: There is a large left inguinal hernia containing distal ileum and likely the cecal tip. There is distention of the herniated bowel segment, with moderate amount of free fluid in the hernia sac, highly suspicious for hernia strangulation. There is moderate distention of the multiple intra-abdominal small bowel immediately proximal to the herniated segment, consistent with small bowel obstruction. There is circumferential thickening involving the segment of bowel immediately distal to the herniated segment, favored to represent ascending colon. There is no bowel pneumatosis, or pneumoperitoneum. There is nonspecific moderate gastric distention. The proximal small bowel demonstrates normal caliber. There is unremarkable noncontrast appearance of the liver, gallbladder, spleen, pancreas, adrenal glands, and kidneys. There is normal caliber of the abdominal aorta. No lymphadenopathy is appreciated in the abdomen or pelvis. Varghese catheter is noted in the urinary bladder. There are multilevel degenerative changes of the lumbar spine. There is moderate elevation of the left hemidiaphragm. Mild atelectasis is noted in the lung bases. Impression: 1. Large left inguinal hernia containing distal ileum and likely the cecal tip, with findings highly suspicious for hernia strangulation and small bowel obstruction. 2. Nonspecific inflammatory changes of the bowel immediately distal to the herniated segment, favored to represent ascending colon. No findings to suggest bowel necrosis or perforation. Please note that all CT scans at this facility use dose modulation, iterative reconstruction, and/or weight-based dosing when appropriate to reduce radiation dose to as low as reasonably achievable. Dictated by Dontae Apodaca MD @ 11/26/2021 6:56:08 PM (Electronically Signed)
--- NOTE | 2021-11-26 20:08 | PCM.PREANE ---
Preanesthetic Assessment - Procedure Proposed Procedure: Inguinal hernia repair - Anesthesia/Transfusion/Family Hx Anesthesia History: Prior Anesthesia Without Reaction Family History of Anesthesia Reaction: No - Review of Systems General: No Symptoms Pulmonary: No Symptoms Cardiovascular: No Symptoms Gastrointestinal: No Symptoms Neurological: No Symptoms Other: Reports: None - Physical Assessment NPO Status Date: 11/26/21 NPO Status Time: 10:00 Vital Signs: Last Vital Signs Temp 36 C L 11/26/21 19:44 Pulse 83 11/26/21 19:44 Resp 18 11/26/21 19:44 BP 115/76 11/26/21 19:44 Pulse Ox 97 11/26/21 19:44 Height: 6 ft 3 in Weight: 69.4 kg ASA Class: 3E Mental Status: Alert & Oriented x3 Airway Class: Mallampati = 1 Dentition: Reports: Normal Dentition Thyro-Mental Finger Breadths: 3 Mouth Opening Finger Breadths: 3 ROM/Head Extension: Limited/Partial Lungs: Clear to Auscultation, Normal Respiratory Effort Cardiovascular: Regular Rate, Regular Rhythm - Lab Values: Laboratory Last Values WBC 7.41 K/uL (4.0-11.0) 11/26/21 17:18 RBC 4.46 M/uL (4.50-5.90) L 11/26/21 17:18 Hgb 13.9 g/dL (13.0-17.0) 11/26/21 17:18 Hct 40.5 % (38.0-50.0) 11/26/21 17:18 MCV 90.8 fL (80.0-98.0) 11/26/21 17:18 MCH 31.2 pg (27.0-32.0) 11/26/21 17:18 MCHC 34.3 g/dL (31.0-37.0) 11/26/21 17:18 RDW Std Deviation 43.9 fl (28.0-62.0) 11/26/21 17:18 RDW Coeff of Brian 13 % (11.0-15.0) 11/26/21 17:18 Plt Count 183 K/uL (150-400) 11/26/21 17:18 MPV 11.90 fL (7.40-12.00) 11/26/21 17:18 Neut % (Auto) 68.7 % (48.0-80.0) 11/26/21 17:18 Lymph % (Auto) 22.5 % (16.0-40.0) 11/26/21 17:18 [place] % (Auto) 7.2 % (0.0-15.0) 11/26/21 17:18 Eos % (Auto) 1.5 % (0.0-7.0) 11/26/21 17:18 Baso % (Auto) 0.1 % (0.0-1.5) 11/26/21 17:18 Neut # (Auto) 5.1 K/uL (1.4-5.7) 11/26/21 17:18 Lymph # (Auto) 1.7 K/uL (0.6-2.4) 11/26/21 17:18 [place] # (Auto) 0.5 K/uL (0.0-0.8) 11/26/21 17:18 Eos # (Auto) 0.1 K/uL (0.0-0.7) 11/26/21 17:18 Baso # (Auto) 0.0 K/uL (0.0-0.1) 11/26/21 17:18 Nucleated RBC % 0.0 /100WBC 11/26/21 17:18 Nucleated RBCs # 0 K/uL 11/26/21 17:18 Sodium 134 mmol/L (136-148) L 11/26/21 17:18 Potassium 4.1 mmol/L (3.5-5.1) 11/26/21 17:18 Chloride 98 mmol/L (98-107) 11/26/21 17:18 Carbon Dioxide 27.2 mmol/L (21.0-32.0) 11/26/21 17:18 BUN 14 mg/dL (7.0-18.0) 11/26/21 17:18 Creatinine 0.8 mg/dL (0.8-1.3) 11/26/21 17:18 Est Cr Clr Drug Dosing 80.73 mL/min 11/26/21 17:18 Estimated GFR (MDRD) > 60.0 ml/min 11/26/21 17:18 Glucose 97 mg/dL (74-106) 11/26/21 17:18 Lactic Acid 1.5 mmol/L (0.4-2.0) 11/26/21 17:18 Calcium 9.0 mg/dL (8.5-10.1) 11/26/21 17:18 Total Bilirubin 0.6 mg/dL (0.2-1.0) 11/26/21 17:18 AST 30 IU/L (15-37) 11/26/21 17:18 ALT 33 IU/L (14-63) 11/26/21 17:18 Alkaline Phosphatase 88 U/L (46-116) 11/26/21 17:18 Total Protein 7.0 g/dL (6.4-8.2) 11/26/21 17:18 Albumin 3.5 g/dL (3.4-5.0) 11/26/21 17:18 Globulin 3.5 g/dL (2.6-4.0) 11/26/21 17:18 Albumin/Globulin Ratio 1.0 (0.9-1.6) 11/26/21 17:18 SARS-CoV-2 RNA (LINDY) NEGATIVE (NEGATIVE) 11/26/21 17:32 - Allergies Allergies/Adverse Reactions: Allergies Allergy/AdvReac Type Severity Reaction Status Date / Time No Known Allergies Allergy Verified 11/26/21 15:19 - Acknowledgements Anesthesia Type Planned: General Anesthesia Pt an Appropriate Candidate for the Planned Anesthesia: Yes Alternatives and Risks of Anesthesia Discussed w Pt/Guardian: Yes Pt/Guardian Understands and Agrees with Anesthesia Plan: Yes PreAnesthesia Questionnaire HEENT History: Reports: None Other HEENT History: glasses Cardiovascular History: Reports: Hypertension Other Cardiovascular History: previously on metoprolol for blood pressure, denies taking medication at this time Respiratory History: Reports: None Gastrointestinal History: Reports: None Genitourinary History: Reports: None Other Musculoskeletal History: Fractured neck in 2001, refused surgery Neurological History: Reports: None Psychiatric History: Reports: None Other Psychiatric History: ETOH abuse Endocrine/Metabolic History: Reports: None Hematologic History: Reports: None Immunologic History: Reports: None Oncologic (Cancer) History: Reports: None Dermatologic History: Reports: None - Infectious Disease History Infectious Disease History: Reports: Chicken Pox, Measles, Mumps - Past Surgical History Head Surgeries/Procedures: Reports: None HEENT Surgical History: Reports: None Cardiovascular Surgical History: Reports: None GI Surgical History: Reports: None Male Surgical History: Reports: None Endocrine Surgical History: Reports: None Neurological Surgical History: Reports: None Other Neurological Surgeries/Procedures: hx neck fracture Musculoskeletal Surgical History: Reports: None Oncologic Surgical History: Reports: None Dermatological Surgical History: Reports: None - SUBSTANCE USE Tobacco Use Within Last Twelve Months: No Second Hand Smoke Exposure: No Recreational Drug Use History: No - HOME MEDS Home Medications: Home Meds Multivitamin 1 tab PO DAILY 05/31/21 [History] Aspirin 81 mg PO DAILY 06/07/21 [History] Cyanocobalamin/Folic AC/Vit B6 [B Complex-Folic Acid] 1 tab PO DAILY 06/07/21 [History] Docusate Sodium [Colace] 100 mg PO BID 30 Days #60 capsule 11/22/21 [Rx] Levothyroxine [Synthroid] 11/22/21 [History] QUEtiapine [SEROquel] 11/22/21 [History] polyethylene glycoL 3350 [MiraLAX] 17 gm PO DAILY 30 Days #30 packet 11/22/21 [Rx] - CURRENT (IN HOUSE) MEDS Current Meds: Current Medications Sodium Chloride (Sodium Chloride 0.9% 10 Ml Syringe) 10 ml FLUSH ASDIRECTED PRN PRN Reason: Keep Vein Open Last Admin: 11/26/21 16:48 Dose: 10 ml Documented by: Sodium Chloride (Sodium Chloride 0.9% 2.5 Ml Syringe) 2.5 ml FLUSH ASDIRECTED PRN PRN Reason: Keep Vein Open Last Admin: 11/26/21 16:48 Dose: 2.5 ml Documented by: Discontinued Medications Hydromorphone HCl (Hydromorphone 1 Mg/Ml Syringe) 1 mg IVPUSH ONETIME ONE Stop: 11/26/21 16:20 Last Admin: 11/26/21 16:47 Dose: 1 mg Documented by: Hydromorphone HCl (Hydromorphone 1 Mg/Ml Syringe) 1 mg IVPUSH ONETIME ONE Stop: 11/26/21 18:42 Last Admin: 11/26/21 18:48 Dose: 1 mg Documented by: Ondansetron HCl (Ondansetron 4 Mg/2 Ml Sdv) 4 mg IVPUSH ONETIME ONE Stop: 11/26/21 16:20 Last Admin: 11/26/21 16:47 Dose: 4 mg Documented by:
[2021-11-26] MEDS ORDERED: ePHEDrine 50 MG/ML SDV ONE (20:13)
[2021-11-26] MEDS ORDERED: Lidocaine 2% 5 ML SDV ONE (20:13)
[2021-11-26] MEDS ORDERED: Rocuronium Bromide 50 MG/5 ML Syringe ONE ×2 (20:13→22:32)
[2021-11-26] MEDS ORDERED: Water For Injection, Sterile 20 ML ONE (20:13)
[2021-11-26] MEDS ORDERED: Dexmedetomidine 200 MCG/2 ML SDV ONE (20:13)
[2021-11-26] MEDS ORDERED: fentaNYL 100 MCG/2 ML SDV ONE (20:15)
[2021-11-26] MEDS ORDERED: Propofol 200 MG/20 ML SDV ONE (20:15)
[2021-11-26] MEDS ORDERED: Esmolol 100 MG/10 ML SDV ONE (20:16)
--- NOTE | 2021-11-26 20:39 | ER ---
HISTORY OF PRESENT ILLNESS: The patient is a pleasant 71-year-old gentleman who said he woke up this morning around 5 a.m. with his left inguinal hernia painful and hard. He reports that usually he is able to reduce his hernia. He says he has had the hernia for about 10 years or so. Again, he has always been able to reduce it. Never really caused him any pain. The patient actually says he was not quite sure it was hernia. He felt he was just "misaligned" Currently, the patient says he is feeling okay lying down. He denies any nausea or vomiting. He said he has been passing some flatus. The ER physician did try to reduce it but was unable to. He did have a CT scan that showed a left inguinal hernia. It looks like there is small bowel in it and maybe even cecum. There also appeared to be a little fluid in the hernia sac. Radiologist read it as a large left inguinal hernia containing distal ileum and likely the cecal tip. Findings highly suspicious for hernia strangulation and small bowel obstruction along with some inflammatory changes to the large bowel distal to the hernia segment, likely representing ascending colon. No findings suggestive of bowel or mucosal perforation. The patient denies any fever or chills at home. The patient does have a history of just malnutrition and failure to thrive at home. He was recently in the long term. He did have a feeding tube placed for his gross malnutrition. The [id number] was in the room and said that he has been doing well at the long term and actually just got out of long term about a month ago. Since then, the patient is at home and is doing okay but is not thriving. He was just seen in the ER a couple of days ago for a fecal impaction. He was manually disimpacted and given enema. The patient did have some bowel movements after that. PAST MEDICAL HISTORY: Consistent for: 1. History of alcoholism. 2. History of malnutrition. 3. History of dehydration. 4. Possible hypothyroidism. CURRENT HOME MEDICATIONS: 1. Multivitamins. 2. Seroquel. 3. Synthroid. ALLERGIES: No known drug allergies. PAST SURGICAL HISTORY: The patient did have a recent feeding tube placed which has been removed. FAMILY HISTORY: Grandfather with colon cancer. SOCIAL HISTORY: Patient denies any tobacco use. He denies any illicit drug use. He denies any alcohol use. Patient said he used to have a drinking problem, but quit 10 years ago. REVIEW OF SYSTEMS: Complete 12+ review of systems was done and was negative except as HPI. URINARY: The patient says today he was having some issues with urination. PHYSICAL EXAMINATION: GENERAL: Patient is lying comfortably in the ER bed. He is alert and oriented, in no acute distress. VITAL SIGNS: Temperature is 96.7, pulse is 84, blood pressure is 142/88, saturating 98% on room air. HEENT: Head is normocephalic, atraumatic. LUNGS: Clear to auscultation bilaterally. No rhonchi or wheezing heard. HEART: Regular rate and rhythm. No murmur appreciated. ABDOMEN: Soft and nondistended. Does have a small healing scar where his old feeding tube was placed. INGUINAL: Does have a large left inguinal hernia. It is hard and tender to palpation. I tried to gently milk this in. I got it a little bit in but was unable to completely reduce it. EXTREMITIES: No edema. NEUROLOGIC: Grossly, no motor or neurologic deficit noted. MUSCULOSKELETAL: Patient is fairly skinny. His height is 6 feet 3 inches and his weight is 153 pounds which will give him a BMI of 19.1. LABORATORY DATA: White cell count is 7.41, hemoglobin is 13.9, platelet count is 183. Sodium is 134, potassium 4.1, chloride 98, BUN is 14, creatinine 0.8, glucose is 97. COVID is negative. IMAGING: As per HPI. ASSESSMENT AND PLAN: This is a pleasant 71-year-old gentleman with at least an incarcerated left inguinal hernia. It has been there for a number years and now has become tender and causing at least small bowel obstruction. I do believe the patient could even be strangulated. I did go over with the patient what a hernia was. I went over repair of it with the risks, goals, and alternatives to repair. Risks include, but are not limited to bleeding, infection, mesh infection, recurrence, injury to underlying structures. I went over that it is tender and there is some fluid in hernia sac, there was a chance that there was some bowel compromise which might need a bowel resection. I went over that we may or may not use a mesh. I went over the chance of nerve entrapment, chronic pain. I also went over with his history of malnutrition, there is a greater chance of hernia recurrence and wound infection. I did talk with the patient that he might potentially benefit from a short stint at the long term, again since he just left there, for recovery. All of the patient's questions were answered along with his [id number]. The patient did need some time to think about this but I highly recommend doing the surgery because not doing the surgery could have a catastrophic outcome. After the patient thought about it, he decided he did want to go forward with surgery. Again, I went over that he might be in the hospital for a period of time. All other questions were answered. OR crew will be coming in. JOSEFINA / SEB /[id number] MTDSharron
[2021-11-26] MEDS ORDERED: Bupivacaine 0.5% 30 ML SDV ONE (21:14)
[2021-11-26] MEDS ORDERED: Phenylephrine 1% 10 MG/ML SDV ONE (21:35)
[2021-11-26] MEDS ORDERED: Ketorolac 30 MG/ML SDV ONE (21:58)
[2021-11-26] MEDS ORDERED: Ondansetron 4 MG/2 ML SDV ONE (21:58)
[2021-11-26] MEDS ORDERED: Sugammadex Sodium 200 MG/2 ML VIAL ONE (21:58)
[2021-11-26] MEDS ORDERED: Dexamethasone 4 MG/ML 5 ML MDV ONE (21:58)
[2021-11-26] MEDS ORDERED: Morphine 4 MG/ML VIAL IVPUSH PRN (22:07)
[2021-11-26] MEDS ORDERED: Albuterol 0.083% 2.5 MG/3 ML Neb Soln NEB PRN (22:07)
[2021-11-26] MEDS ORDERED: fentaNYL 100 MCG/2 ML SDV IVPUSH PRN (22:07)
[2021-11-26] MEDS ORDERED: HYDROmorphone 1 MG/ML Syringe IVPUSH PRN (22:07)
[2021-11-26] MEDS ORDERED: Naloxone 0.4 MG/ML SDV IVPUSH PRN (22:07)
[2021-11-26] MEDS ORDERED: Ondansetron 4 MG/2 ML SDV IVPUSH PRN (22:07)
[2021-11-26] MEDS ORDERED: Octyl 2-Cyanoacrylate 1 Tube ONE (23:46)
--- NOTE | 2021-11-26 23:56 | PCM.OPNOTE ---
- General Post-Op/Procedure Note Date of Surgery/Procedure: 11/26/21 Operative Procedure(s): Open left inguinal hernia repair with mesh Findings: Incarcerated left inguinal hernia dictation number [id number] Pre Op Diagnosis: Incarcerated left inguinal hernia Post-Op Diagnosis: Incarcerated left inguinal hernia Anesthesia Technique: General ET Tube Primary Surgeon: Paulino Horn Pathology: hernia sac EBL in mLs: 50 Complications: None Condition: Fair
--- NOTE | 2021-11-27 00:22 | PCM.POSTAN ---
POST ANESTHESIA ASSESSMENT - MENTAL STATUS Mental Status: Alert, Oriented - VITAL SIGNS Vital Signs: Last Vital Signs Temp 36 C L 11/26/21 19:44 Pulse 83 11/26/21 19:44 Resp 18 11/26/21 19:44 BP 115/76 11/26/21 19:44 Pulse Ox 97 11/26/21 19:44 - RESPIRATORY Respiratory Status: Respiratory Rate WNL, Airway Patent, O2 Saturation Stable - CARDIOVASCULAR CV Status: Pulse Rate WNL, Blood Pressure Stable - GASTROINTESTINAL GI Status: No Symptoms - POST OP HYDRATION Hydration Status: Adequate & Stable
--- NOTE | 2021-11-27 01:43 | PCM48HPAN ---
Post Anesthesia Note - EVALUATION WITHIN 48HRS OF ANESTHETIC Vital Signs in Normal Range: Yes Patient Participated in Evaluation: Yes Respiratory Function Stable: Yes Airway Patent: Yes Cardiovascular Function Stable: Yes Hydration Status Stable: Yes Pain Control Satisfactory: Yes Nausea and Vomiting Control Satisfactory: Yes Mental Status Recovered: Yes Vital Signs: Last Vital Signs Temp 36.8 C 11/27/21 00:00 Pulse 92 11/27/21 01:35 Resp 11 L 11/27/21 01:35 BP 86/54 L 11/27/21 01:35 Pulse Ox 97 11/27/21 01:35
--- NOTE | 2021-11-27 08:48 | OR ---
SURGEON: JESICA YOON MD DATE OF PROCEDURE: 11/27/2021 PREOPERATIVE DIAGNOSIS: Incarcerated left inguinal hernia. POSTOPERATIVE DIAGNOSIS: Incarcerated left inguinal hernia. PROCEDURE PERFORMED: Open left inguinal hernia repair with mesh. ESTIMATED BLOOD LOSS: 50 mL. SPECIMEN: Hernia sac. COMPLICATIONS: None. PRIMARY SURGEON: Jesica Yoon MD REASON FOR PROCEDURE: The patient is a pleasant 71-year-old gentleman who has had a left inguinal hernia for quite some time now. He was always able to reduce it. However, this morning woke up with pain in his left inguinal hernia, was unable to reduce it, and it is much larger. The patient did have a CT scan which showed beginning of a small bowel obstruction and enlarged left inguinal hernia. I did go over with the patient risks, goals, and alternatives to surgery. Risks include but not limited to bleeding, infection, recurrent hernia formation, injury to underlying structures such as spermatic cord leading to injury to the testicle, hematoma formation, seroma formation, and urinary retention. The patient says he understands, wishes to proceed. PROCEDURE IN DETAIL: The patient was brought back to the OR. He was prepped and draped in the usual fashion. SCDs were placed. A Varghese catheter had been placed in the ER. Preoperative antibiotics given and anesthesia was provided by the anesthesia team. After a time-out was performed, an incision was made extending over the pubic tubercle. The patient was fairly skinny, and the incision was carried down through Camper's fascia. I did make a small incision in the external oblique aponeurosis down to the external ring laterally. Now, the hernia sac was carefully cleared and mobilized to the level of the pubic tubercle. The hernia sac was very enlarged because of its contents. I did have to open the incision slightly more medially to get around it entirely. With some gentle pressure, now the inguinal canal open, the hernia content did reduce. Now, the spermatic cord along with cremaster vessels were carefully dissected away from the hernia sac. The hernia sac was fairly large and thick. I did open up the hernia sac at the top. There were no bowel contents in the hernia sac anymore. Because of question of partial strangulation, I did place a 5 mm trocar in the hernia sac with a 5 mm camera and inflated the abdomen. I did inspect the abdominal cavity briefly. It did not appear to have any dark or compromised bowel. The trocar was removed. Now, the hernia sac was removed. With a high ligation, it was suture closed with 2-0 silk appeared that it was an invert. Now, the rest of the groin was inspected. I did some suction irrigation. There was good hemostasis. Now, a Bard mesh was used Onlay mesh. It was secured in place with 2-0 prolene periosteum of the pubic tubercle. Then several sutures were placed in the inguinal ligament. Inferior was also sutured superior to aponeurosis. The tails of the mesh were then placed around and sutured together, making sure that there was good enough room for the spermatic cord. This was formed the internal ring. Now, a local was injected. The inguinal canal was then closed with 3-0 Vicryl in a running stitch. The Vivienne's fascia was then closed interrupted 3-0 Vicryl, and the skin was closed with 4-0 Monocryl. Before we closed the inguinal canal, we did place some coagulation powder, Celestone, into the cavity. Again, there was good hemostasis. At the end of the case, sponge and needle counts were correct both testicles and scrotum. The patient transferred to the recovery room in stable condition. JOSEFINA GRIGSBY /[id number]
--- NOTE | 2021-11-27 10:04 | PN ---
SUBJECTIVE: The patient is resting comfortably in his room. He says that he is feeling great. He says he feels much better than before the surgery. He also says he feels much better than he has in quite some time. He did not realize how much the hernia was bothering him in the past. The patient denies any nausea, vomiting. OBJECTIVE: GENERAL: The patient is lying comfortably in his bed. He is alert and oriented, no acute distress. VITALS: Temperature is 97.8, pulse is 95, blood pressure is 90/57, satting 96% on 2 L. LUNGS: Clear to auscultation bilaterally. No rhonchi or wheezing heard. ABDOMEN: Soft and nontender. He does have his left lower incision, which is clean, dry, and intact with Dermabond in place. Maybe some very minimal bruising. No signs of infection. ASSESSMENT AND PLAN: 71-year-old gentleman, postop day 1 from open inguinal hernia repair, doing well. The patient will advance his diet whenever he may ambulate. There is some concern about him being home. He will have physical therapy and Social Work discuss with him on possible placement in a [facility]. The patient just got out of a [facility] about a month ago. The patient was discussed with Nursing. We will remove his Varghese. JOSEFINA / SEB /[id number]
[2021-11-27 10:37] LABS: BLOOD UREA NITROGEN,BUN 13 mg/dL (7.0-18.0); CARBON DIOXIDE,CO2 26.9 mmol/L (21.0-32.0); CHLORIDE,CL 101 mmol/L (98-107); GLUCOSE RANDOM 132 mg/dL (74-106); POTASSIUM,K 4.9 mmol/L (3.5-5.1); SODIUM,NA 134 mmol/L (136-148)
[2021-11-27] MEDS: Lactated Ringers 1,000 ML IV SCH ×2 (11:21→22:06)
--- NOTE | 2021-11-28 17:13 | PN ---
SUBJECTIVE: The patient is resting comfortably in his room this morning. He says he feels again great. He says he has been up and walking around. He is feeling much better now that the hernia has been repaired. He says he has been voiding and having bowel movements with no issues. He says he tolerated his diet yesterday with no issues. OBJECTIVE: VITAL SIGNS: Temperature is 96.7, heart rate 78, blood pressure is 104/56, saturating 94% on room air. ABDOMEN: Soft, nontender, nondistended. The incision is clean, dry, and intact. Inguinal hernia repair feels intact. No signs of recurrence. ASSESSMENT AND PLAN: Patient is a pleasant 71-year-old gentleman postop day 2 from open inguinal hernia repair from incarcerated hernia. He is doing well. I did talk to the [id number]. Apparently, they have made arrangements with Social Work that he will go to the alf tomorrow. I did talk to the nursing staff. The plan is for discharge tomorrow to alf. JOSEFINA GRIGSBY /[id number]
--- NOTE | 2021-11-29 11:00 | DISCH ---
DATE OF DISCHARGE: 11/29/2021 PRIMARY CARE PHYSICIAN: Doreen Cervantes PRIMARY DISCHARGE DIAGNOSES: Incarcerated left inguinal hernia with small bowel obstruction. SECONDARY DIAGNOSIS: Hypothyroidism SURGERY: Patient underwent open inguinal hernia repair on 11/26/2021. DISCHARGE MEDICATIONS: 1. Seroquel 50 mg p.o. at bedtime. 2. Synthroid 50 mcg p.o. at breakfast. 3. Lexapro 10 mg p.o. daily. 4. Colace 100 mg p.o. b.i.d. 5. Multivitamin daily. 6. Tylenol Extra Strength 500 mg 1 to 2 tablets q.6 hours p.r.n. pain. 7. MiraLAX 17 mg p.o. daily. 8. Aspirin 81 mg p.o. daily. REASON FOR ADMISSION: The patient is a 71-year-old gentleman who has had a longstanding inguinal hernia. This popped out and seem to be unreducible and starting to cause obstruction and fear for strangulation. The patient was brought back to the OR, and the hernia was fixed. HOSPITAL COURSE: The patient tolerated the procedure well. He was transferred back to the hospital for recovery. The patient's recovery was unremarkable. At the time of discharge, the patient was tolerating a diet, having bowel movement and nurses report not taking anything for pain. Patient says he felt great and ready for discharge. The patient was recently in the [facility] for failure to thrive. He just recently was discharged from the [facility]. Family says that he has not been doing well at home. He has been in the ER a couple of times in the short time, he has been out. die out worker and family worked on possible home health vs halfway. They decided to try home health. DISCHARGE INSTRUCTIONS: The patient should take it easy, may get up and walk and stretch his joint but no heavy lifting over 10 pounds. The patient may have a general diet. Incisions should be kept clean and dry. He may shower but no standing water such as bathtubs or hot tubs. The patient does have Dermabond in place. This will fall off on its own. The patient will follow up with me in clinic in about 2 weeks. He will have to follow up sooner if he has issues or problems. DISCHARGE EXAMINATION: GENERAL: The patient is lying comfortably in his room. He is alert and oriented in no acute distress. VITAL SIGNS: Temperature is 97.3, pulse is 84, blood pressure 112/66, and saturating 94% on room air. LUNGS: Clear to auscultation bilaterally. No rhonchi or wheezing heard. ABDOMEN: Soft, nontender, and nondistended. Left groin incision is clean, dry, intact. Dermabond in place. There is minimal tenderness to palpation. JOSEFINA / SEB /[id number] MTDD
[2021-11-29 11:30] VITALS: BP 92/58; PULSE 85
== END 2021-11-29 14:00 | disposition home health service (06) | DRG 351 ==
LOC: MW.ED 14:39 → MW.SDS 19:12 → MW.MS 19:13
PROVIDERS: ADMIT Surgery; ATTEND Surgery
PROC: 0YU60JZ Supplement Left Inguinal Region with Synthetic Substitute, Open Approach (ICD-10-PCS; principal; 2021-11-27)
DX: K40.30 Unilateral inguinal hernia, with obstruction, without gangrene, not specified as recurrent (principal); E46 Unspecified protein-calorie malnutrition; Z68.1 Body mass index [BMI] 19.9 or less, adult; E03.9 Hypothyroidism, unspecified; Z97.3 Presence of spectacles and contact lenses; I10 Essential (primary) hypertension; F10.21 Alcohol dependence, in remission; Z20.822 Contact with and (suspected) exposure to COVID-19; Z79.82 Long term (current) use of aspirin; Z79.890 Hormone replacement therapy; Z79.899 Other long term (current) drug therapy
CPT/HCPCS: 00830; 36415; 51702; 74176; 74176-26; 80048; 80053; 83605; 85025; 96374; 96375; 96376; 99100; 99285-25; A9270-GY; C1781; J0131; J0330; J0690; J1100; J1170; J1885; J2370; J2405; J2704; J3010; J3490; J7120; U0002